=== PATIENT | female | born 1935 | race Caucasian/White ===

== ENCOUNTER 2024-05-23 11:26 | Inpatient (IN) ==
--- NOTE | 2024-05-23 12:07 | Emergency Department Note ---
History of Present Illness General Chief complaint: Dizziness Stated complaint: DIZZY, UNSTEADY GAIT Time Seen by Provider: 05/23/24 11:53 Source: patient, family (Niece who is at the bedside and a nurse), RN notes reviewed and old records reviewed (Old medical records were attempted to be reviewed but there are no old records at this hospital. ) Mode of arrival: ambulatory Limitations: no limitations History of Present Illness This patient is a 88-year-old female who comes in after having lightheadedness and dizziness. She describes it more as feeling like she is going to pass out when she stands up or moves her arms. She does have a history of frequent falls was not fallen recently. About 6 weeks ago, she fell or passed out and had a skull fracture and was inpatient at [facility]. She did not have any surgery. She also may have had a cardiac workup when she was there as well she does have a history aortic stenosis. She has had some intermittent headaches since then. No nausea vomiting no focal numbness or weakness she feels just generally weak. She does live independently at home. Occasional chest pain, this morning lasting up to 5 minutes with some shortness of breath. No abdominal pain. No fever or cough. Home Medications Medication Instructions Recorded Confirmed Type amlodipine 2.5 mg tablet 2.5 mg PO QAM 04/07/23 05/23/24 History aspirin 81 mg chewable tablet 81 mg PO QPM 04/07/23 05/23/24 History multivit with min-folic 1 tab PO QAM 04/07/23 05/23/24 History acid-lutein 400 mcg-250 mcg chewable tablet (Centrum Silver) potassium 99 mg tablet 99 mg PO QAM 04/07/23 05/23/24 History propranolol 10 mg tablet 10 mg PO BID 04/07/23 05/23/24 History calcium carbonate 600 mg-vitamin 1 tab PO QAM 12/15/23 05/23/24 History D3 5 mcg (200 unit) tablet vit C 250 mg-E 90 mg-zinc 40 1 tab PO BID 12/15/23 05/23/24 History mg-copper 1 [id number] chew tablet (PreserVision AREDS-2) Allergies Allergy/AdvReac Type Severity Reaction Status Date / Time Penicillins Allergy Unknown Hives Verified 04/27/24 10:58 Sulfa (Sulfonamide Allergy Unknown Hives Verified 04/27/24 10:58 Antibiotics) adhesive tape AdvReac Unknown skin Verified 04/27/24 10:58 irritation prefers paper tape Past Med/Surg History Problem List (Updated 05/23/24 @ 15:15 by Isak Rudolph MD) Weakness (Acute) Chest pain (Acute) History of traumatic head injury (Acute) History of fall (Acute) History of aortic stenosis (Acute) Aortic insufficiency Near syncope (Acute) Encounter for pre-operative examination Recurrent UTI No pertinent past medical history Nephrolithiasis Gastric peptic ulcer Hypertension Arthritis Pelvicaliectasis Medical History Incomplete bladder emptying History of anesthesia reaction slower to wake up with more recent procedures. 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 Trouble swallowing Occ with eating (improved with drinks in between) ; no issues taking pills Chronic /mild Multiple EGD with stretching - improvement in symptoms Essential tremor HTN (hypertension) if gets up too fast or moves to fast will get wobbly at times. Surgical History Hx of cardiac cath 2022 ? date...done due to Dr. Brown ordered/leaky aortic valve. No known further findings. [facility]. History of lithotripsy History of appendectomy History of colonoscopy History of esophagogastroduodenoscopy (EGD) hx esophagus stretched Hx of tonsillectomy Hx of cholecystectomy History of partial hysterectomy Family History Mother Hypertension Father Cancer Social History Smoking Status: Never smoker Do You Dip or Chew Tobacco: No; Hx Alcohol Use: No Hx Substance Use: No Preferred Language: Macedonian Communication Ability: Effective Communication Ability Comment: phone call with hippa contact, daughterinlaw paige/pt preference per paige. Plant Propagator Required: No Beliefs That Will Affect Care: None marital status: / Current Living Situation: Alone current occupational status: retired Feels Safe at Home: Yes Assistive Devices: Glasses Review of Systems A total of 10 systems reviewed and were otherwise negative Physical Exam Vital Signs Vital Signs - 24 hr 05/23/24 11:29 05/23/24 11:42 05/23/24 11:50 Temperature 36.5 C Temperature Source Temporal Artery Scan Pulse Rate 68 65 Pulse Rate [Apical] 65 Pulse Rhythm Regular Pulse Strength Normal Respiratory Rate 20 16 Respiratory Effort / Characteristics Non-Labored Spontaneous Respiratory Depth Normal Blood Pressure 134/54 L Blood Pressure [Left Arm] 160/71 H Blood Pressure Mean 80 Blood Pressure Mean [Left Arm] 100 Blood Pressure Position Sitting Pulse Oximetry 94 96 Oxygen Delivery Method Room Air Room Air Sepsis Recent Fever Within 48 Hours No Sepsis New/Unexplained Change in Mental Status N/A Sepsis Action Taken by Nursing No Action Required 05/23/24 12:48 05/23/24 14:00 Temperature Temperature Source Pulse Rate Pulse Rate [Apical] 60 64 Pulse Rhythm Pulse Strength Respiratory Rate 16 15 Respiratory Effort / Characteristics Respiratory Depth Blood Pressure Blood Pressure [Left Arm] 124/53 L 154/65 H Blood Pressure Mean Blood Pressure Mean [Left Arm] 76 94 Blood Pressure Position Pulse Oximetry 96 Oxygen Delivery Method Room Air Sepsis Recent Fever Within 48 Hours Sepsis New/Unexplained Change in Mental Status Sepsis Action Taken by Nursing General: Well developed well nourished cachectic older in no acute distress, breathing comfortably on room air. Normal speech HEENT: Normal cephalic atraumatic. There is a scab in the right scalp from where she injured her head 6 weeks ago. pupils are equal round and reactive to light. Extraocular movements are intact. Oropharynx is pink with moist mucous membranes. No swelling of the mouth lips or tongue. Neck: Supple with a midline trachea. No meningeal signs or stiffness, no JVD or bruits. No Stridor. Chest: Clear to auscultation bilaterally. No wheezes or rhonchi. No increased work of breathing. Heart: Regular rate and rhythm without murmurs or gallops. Abdomen: Soft nontender, nondistended without rebound guarding or rigidity. Extremities: No cyanosis clubbing or edema. No calf tenderness or assymetry Spine/Back. Non tender to palpation. No CVA tenderness Skin: Good turgor without rashes. Neurologic exam: Cranial nerves two through 12 are intact. Motor and sensation are intact and symmetrical throughout. Course Administered Medications Discontinued Medications Sodium Chloride (Nss) 250 mls @ 999 mls/hr IV .Q16M ONE Stop: 05/23/24 12:27 Last Infusion: 05/23/24 14:27 Dose: Infused Documented By: Admin: 05/23/24 12:53 Dose: 999 mls/hr Documented By: MARIANA Medical Decision Making Differential Diagnosis Arrhythmia, valvular heart disease, anemia, subdural, intracranial process, electrolyte or metabolic abnormality, infection, UTI Medical Records Attestation: I reviewed the patient's medical records. Home Medications Current Medication List: was personally reviewed by Laboratory Data Attestation: I reviewed the patient's lab results. 05/23/24 11:44 05/23/24 11:44 Lab Results 05/23/24 05/23/24 Range/Units 11:44 14:19 WBC 7.03 (4.8-10.8) K/ul RBC 4.38 (4.20-5.40) M/uL Hgb 13.6 (12.0-16.0) g/dl Hct 41.8 (37.0-47.0) % MCV 95.4 (80.0-100.0) fL MCH 31.1 (25.0-34.0) pg MCHC 32.5 (32.0-36.0) g/dL RDW Std Deviation 46.4 H (36.4-46.3) fL RDW Coeff of David 13.0 (11.5-14.5) % Plt Count 200 (130-400) K/uL MPV 10.4 (9.4-12.4) fL Immature Gran % (Auto) 0.1 % Neut % (Auto) 78.8 % Lymph % (Auto) 12.4 % [place] % (Auto) 7.7 % Eos % (Auto) 0.6 % Baso % (Auto) 0.4 % Neut # (Auto) 5.54 (1.40-6.50) K/uL Lymph # (Auto) 0.87 L (1.20-3.40) K/uL [place] # (Auto) 0.54 (0.11-0.59) K/uL Eos # (Auto) 0.04 (0.00-0.50) K/uL Baso # (Auto) 0.03 (0.00-0.20) K/uL Immature Gran # (Auto) 0.01 (0.01-0.20) K/uL PT 10.3 (9.0-12.0) Seconds INR 0.9 (0.9-1.1) APTT 26 (21-31) Seconds PTT Ratio 1.0 Sodium 141 (136-145) mmol/L Potassium 3.8 (3.5-5.1) mmol/L Chloride 102 (98-107) mmol/L Carbon Dioxide 32 (21-32) mmol/L Anion Gap 7 (3-11) BUN 18 (6-23) mg/dl Creatinine 0.74 (0.6-1.2) mg/dl Est Cr Clr Drug Dosing 27.7 ml/min Est GFR ( Amer) 83.8 ml/min Est GFR (Non-Af Amer) 72.3 ml/min BUN/Creatinine Ratio 24.3 H (10-20) Glucose 145 H (70-99(Fasting)) mg/dl Calcium 10.7 H (8.6-10.3) mg/dl Magnesium 2.1 (1.7-2.4) mg/dl Total Bilirubin 0.9 (0.2-1.0) mg/dl AST 28 (13-39) U/L ALT 16 (7-52) U/L Alkaline Phosphatase 62 (34-104) U/L Troponin I High Sens 9.1 (0-14) pg/ml Total Protein 8.2 (6.0-8.3) gm/dl Albumin 5.1 H (3.4-5.0) gm/dl Globulin 3.1 (2.5-4.0) gm/dl Albumin/Globulin Ratio 1.6 (0.9-2) TSH 4.229 (0.300-4.500) uIu/ml Urine Color Yellow Urine Appearance Cloudy A (Clear) Urine pH 6.5 (4.5-7.5) Ur Specific [place] 1.019 (1.000-1.030) Urine Protein Trace H (Negative) Urine Glucose (UA) Negative (Negative) Urine Ketones Negative (Negative) Urine Blood Negative (Negative) Urine Nitrite Negative (Negative) Urine Bilirubin Negative (Negative) Urine Urobilinogen Negative (Negative) Ur Leukocyte Esterase 2+ H (Negative) Urine WBC (Auto) 21-50 H (0-5) /hpf Urine RBC (Auto) 0-2 (0-2) /hpf U Hyaline Cast (Auto) 3-5 H (0-2) /lpf U Epithel Cells (Auto) 0-2 (0-2) /hpf Urine Bacteria (Auto) None Seen (None Seen) Imaging Data Attestation: I personally reviewed and interpreted this imaging study as follows: My Impression: Head CTno hemorrhage or mass effect seen Chest x-rayno acute infiltrate, failure, pneumothorax seen Radiologist's Impression: Chest X-Ray 05/23/24 12:05 XR chest 1V portable HISTORY: chest pain COMPARISON: Chest CT 02/12/2023. FINDINGS: No pneumothorax. No pleural effusions. The cardiac silhouette is top normal in size. A left lower lobe calcified granuloma is again noted. No acute fractures. No new focal lung consolidations to suggest a pneumonia. No evidence for pulmonary edema. There are few linear scarlike densities within the periphery the right upper lobe. There is an 18 mm focal irregular density within the left lung apex. This is better appreciated on the prior chest CT. IMPRESSION: 1. No acute process within the chest. 2. An 18 mm focal irregular density within the left lung apex which is better appreciated on the prior chest CT. This could represent an area of scarring or a developing pulmonary lesion. Therefore, follow-up nonemergent chest CT in 6 months is recommended to evaluate for stability. ACT 112: Positive. There are findings on this exam that require communication between the performing entity and the patient following Patient Test Result Information Act ([place] Act 112) guidelines. Electronically signed by: Krishna Boyce M.D. 05/23/2024 12:[address] 05/23/24 12:[address] DOSE: 547.75 mGy.cm HISTORY: syncope TECHNIQUE: Multiaxial CT images of the head were performed without the use of intravenous contrast. Automated exposure control was utilized for this study. A dose lowering technique was utilized adhering to the principles of ALARA. Comparison: None. Findings: The paranasal sinuses and mastoid air cells are clear. The calvarium and skull base are intact. There is no mass, hematoma, midline shift, acute infarct. White matter hypodensity is nonspecific but suggestive of microvascular ischemic change. The ventricles and sulci demonstrate mild age-related involutional changes. Impression: No acute intracranial abnormality. ACT 112: Negative or not required by law. Electronically signed by: Krishna Boyce M.D. 05/23/2024 12:49 PM ECG Data Attestation: I personally reviewed and interpreted this ECG as follows: Indication: + chest pain and + weakness Rate (beats per minute): 64 Rhythm: + normal sinus ECG Intervals/blocks: + Normal QRS, + Normal QT and + Normal MI ECG [place]: + Left axis deviation ECG ST segments: + Normal ST segments ECG Findings: no PACs or no PVCs MDM Narrative This patient comes in as scribed above she has been feeling weak and had near syncopal episodes. I am concerned as her niece who is an RN tells me she does have a history of aortic stenosis that could certainly be causing her symptoms or coronary artery disease as well. She also hit her head and had a skull fracture 6 weeks ago so also want a make sure she does have subdural. She has nothing just infection. IV access established blood work was obtained she was hydrated gently with a normal saline bolus. EKG multiple blood testing and CAT scans chest x-ray obtained she was reassessed frequently. Her workup was reassuring with a normal CAT scan. Chest x-ray shows no acute findings, there may be a nodule in the left upper lung. Her cardiac workup thus far is unremarkable with a nonischemic EKG and a normal troponin. She has no significant electrolyte or metabolic abnormalities. Her symptoms seem to be when she raises her arm so I do worry about a subclavian steal. She also has a history of aortic stenosis which could be causing the symptoms as well. I do think she needs a further cardiac workup in the hospital I discussed the case with Dr. Dee , from [facility] , who was consulted and will see the patient in the ER for admission/observation. Continuous cardiac monitoring: Orders placed in EMR for continuous cardiac monitoring: Upon my evaluation patient was noted to be in normal sinus with a rate of 65 Impression & Plan Near syncope, History of aortic stenosis, History of fall, History of traumatic head injury, Chest pain, Weakness Discharge Plan Visit Data Chief Complaint: Dizziness Stated Complaint: DIZZY, UNSTEADY GAIT ED Provider: Isak Rudolph Discharge Problem: Near syncope, History of aortic stenosis, History of fall, History of traumatic head injury, Chest pain, Weakness Forms Stand Alone Forms: My [facility] Prescriptions Prescriptions: No Action amlodipine 2.5 mg tablet 2.5 mg PO QAM aspirin 81 mg tablet,chewable 81 mg PO QPM Centrum Silver 400-250 mcg tablet,chewable 1 tab PO QAM potassium 99 mg tablet 99 mg PO QAM propranolol 10 mg tablet 10 mg PO BID PreserVision AREDS-2 250-90-40-1 mg Tablet,Chewable 1 tab PO BID Patient Comments: swallow form calcium carbonate-vitamin D3 600 mg-5 mcg (200 unit) Tablet 1 tab PO QAM Patient Comments: 20 mcg vitamin d Referrals Referrals: Norma Maynard CRNP [Primary Care Provider] - Discharge Problem: Chest pain Qualifiers: Chest pain type: unspecified Qualified Code(s): R07.9 - Chest pain, unspecified
--- NOTE | 2024-05-23 12:28 | XRay Report ---
XR chest 1V portable HISTORY: chest pain COMPARISON: Chest CT 02/12/2023. FINDINGS: No pneumothorax. No pleural effusions. The cardiac silhouette is top normal in size. A left lower lobe calcified granuloma is again noted. No acute fractures. No new focal lung consolidations to suggest a pneumonia. No evidence for pulmonary edema. There are few linear scarlike densities with in the periphery the right upper lobe. There is an 18 mm focal irregular density within the left lung apex. This is better appreciated on the prior chest CT. IMPRESSION: 1. No acute process within the chest. 2. An 18 mm focal irregular density within the left lung apex which is better appreciated on the prio r chest CT. This could represent an area of scarring or a developing pulmonary lesion. Therefore, fol low-up nonemergent chest CT in 6 months is recommended to evaluate for stability. ACT 112: Positive. There are findings on this exam that require communication between the performing entity and the patient following Patient Test Result Information Act ([place] Act 112) guidelines. Electronically signed by: Krishna Boyce M.D. 05/23/2024 12:26 PM
[2024-05-23 12:29] LABS: Basophils # (auto) 0.03 K/uL (0.00-0.20); Basophils % (auto) 0.4 %; Eosinophils # (auto) 0.04 K/uL (0.00-0.50); Eosinophils % (auto) 0.6 %; Hematocrit (blood only) 41.8 % (37.0-47.0); Hemoglobin 13.6 g/dl (12.0-16.0); Immature Granulocytes # (auto) 0.01 K/uL (0.01-0.20); Immature Granulocytes % (auto) 0.1 %; Lymphocytes # (auto) 0.87 K/uL (1.20-3.40); Lymphocytes % (auto) 12.4 %; Mean Corpuscular Hemoglobin 31.1 pg (25.0-34.0); Mean Corpuscular Hgb Conc 32.5 g/dL (32.0-36.0); Mean Corpuscular Volume 95.4 fL (80.0-100.0); Mean Platelet Volume 10.4 fL (9.4-12.4); Monocytes # (auto) 0.54 K/uL (0.11-0.59); Monocytes % (auto) 7.7 %; Neutrophils # (auto) 5.54 K/uL (1.40-6.50); Neutrophils % (auto) 78.8 %; Platelet Count 200 K/uL (130-400); RDW Standard Deviation 46.4 fL (36.4-46.3); Red Blood Count 4.38 M/uL (4.20-5.40); White Blood Count 7.03 K/ul (4.8-10.8)
[2024-05-23 12:37] LABS: Albumin Globulin Ratio 1.6 (0.9-2); Albumin Level 5.1 gm/dl (3.4-5.0); BUN Creatinine Ratio 24.3 (10-20); Bilirubin,Total 0.9 mg/dl (0.2-1.0); Calcium 10.7 mg/dl (8.6-10.3); Creatinine Clr Calc Pharmacy 27.7 ml/min; Est GFR (African American) 83.8 ml/min; Est GFR (Non-African American) 72.3 ml/min; Globulin 3.1 gm/dl (2.5-4.0); Magnesium 2.1 mg/dl (1.7-2.4); Potassium 3.8 mmol/L (3.5-5.1); Total Protein 8.2 gm/dl (6.0-8.3)
[2024-05-23 12:43] LABS: Troponin I High Sensitivity 9.1 pg/ml (0-14)
--- NOTE | 2024-05-23 12:51 | CT Scan Report ---
HEAD CT NONCONTRAST CT DOSE: 547.75 mGy.cm HISTORY: syncope TECHNIQUE: Multiaxial CT images of the head were performed without the use of intravenous contrast. A utomated exposure control was utilized for this study. A dose lowering technique was utilized adheri ng to the principles of ALARA. Comparison: None. Findings: The paranasal sinuses and mastoid air cells are clear. The calvarium and skull base are int act. There is no mass, hematoma, midline shift, acute infarct. White matter hypodensity is nonspecifi c but suggestive of microvascular ischemic change. The ventricles and sulci demonstrate mild age-rela jeffrey involutional changes. Impression: No acute intracranial abnormality. ACT 112: Negative or not required by law. Electronically signed by: Krishna Boyce M.D. 05/23/2024 12:49 PM
[2024-05-23 12:52] LABS: Thyroid Stimulating Hormone 4.229 uIu/ml (0.300-4.500)
[2024-05-23] MEDS: SODIUM CHLORIDE 0.9% 250 ML IV ONE (12:53)
[2024-05-23 12:58] LABS: INR 0.9 (0.9-1.1); Partial Thromboplastin Time 26 Seconds (21-31); Prothrombin Time 10.3 Seconds (9.0-12.0)
--- NOTE | 2024-05-23 13:38 | History & Physical Report ---
Date of Service May 23, 2024 Assessment & Plan (1) Near syncope: (2) Aortic insufficiency: (3) Hypertension: (4) Recurrent UTI: (5) Pelvicaliectasis: Plan Ms. Powell is an 88 year old woman with past medical history remarkable for spasmodic dysphonia, pelvicaliectasis, essential tremor, severe aortic insufficiency, HTN, gait abnormality presented to [facility] ED due to dizziness and near syncope. Patient admitted for evaluation of dizziness. #Near syncope #Aortic Insufficiency per records #Ambulatory dysfunction #Hx of gait abnormality, use of assistive device at baseline Progressive dizziness, near syncope with mechanical fall 6 weeks ago No cardiac records on file outside of [facility] 11/2023 with documentation of aortic insufficiency CT head reviewed, without intracranial hemorrhage -Admit med/tele to monitor for arrhythmia -ECHO to eval severity of aortic insufficiency, consider Cards -Permissive HTN, allow for pressure in 140-160s -Hold home amlodipine and propranolol for now -Carotid dopplers ordered -Orthostatic vital signs ordered -PT/OT -Fall precautions -Continue ASA -UA r/o infection contributing given history -b12 and folate in am #hypercalcemia hold home PO supplement possible iso dehydration s/p IVF Repeat in am #Essential tremor Hold propranolol for now given above #HTN hold home amlodipine and propranolol #pelvicaliectasis #Hx of recurrent uti follows urology UA as above No signs of overt infection, will hold abx #Severe protein calorie malnutrition BMI 14.4 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 History of Present Illness Chief Complaint: Dizziness Primary Care Provider: KARINA Perea Ms. Powell is an 88 year old woman with past medical history remarkable for spasmodic dysphonia, pelvicaliectasis, essential tremor, severe aortic insufficency, HTN, gait abnormality presented to [facility] ED due to dizziness and near syncope. Patient reports progressive dizziness and near syncope. She states she was dizzy around the time of a fall that resulted in a skull fracture about 6 weeks ago with admission in [place]. Patient states she has only worsened--the dizziness is exacerbated with standing and position changes. She ambulates at baseline with cane/walker (depending if in home or out). Discussed evaluation by neurology in 2020 for gait abnormality, she states the imbalance she feels chronically is different than what she is experiencing. 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 She does endorse intermittent chest pains, that come on spontaneously marked by substernal pressure then resolve in 5-10minutes. She denies any active chest pain, nausea, vomiting. She endorses chronic urinary frequency, but no dysuria at this time. She reports normal bowel movements. She denies any vision changes or focal neuro deficits. Review of recent med clearance for cystoscopy scanned on 12/15/2023 has hand written note from [employer] which states "continue ASA. severe aortic insufficiency, medically managed." In the ED, vitals were notable for BP of 120-130s, HRs in 60s, and O2 sat of high 90s on room air. Labs with Ca 10, suggestive perhaps of dehydration Imaging revealed no sign of acute intracranial abnormality EKG ordered ED interventions: 250cc bolus Patient to be admitted to med/tele for further evaluation and management of dizziness Allergies Allergy/AdvReac Type Severity Reaction Status Date / Time Penicillins Allergy Unknown Hives Verified 04/27/24 10:58 Sulfa (Sulfonamide Allergy Unknown Hives Verified 04/27/24 10:58 Antibiotics) adhesive tape AdvReac Unknown skin Verified 04/27/24 10:58 irritation prefers paper tape Home Medications Medication Instructions Recorded Confirmed Type amlodipine 2.5 mg tablet 2.5 mg PO QAM 04/07/23 05/23/24 History aspirin 81 mg chewable tablet 81 mg PO QPM 04/07/23 05/23/24 History multivit with min-folic 1 tab PO QAM 04/07/23 05/23/24 History acid-lutein 400 mcg-250 mcg chewable tablet (Centrum Silver) potassium 99 mg tablet 99 mg PO QAM 04/07/23 05/23/24 History propranolol 10 mg tablet 10 mg PO BID 04/07/23 05/23/24 History calcium carbonate 600 mg-vitamin 1 tab PO QAM 12/15/23 05/23/24 History D3 5 mcg (200 unit) tablet vit C 250 mg-E 90 mg-zinc 40 1 tab PO BID 12/15/23 05/23/24 History mg-copper 1 [id number]-guyxnu-dscwuv chew tablet (PreserVision AREDS-2) Past Med/Surg History Problem List (Updated 05/23/24 @ 14:28 by Fabby Dee MD) Aortic insufficiency Near syncope Encounter for pre-operative examination Recurrent UTI No pertinent past medical history Nephrolithiasis Gastric peptic ulcer Hypertension Arthritis Pelvicaliectasis Medical History Incomplete bladder emptying History of anesthesia reaction slower to wake up with more recent procedures. 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 Trouble swallowing Occ with eating (improved with drinks in between) ; no issues taking pills Chronic /mild Multiple EGD with stretching - improvement in symptoms Essential tremor HTN (hypertension) if gets up too fast or moves to fast will get wobbly at times. Surgical History Hx of cardiac cath 2022 ? date...done due to Dr. Brown ordered/leaky aortic valve. No known further findings. [facility]. History of lithotripsy History of appendectomy History of colonoscopy History of esophagogastroduodenoscopy (EGD) hx esophagus stretched Hx of tonsillectomy Hx of cholecystectomy History of partial hysterectomy Family History Mother Hypertension Father Cancer Social History Smoking Status: Never smoker Do You Dip or Chew Tobacco: No; Hx Alcohol Use: No Hx Substance Use: No Preferred Language: Georgian Communication Ability: Effective Communication Ability Comment: phone call with hippa contact, daughterinlaw paige/pt preference per paige. 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 Head: (-) headache, (-) dizziness. Eye: (-) blurring of vision, (-) double vision, (-) redness. Ear: (-) hearing loss, (-) discharge, (-) vertigo Nose: (-) discharge, (-) bleeding, (-) congestion, (-) post nasal drip. Throat: (-) sore throat, (-) hoarseness of voice, (-) odynophagia. Cardiovascular: (+) chest pain--intermittently, (-) palpitations, (+) near syncope, (-) orthopnea, (-) PND, (-) leg swelling. Respiratory: (+) shortness of breath, intermittently, (-) cough, (-) wheezing, (-) hemoptysis. Neuro: (-) weakness in extremities, (-) numbness, (-) tingling, (-) tremor., (+) dizziness Gastrointestinal: (-) belly pain, (-) belly distension, (-) nausea, (-) vomiting, (-) diarrhea, (-) constipation hematochezia, (-) bowel incontinence Genitourinary: (-) hematuria, (-) dysuria, (-) polyuria, (-) hesitancy, (+) frequency, (-) urinary incontinence. Musculoskeletal: (-) myalgia, (-) arthralgia. Skin: (-) rashes. Endocrine: (-) heat/cold intolerance. Psychiatry: (-) depression, (-) hallucination. Physical Exam Physical Exam: GENERAL APPEARANCE: AxOx4, thin cachectic female pleasant HEENT: NC, AT. EOMI, clear conjunctiva, oropharynx clear. dry mucous membranes NECK: No stiffness or restricted ROM. HEART: Normal rate and regular rhythm, +HARRY LUNGS: CTAB, moving air well. No crackles or wheezes are heard. ABDOMEN: Soft, nontender, nondistended with good bowel sounds heard. EXTREMITIES: Without cyanosis, clubbing or edema. NEUROLOGICAL: Grossly nonfocal. Alert and oriented, moving all 4 extremities. CN not formally tested but appear grossly intact. Observed to ambulate with normal gait. Skin: Warm and dry without any rash. Results & Data Results & Data Vital Signs (Past 12 Hours) Vital Signs Temp Pulse Pulse Resp BP BP Pulse Ox 05/23/24 12:48 60 16 124/53 L 96 05/23/24 11:50 65 16 160/71 H 96 05/23/24 11:42 65 05/23/24 11:29 36.5 C 68 20 134/54 L 94 O2 Del Method 05/23/24 12:48 Room Air 05/23/24 11:50 Room Air 05/23/24 11:42 05/23/24 11:29 Room Air Laboratory Results Short CBC 05/23/24 Range/Units 11:44 WBC 7.03 (4.8-10.8) K/ul Hgb 13.6 (12.0-16.0) g/dl Hct 41.8 (37.0-47.0) % Plt Count 200 (130-400) K/uL BMP 05/23/24 11:44 Sodium 141 Potassium 3.8 Chloride 102 Carbon Dioxide 32 BUN 18 Creatinine 0.74 Glucose 145 H Calcium 10.7 H Liver Function 05/23/24 Range/Units 11:44 Total Bilirubin 0.9 (0.2-1.0) mg/dl AST 28 (13-39) U/L ALT 16 (7-52) U/L Alkaline Phosphatase 62 (34-104) U/L Albumin 5.1 H (3.4-5.0) gm/dl Diagnostic Findings EM08/2021: ;Abnormal study. 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 The subtle findings are likely within normal limits or appropriate for age. There is no electrophysiological evidence of a myopathy. Chest X-Ray 05/23/24 12:05 XR chest 1V portable HISTORY: chest pain COMPARISON: Chest CT 02/12/2023. FINDINGS: No pneumothorax. No pleural effusions. The cardiac silhouette is top normal in size. A left lower lobe calcified granuloma is again noted. No acute fractures. No new focal lung consolidations to suggest a pneumonia. No evidence for pulmonary edema. There are few linear scarlike densities within the periphery the right upper lobe. There is an 18 mm focal irregular density within the left lung apex. This is better appreciated on the prior chest CT. IMPRESSION: 1. No acute process within the chest. 2. An 18 mm focal irregular density within the left lung apex which is better appreciated on the prior chest CT. This could represent an area of scarring or a developing pulmonary lesion. Therefore, follow-up nonemergent chest CT in 6 months is recommended to evaluate for stability. ACT 112: Positive. There are findings on this exam that require communication between the performing entity and the patient following Patient Test Result Information Act ([place] Act 112) guidelines. Electronically signed by: Krishna Boyce M.D. 05/23/2024 12:[address] 05/23/24 12:[address] DOSE: 547.75 mGy.cm HISTORY: syncope TECHNIQUE: Multiaxial CT images of the head were performed without the use of intravenous contrast. Automated exposure control was utilized for this study. A dose lowering technique was utilized adhering to the principles of ALARA. Comparison: None. Findings: The paranasal sinuses and mastoid air cells are clear. The calvarium and skull base are intact. There is no mass, hematoma, midline shift, acute infarct. White matter hypodensity is nonspecific but suggestive of microvascular ischemic change. The ventricles and sulci demonstrate mild age-related involutional changes. Impression: No acute intracranial abnormality. ACT 112: Negative or not required by law. Electronically signed by: Krishna Boyce M.D. 05/23/2024 12:49 PM Medications Administered Home Medications Medication Instructions Recorded Confirmed Last Taken amlodipine 2.5 mg tablet 2.5 mg PO QAM 04/07/23 04/27/24 12/23/23 08:00 ascorbate calcium (vitamin C) 500 500 mg PO QAM 04/07/23 04/27/24 12/22/23 08:00 mg tablet aspirin 81 mg chewable tablet 81 mg PO QPM 04/07/23 04/27/24 12/22/23 17:30 multivit with min-folic 1 tab PO QAM 04/07/23 04/27/24 12/22/23 08:00 acid-lutein 400 mcg-250 mcg chewable tablet (Centrum Silver) potassium 99 mg tablet 99 mg PO QAM 04/07/23 04/27/24 12/22/23 17:30 propranolol 10 mg tablet 10 mg PO BID 04/07/23 04/27/24 12/23/23 08:00 nitrofurantoin 100 mg PO BID 7 days #14 caps 12/14/23 04/27/2412/22/24 08:00 monohydrate/macrocrystals 100 mg capsule (Macrobid) calcium carbonate 600 mg-vitamin 1 tab PO QAM 12/15/23 04/27/24 12/22/23 08:00 D3 5 mcg (200 unit) tablet vit C 250 mg-E 90 mg-zinc 40 1 tab PO BID 12/15/23 04/27/24 12/22/23 08:00 mg-copper 1 [id number]-vvozmp chew tablet (PreserVision AREDS-2) vibegron 75 mg tablet 75 mg PO DAILY #30 tabs 12/31/23 04/27/24 Unknown phenazopyridine 100 mg tablet 100 mg PO TID #90 tabs 01/01/24 04/27/24 Unknown (Pyridium) nitrofurantoin 100 mg PO BID 7 days #14 caps 01/22/24 04/27/24 Unknown monohydrate/macrocrystals 100 mg capsule (Macrobid) conjugated estrogens 0.625 mg/gram 0.625 mg vaginal DAILY #30 grams 01/26/24 04/27/24 Unknown vaginal cream estradiol 0.01% (0.1 mg/gram) 1 appful vaginal DAILY #42.5 grams 01/27/24 04/27/24 Unknown vaginal cream
[2024-05-23 14:57] LABS: Appearance Urine Cloudy (Clear); Bacteria Urine Automated None Seen (None Seen); Bilirubin Urine Negative (Negative); Blood Urine Negative (Negative); Color Urine Yellow; Epithelial Cell Urine Auto 0-2 /hpf (0-2); Glucose Urine UA Negative (Negative); Ketones Urine Negative (Negative); Leukocyte Esterase Urine 2+ (Negative); Nitrite Urine Negative (Negative); Protein Urine Trace (Negative); RBC Urine Automated 0-2 /hpf (0-2); Specific Gravity Urine 1.019 (1.000-1.030); Urobilinogen Urine Negative (Negative); WBC Urine Automated 21-50 /hpf (0-5); pH Urine 6.5 (4.5-7.5)
--- NOTE | 2024-05-23 16:26 | Ultrasound Report ---
BILATERAL CAROTID DOPPLER STUDY HISTORY: dizziness/presyncope COMPARISON: None. TECHNIQUE: Real-time, grayscale, and color Doppler sonography of the carotid arteries was performed. Imaging reviewed in the transverse and longitudinal planes. All measurements were calculated based on NASCET criteria. FINDINGS: Antegrade flow is seen in the bilateral vertebral arteries. Mild to moderate calcified plaque within the bilateral carotid bifurcations.. The peak systolic velocity within the right ICA is 64 cm/s. The right systolic ratio is 1.0. The peak systolic velocity within the left ICA is 75 cm/s. The left systolic ratio is 1.2. IMPRESSION: No hemodynamically significant stenosis seen within the carotid arteries. ACT 112: Negative or not required by law. Electronically signed by: Krishna Boyce M.D. 05/23/2024 4:24 PM
[2024-05-23] MEDS ORDERED: ACETAMINOPHEN 325 MG TAB PO PRN (17:11)
[2024-05-23] MEDS ORDERED: ARTIFICIAL TEARS OPB PRN (17:11)
[2024-05-23] MEDS: ASPIRIN 81 MG CHEW PO SCH (20:41)
[2024-05-23] MEDS: HEPARIN SOD 5,000 UNIT/0.5 ML VIAL SQ SCH (20:45)
--- NOTE | 2024-05-23 21:40 | Electrocardiogram Report ---
Test Reason : Blood Pressure : */* mmHG Vent. Rate : 64 BPM Atrial Rate : 64 BPM P-R Int : 178 ms QRS Dur : 76 ms QT Int : 442 ms P-R-T Axes : 87 -75 74 degrees QTcB Int : 455 ms Normal sinus rhythm Left axis deviation Inferior infarct , age undetermined Possible Anterior infarct ST elevation, consider anterior injury Abnormal ECG No previous ECGs available Reconfirmed by Steven Reyes ([id number]) on 05/23/2024 9:41:39 PM Referred By: Norma Maynard Confirmed By: Steven Reyes
--- NOTE | 2024-05-24 07:09 | Hospitalist Progress Note ---
Date of Service May 24, 2024 Assessment & Plan (1) Near syncope: (2) Aortic insufficiency: (3) Hypertension: (4) Recurrent UTI: (5) Pelvicaliectasis: Plan Ms. Powell is an 88 year old woman with past medical history remarkable for spasmodic dysphonia, pelvicaliectasis, essential tremor, severe aortic insufficiency, HTN, gait abnormality presented to [facility] ED due to dizziness and near syncope. Patient admitted for evaluation of dizziness. #Near syncope #Aortic Insufficiency per records #Ambulatory dysfunction #Hx of gait abnormality, use of assistive device at baseline Progressive dizziness, near syncope with mechanical fall 6 weeks ago No cardiac records on file outside of [facility] 11/2023 with documentation of aortic insufficiency CT head reviewed, without intracranial hemorrhage -Admit med/tele to monitor for arrhythmia -Permissive HTN, allow for pressure in 140-160s -Hold home amlodipine and propranolol for now -Carotid dopplers: mild arthrosclerotic disease -Orthostatic vital signs negative -PT/OT pending -Fall precautions -Continue ASA -UA without bacteria and patient with clinical improvement, CTM -ECHO to eval severity of aortic insufficiency, pending #Anemia hgb likely near baseline, noted to be 13 on admission and now 11--no signs of bleeding -b12 and folate wnl, iron studies added on Repeat BMP #hypercalcemia *resolving hold home PO supplement possible iso dehydration s/p IVF Repeat in am #Essential tremor Hold propranolol for now given above #HTN hold home amlodipine and propranolol #pelvicaliectasis #Hx of recurrent uti follows urology UA as above No signs of overt infection, will hold abx #Severe protein calorie malnutrition BMI 14.4 sign maintenance consult, 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 TID diet vegetarian dvt heparin q12 Admission and Anticipated Discharge Date Admission Date: May 23, 2024 Subjective evaluated in bedside chair Reports feeling improved this am, denies any chest pain or acute symptoms States she feels good sitting and eating Physical Exam Constitutional: WD/WN, vitals as above Respiratory: normal respiratory effort, lungs clear to auscultation Cardiovascular: HARRY+ Results & Data Results & Data Vital Signs (Past 12 Hours) Vital Signs Temp Pulse Pulse Resp BP Pulse Ox O2 Del Method 05/24/24 03:19 36.8 C 58 L 14 128/67 97 Room Air 05/23/24 23:14 62 05/23/24 23:00 36.5 C 60 16 129/67 98 Room Air 05/23/24 19:33 36.4 C L 64 16 170/49 H 99 Room Air Laboratory Results Short CBC 05/23/24 05/24/24 Range/Units 11:44 07:29 WBC 7.03 4.53 L (4.8-10.8) K/ul Hgb 13.6 11.0 L (12.0-16.0) g/dl Hct 41.8 33.5 L (37.0-47.0) % Plt Count 200 169 (130-400) K/uL BMP 05/23/24 05/24/24 11:44 07:29 Sodium 141 141 Potassium 3.8 4.1 Chloride 102 108 H Carbon Dioxide 32 30 BUN 18 14 Creatinine 0.74 0.55 L Glucose 145 H 87 Calcium 10.7 H 9.0 Liver Function 05/23/24 05/24/24 Range/Units 11:44 07:29 Total Bilirubin 0.9 0.7 (0.2-1.0) mg/dl AST 28 19 (13-39) U/L ALT 16 9 (7-52) U/L Alkaline Phosphatase 62 40 (34-104) U/L Albumin 5.1 H 3.7 (3.4-5.0) gm/dl Urine 05/23/24 Range/Units 14:19 Urine Color Yellow Urine Appearance Cloudy A (Clear) Urine pH 6.5 (4.5-7.5) Ur Specific [place] 1.019 (1.000-1.030) Urine Protein Trace H (Negative) Urine Glucose (UA) Negative (Negative) Medications Administered Home Medications Medication Instructions Recorded Confirmed Last Taken amlodipine 2.5 mg tablet 2.5 mg PO QA 04/07/23 05/23/24 05/23/24 aspirin 81 mg chewable tablet 81 mg PO QPM 04/07/23 05/23/24 05/23/24 multivit with min-folic 1 tab PO QA 04/07/23 05/23/24 05/23/24 acid-lutein 400 mcg-250 mcg chewable tablet (Centrum Silver) potassium 99 mg tablet 99 mg PO QAM 04/07/23 05/23/24 05/23/24 propranolol 10 mg tablet 10 mg PO BID 04/07/23 05/23/24 05/23/24 calcium carbonate 600 mg-vitamin 1 tab PO QAM 12/15/23 05/23/24 05/23/24 D3 5 mcg (200 unit) tablet vit C 250 mg-E 90 mg-zinc 40 1 tab PO BID 12/15/23 05/23/24 05/23/24 mg-copper 1 lo-kzfumf-uzybqe chew tablet (PreserVision AREDS-2) Active Medications Generic Name Dose Route Start Last Admin Trade Name Danialq PRN Reason Stop Dose Admin Aspirin 81 mg 05/23/24 21:00 05/23/24 20:41 Aspirin 81 Mg Chew PO 06/22/24 20:59 81 mg QPM ABBE Administration Heparin Sodium (Porcine) 5,000 units 05/23/24 21:00 05/24/24 08:01 Heparin Sod 5,000 Unit/0.5 Ml Vial SQ 06/22/24 20:59 5,000 units Q12 ABBE Administration Multivitamins/Minerals 1 tab 05/24/24 09:00 05/24/24 08:01 Cerovite Adv Formula Tab PO 06/23/24 08:59 1 tab QAM ABBE Administration
[2024-05-24] MEDS: CEROVITE ADV FORMULA TAB PO SCH (08:01)
[2024-05-24 08:49] LABS: Albumin Globulin Ratio 1.8 (0.9-2); Albumin Level 3.7 gm/dl (3.4-5.0); BUN Creatinine Ratio 25.5 (10-20); Bilirubin,Total 0.7 mg/dl (0.2-1.0); Creatinine Clr Calc Pharmacy 39.5 ml/min; Est GFR (African American) 97.1 ml/min; Est GFR (Non-African American) 83.7 ml/min; Globulin 2.1 gm/dl (2.5-4.0); Magnesium 1.9 mg/dl (1.7-2.4); Phosphorus 3.3 mg/dl (2.5-4.9); Potassium 4.1 mmol/L (3.5-5.1); Total Protein 5.8 gm/dl (6.0-8.3)
[2024-05-24 08:54] LABS: Hematocrit (blood only) 33.5 % (37.0-47.0); Mean Corpuscular Hemoglobin 31.2 pg (25.0-34.0); Mean Corpuscular Hgb Conc 32.8 g/dL (32.0-36.0); Mean Corpuscular Volume 94.9 fL (80.0-100.0); Mean Platelet Volume 10.7 fL (9.4-12.4); Platelet Count 169 K/uL (130-400); RDW Coefficient of Variation 13.2 % (11.5-14.5); RDW Standard Deviation 45.6 fL (36.4-46.3); Red Blood Count 3.53 M/uL (4.20-5.40); White Blood Count 4.53 K/ul (4.8-10.8)
[2024-05-24 09:00] LABS: Folate (Folic Acid),Ser orPlas > 22.30 ng/ml (>5.38)
[2024-05-24 09:01] LABS: Vitamin B12 481 pg/ml (180-914)
[2024-05-24 10:08] LABS: Ferritin 50.1 ng/ml (8-388)
[2024-05-24] MEDS ORDERED: MECLIZINE 12.5 MG TAB PO PRN (15:17)
[2024-05-25 07:05] LABS: Hematocrit (blood only) 34.1 % (37.0-47.0); Mean Corpuscular Hemoglobin 30.6 pg (25.0-34.0); Mean Corpuscular Hgb Conc 32.3 g/dL (32.0-36.0); Mean Corpuscular Volume 94.7 fL (80.0-100.0); Mean Platelet Volume 10.7 fL (9.4-12.4); Platelet Count 174 K/uL (130-400); RDW Coefficient of Variation 13.2 % (11.5-14.5); RDW Standard Deviation 45.9 fL (36.4-46.3); White Blood Count 6.23 K/ul (4.8-10.8)
[2024-05-25 07:25] LABS: BUN Creatinine Ratio 22.4 (10-20); Calcium 9.4 mg/dl (8.6-10.3); Creatinine Clr Calc Pharmacy 37.4 ml/min; Est GFR (African American) 95.4 ml/min; Est GFR (Non-African American) 82.3 ml/min; Phosphorus 3.7 mg/dl (2.5-4.9); Potassium 4.1 mmol/L (3.5-5.1)
--- NOTE | 2024-05-25 17:37 | Hospitalist Progress Note ---
Date of Service May 25, 2024 Assessment & Plan (1) Near syncope: (2) Aortic insufficiency: (3) Hypertension: (4) Recurrent UTI: (5) Pelvicaliectasis: Plan Per Previous hospitalist notes with addendum: Ms. Powell is an 88 year old woman with past medical history remarkable for spasmodic dysphonia, pelvicaliectasis, essential tremor, severe aortic insufficiency, HTN, gait abnormality presented to [facility] ED due to dizziness and near syncope. Patient admitted for evaluation of dizziness. #Near syncope #Aortic Insufficiency per records #Ambulatory dysfunction #Hx of gait abnormality, use of assistive device at baseline Progressive dizziness, near syncope with mechanical fall 6 weeks ago No cardiac records on file outside of [facility] 11/2023 with documentation of aortic insufficiency CT head reviewed, without intracranial hemorrhage -Admit med/tele to monitor for arrhythmia -Permissive HTN, allow for pressure in 140-160s -Hold home amlodipine and propranolol for now -Carotid dopplers: mild arthrosclerotic disease -Orthostatic vital signs negative -PT/OT pending -Fall precautions -Continue ASA -UA without bacteria and patient with clinical improvement, CTM -ECHO to eval severity of aortic insufficiency, pending 05/25 Positive orthostatic hypotension Amlodipine and propranolol on hold Given IV fluids Carotid studies: No significant stenosis 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 arrhythmias so far Compression stockings ordered Continue to monitor orthostatic vital signs PT OT evaluation May need acute rehab or fdc facility #Anemia hgb likely near baseline, noted to be 13 on admission and now 11--no signs of bleeding -b12 and folate wnl, iron studies added on Repeat BMP #hypercalcemia *resolving hold home PO supplement possible iso dehydration s/p IVF Resolved #Essential tremor Hold propranolol for now given above No tremors observed #HTN hold home amlodipine and propranolol BP on the lower side even off above blood pressure medications Monitor closely #pelvicaliectasis #Hx of recurrent uti follows urology UA as above No signs of overt infection, will hold abx #Severe protein calorie malnutrition BMI 14.4 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 Seen sitting up in bedside chair, comfortable, in good spirits States she feels improved today compared to yesterday Less dizzy when standing and ambulating to bathroom Denies chest pain, shortness of breath, palpitations No other new symptoms Review of Systems Review of Systems: all noted and negative except for above Physical Exam Physical Exam: General- oriented x 3, not in distress, speaks in sentences with no effort or accessory muscle use Eyes- anicteric Neck- no JVD Lungs- clear breath sounds bilaterally, no rales/wheezes Heart- normal rate, regular rhythm; no murmurs Abdomen- normal bowel sounds, nondistended, soft, no tenderness Extremities- no pretibial edema, no calf tenderness Neuro- alert, oriented x 3; no gross focal neurologic deficits Skin- warm & dry Results & Data Results & Data Vital Signs (Past 12 Hours) Vital Signs Temp Pulse Pulse Resp BP Pulse Ox O2 Del Method 05/25/24 15:06 36.5 C 72 16 115/58 L 97 Room Air 05/25/24 13:00 74 05/25/24 11:04 36.6 C 63 18 108/61 97 Room Air 05/25/24 09:45 Room Air 05/25/24 07:21 36.0 C L 62 18 144/69 H 99 Room Air 05/25/24 05:43 58 L all noted and reviewed including below
[2024-05-25] MEDS: NAPROXEN 250 MG TAB PO PRN (20:35)
--- NOTE | 2024-05-26 18:01 | Hospitalist Progress Note ---
Date of Service May 26, 2024 delayed entry date of service noted above Assessment & Plan (1) Near syncope: (2) Aortic insufficiency: (3) Hypertension: (4) Recurrent UTI: (5) Pelvicaliectasis: Plan Per Previous hospitalist notes with addendum: Ms. Powell is an 88 year old woman with past medical history remarkable for spasmodic dysphonia, pelvicaliectasis, essential tremor, severe aortic insufficiency, HTN, gait abnormality presented to [facility] ED due to dizziness and near syncope. Patient admitted for evaluation of dizziness. #Near syncope #Aortic Insufficiency per records #Ambulatory dysfunction #Hx of gait abnormality, use of assistive device at baseline Progressive dizziness, near syncope with mechanical fall 6 weeks ago No cardiac records on file outside of [facility] 11/2023 with documentation of aortic insufficiency CT head reviewed, without intracranial hemorrhage -Admit med/tele to monitor for arrhythmia -Permissive HTN, allow for pressure in 140-160s -Hold home amlodipine and propranolol for now -Carotid dopplers: mild arthrosclerotic disease -Orthostatic vital signs negative -PT/OT pending -Fall precautions -Continue ASA -UA without bacteria and patient with clinical improvement, CTM -ECHO to eval severity of aortic insufficiency, pending 05/25 Positive orthostatic hypotension Amlodipine and propranolol on hold Given IV fluids Carotid studies: No significant stenosis 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 so 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 Echo: EF 60-65%, gr 1 diastolic dysfunction, moderate aortic regurgitation Compression stockings ordered Continue to monitor orthostatic vital signs PT OT evaluation May need acute rehab or longterm facility 05/26 orthostatic hypotension resolving with current management- Amlodipine, Propranolol on hold still has some dizziness and unsteadiness with walking continue to monitor closely #Anemia hgb likely near baseline, noted to be 13 on admission and now 11--no signs of bleeding -b12 and folate wnl, iron studies added on - Hg stable at 11 #hypercalcemia *resolving hold home PO supplement possible iso dehydration s/p IVF Resolved #Essential tremor Hold propranolol for now given above No tremors observed #HTN hold home amlodipine and propranolol BP on the lower side even off above blood pressure medications Monitor closely #Pelvicaliectasis #Hx of recurrent uti - follows urology UA as above No signs of overt infection, will hold abx #Severe protein calorie malnutrition BMI 14.4 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, 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 TID diet vegetarian dvt heparin q12 Disposition pending Admission and Anticipated Discharge Date Admission Date: May 23, 2024 Subjective ff up for dizziness, etc seen resting in bed, not in distress states she feels that she is gradually improving still felt some dizziness and unsteadiness while ambulating to the bathroom no chest pain, dyspnea, palpitations no abdominal pain, nausea/vomiting no fever/chills reports bilateral hands and feet getting painful intermittently- "like in the winter" denies stiffness of the joints of the hands or feet in the morning no other symptoms Review of Systems Review of Systems: all noted and negative except for above Physical Exam Physical Exam: General- oriented x 3, not in distress, speaks in sentences with no effort or accessory muscle use Eyes- anicteric Neck- no JVD Lungs- clear breath sounds bilaterally, no crackles or wheezing Heart- normal rate, regular rhythm; no murmurs Abdomen- normal bowel sounds, nondistended, soft, no tenderness Extremities- no pretibial edema, no calf tenderness bilateral hands: no joint edema, redness, tenderness, warmth (+) full range of motion Neuro- alert, oriented x 3; no new gross focal neurologic deficits Skin- warm & dry Results & Data Results & Data Vital Signs (Past 12 Hours) Vital Signs Temp Pulse Pulse Resp BP Pulse Ox O2 Del Method 05/26/24 16:36 71 05/26/24 15:27 36.6 C 75 20 130/54 L 98 Room Air 05/26/24 11:02 36.4 C L 65 20 104/58 L 98 Room Air 05/26/24 07:38 36.4 C L 63 20 132/65 98 Room Air 05/26/24 07:36 61
--- NOTE | 2024-05-27 17:47 | Hospitalist Progress Note ---
Date of Service May 27, 2024 Assessment & Plan (1) Near syncope: (2) Aortic insufficiency: (3) Hypertension: (4) Recurrent UTI: (5) Pelvicaliectasis: Plan Per Previous hospitalist notes with addendum: Ms. Powell is an 88 year old woman with past medical history remarkable for spasmodic dysphonia, pelvicaliectasis, essential tremor, severe aortic insufficiency, HTN, gait abnormality presented to [facility] ED due to dizziness and near syncope. Patient admitted for evaluation of dizziness. #Near syncope #Aortic Insufficiency per records #Ambulatory dysfunction #Hx of gait abnormality, use of assistive device at baseline Progressive dizziness, near syncope with mechanical fall 6 weeks ago No cardiac records on file outside of [facility] 11/2023 with documentation of aortic insufficiency CT head reviewed, without intracranial hemorrhage -Admit med/tele to monitor for arrhythmia -Permissive HTN, allow for pressure in 140-160s -Hold home amlodipine and propranolol for now -Carotid dopplers: mild arthrosclerotic disease -Orthostatic vital signs negative -PT/OT pending -Fall precautions -Continue ASA -UA without bacteria and patient with clinical improvement, CTM -ECHO to eval severity of aortic insufficiency, pending 05/25 Positive orthostatic hypotension Amlodipine and propranolol on hold Given IV fluids Carotid studies: No significant stenosis telemetry monitor: No arrhythmias so far Echo: EF 60-65%, gr 1 diastolic dysfunction, moderate aortic regurgitation Compression stockings ordered Continue to monitor orthostatic vital signs PT OT evaluation May need acute rehab or care home facility 05/26 orthostatic hypotension resolving with current management- Amlodipine, Propranolol on hold still has some dizziness and unsteadiness with walking continue to monitor closely 05/27 Blood pressure continues to improve PT OT in progress Awaiting to transition to care home facility #Anemia hgb likely near baseline, noted to be 13 on admission and now 11--no signs of bleeding -b12 and folate wnl, iron studies added on - Hg stable at 11 #hypercalcemia *resolving hold home PO supplement possible iso dehydration s/p IVF Resolved #Essential tremor Hold propranolol for now given above No tremors observed #HTN hold home amlodipine and propranolol BP on the lower side even off above blood pressure medications Monitor closely #Pelvicaliectasis #Hx of recurrent uti - follows urology UA as above No signs of overt infection, will hold abx #Severe protein calorie malnutrition BMI 14.4 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 Seen resting in bed side chair, comfortable, watching TV States she continues to feel improved overall Was able to ambulate some in the hallways today Less dizziness, less loss of balance No headache, neurologic deficits, chest pain, palpitations No other symptoms Review of Systems Review of Systems: all noted and negative except for above Physical Exam Physical Exam: General- oriented x 3, not in distress, speaks in sentences with no effort or accessory muscle use Eyes- anicteric Neck- no JVD Lungs- clear breath sounds bilaterally, No crackles or wheezing Heart- normal rate, regular rhythm; no murmurs Abdomen- normal bowel sounds, nondistended, soft, No tenderness Extremities- no pretibial edema, no calf tenderness Neuro- alert, oriented x 3; no gross focal neurologic deficits Skin- warm & dry Results & Data Results & Data Vital Signs (Past 12 Hours) Vital Signs Temp Pulse Pulse Resp BP Pulse Ox O2 Del Method 05/27/24 15:12 36.6 C 65 18 109/53 L 98 Room Air 05/27/24 13:49 72 05/27/24 12:02 36.7 C 62 18 106/53 L 97 Room Air 05/27/24 07:17 36.5 C 65 18 95/45 L 97 Room Air 05/27/24 07:11 64 all noted and reviewed including below
--- NOTE | 2024-05-28 12:57 | Hospitalist Progress Note ---
Date of Service May 28, 2024 Assessment & Plan (1) Near syncope: (2) Aortic insufficiency: (3) Hypertension: (4) Recurrent UTI: (5) Pelvicaliectasis: Plan Per Previous hospitalist notes with addendum: Ms. Powell is an 88 year old woman with past medical history remarkable for spasmodic dysphonia, pelvicaliectasis, essential tremor, severe aortic insufficiency, HTN, gait abnormality presented to [facility] due to dizziness and near syncope. Patient admitted for evaluation of dizziness. #Near syncope #Aortic Insufficiency per records #Ambulatory dysfunction #Hx of gait abnormality, use of assistive device at baseline Progressive dizziness, near syncope with mechanical fall 6 weeks ago No cardiac records on file outside of [facility] 11/2023 with documentation of aortic insufficiency CT head reviewed, without intracranial hemorrhage -Admit med/tele to monitor for arrhythmia -Permissive HTN, allow for pressure in 140-160s -Hold home amlodipine and propranolol for now -Carotid dopplers: mild arthrosclerotic disease -Orthostatic vital signs negative -PT/OT pending -Fall precautions -Continue ASA -UA without bacteria and patient with clinical improvement, CTM -ECHO to eval severity of aortic insufficiency, pending 05/25 Positive orthostatic hypotension Amlodipine and propranolol on hold Given IV fluids Carotid studies: No significant stenosis 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 so 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 Echo: EF 60-65%, gr 1 diastolic dysfunction, moderate aortic regurgitation Compression stockings ordered Continue to monitor orthostatic vital signs PT OT evaluation May need acute rehab or fdc facility 05/26 orthostatic hypotension resolving with current management- Amlodipine, Propranolol on hold still has some dizziness and unsteadiness with walking continue to monitor closely 05/27 Blood pressure continues to improve PT OT in progress Awaiting to transition to fdc facility 05/28 BP stable overall awaiting acceptance to subacute rehab #Anemia hgb likely near baseline, noted to be 13 on admission and now 11--no signs of bleeding -b12 and folate wnl, iron studies added on - Hg stable at 11 #hypercalcemia *resolving hold home PO supplement possible iso dehydration s/p IVF Resolved #Essential tremor Hold propranolol for now given above No tremors observed #HTN hold home amlodipine and propranolol BP on the lower side even off above blood pressure medications Monitor closely #Pelvicaliectasis #Hx of recurrent uti - follows urology UA as above No signs of overt infection, will hold abx #Severe protein calorie malnutrition BMI 14.4 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, 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 TID diet vegetarian dvt heparin q12 Disposition Awaiting to transition to fdc facility Admission and Anticipated Discharge Date Admission Date: May 23, 2024 Subjective ff up for dizziness, etc seen resting in bedside chair, comfortable feels ok overall minimal intermittent dizziness when ambulating no other new symptoms Review of Systems Review of Systems: all noted and negative except for above Physical Exam Physical Exam: General- oriented x 3, not in distress, speaks in sentences with no effort or accessory muscle use Eyes- anicteric Neck- no JVD Lungs- clear breath sounds bilaterally, no rales/wheezes Heart- normal rate, regular rhythm; no murmurs Abdomen- normal bowel sounds, nondistended, soft, no tenderness Extremities- no pretibial edema, no calf tenderness Neuro- alert, oriented x 3; no gross focal neurologic deficits Skin- warm & dry Results & Data Results & Data Vital Signs (Past 12 Hours) Vital Signs Temp Pulse Pulse Resp BP Pulse Ox O2 Del Method 05/28/24 12:04 36.3 C L 64 16 127/64 98 Room Air 05/28/24 08:01 36.4 C L 61 16 128/66 98 Room Air 05/28/24 07:21 63 05/28/24 04:32 36.4 C L 61 18 138/73 97 Room Air all noted and reviewed including below
[2024-05-28] MEDS: ONDANSETRON INJ 2 MG/ML 2 ML VIAL IV PRN (17:32)
--- NOTE | 2024-05-29 17:41 | Hospitalist Progress Note ---
Date of Service May 29, 2024 Assessment & Plan (1) Near syncope: (2) Aortic insufficiency: (3) Hypertension: (4) Recurrent UTI: (5) Pelvicaliectasis: Plan Per Previous hospitalist notes with addendum: Ms. Powell is an 88 year old woman with past medical history remarkable for spasmodic dysphonia, pelvicaliectasis, essential tremor, severe aortic insufficiency, HTN, gait abnormality presented to [facility] ED due to dizziness and near syncope. Patient admitted for evaluation of dizziness. #Near syncope #Aortic Insufficiency per records #Ambulatory dysfunction #Hx of gait abnormality, use of assistive device at baseline Progressive dizziness, near syncope with mechanical fall 6 weeks ago No cardiac records on file outside of [facility] 11/2023 with documentation of aortic insufficiency CT head reviewed, without intracranial hemorrhage -Admit med/tele to monitor for arrhythmia -Permissive HTN, allow for pressure in 140-160s -Hold home amlodipine and propranolol for now -Carotid dopplers: mild arthrosclerotic disease -Orthostatic vital signs negative -PT/OT pending -Fall precautions -Continue ASA -UA without bacteria and patient with clinical improvement, CTM -ECHO to eval severity of aortic insufficiency, pending 05/25 Positive orthostatic hypotension Amlodipine and propranolol on hold Given IV fluids Carotid studies: No significant stenosis compliance monitor: No arrhythmias so far Echo: EF 60-65%, gr 1 diastolic dysfunction, moderate aortic regurgitation Compression stockings ordered Continue to monitor orthostatic vital signs PT OT evaluation May need acute rehab or residential facility 05/26 orthostatic hypotension resolving with current management- Amlodipine, Propranolol on hold still has some dizziness and unsteadiness with walking continue to monitor closely 05/27 Blood pressure continues to improve PT OT in progress Awaiting to transition to residential facility 05/28 BP stable overall awaiting acceptance to subacute rehab 05/29 BP remaining stable Clinically doing well Awaiting acceptance to subacute rehab #Anemia hgb likely near baseline, noted to be 13 on admission and now 11--no signs of bleeding -b12 and folate wnl, iron studies added on - Hg stable at 11 #hypercalcemia *resolving hold home PO supplement possible iso dehydration s/p IVF Resolved #Essential tremor Hold propranolol for now given above No tremors observed #HTN hold home amlodipine and propranolol BP on the lower side even off above blood pressure medications Monitor closely #Pelvicaliectasis #Hx of recurrent uti - follows urology UA as above No signs of overt infection, will hold abx #Severe protein calorie malnutrition BMI 14.4 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 Seen resting in bed side chair, comfortable, not in distress States she feels fine overall No dizziness, chest pain, shortness of breath No nausea, abdominal pain No other new symptoms Review of Systems Review of Systems: all noted and negative except for above Physical Exam Physical Exam: General- oriented x 3, not in distress, speaks in sentences with no effort or accessory muscle use Eyes- anicteric Neck- no JVD Lungs- clear breath sounds bilaterally, no rales/wheezes Heart- normal rate, regular rhythm; no murmurs Abdomen- normal bowel sounds, nondistended, soft, nontender Extremities- no pretibial edema, no calf tenderness Neuro- alert, oriented x 3; no gross focal neurologic deficits Skin- warm & dry Results & Data Results & Data Vital Signs (Past 12 Hours) Vital Signs Temp Pulse Pulse Resp BP Pulse Ox O2 Del Method 05/29/24 16:41 36.6 C 65 17 152/52 H 97 Room Air 05/29/24 11:20 36.6 C 63 16 110/53 L 98 Room Air 05/29/24 10:30 61 05/29/24 08:17 36.3 C L 61 17 119/61 96 Room Air all noted and reviewed including below
--- NOTE | 2024-05-30 16:27 | Hospitalist Progress Note ---
Date of Service May 30, 2024 Assessment & Plan (1) Near syncope: (2) Aortic insufficiency: (3) Hypertension: (4) Recurrent UTI: (5) Pelvicaliectasis: Plan Per Previous hospitalist notes with addendum: Ms. Powell is an 88 year old woman with past medical history remarkable for spasmodic dysphonia, pelvicaliectasis, essential tremor, severe aortic insufficiency, HTN, gait abnormality presented to [facility] ED due to dizziness and near syncope. Patient admitted for evaluation of dizziness. #Near syncope #Aortic Insufficiency per records #Ambulatory dysfunction #Hx of gait abnormality, use of assistive device at baseline Progressive dizziness, near syncope with mechanical fall 6 weeks ago No cardiac records on file outside of [facility] 11/2023 with documentation of aortic insufficiency CT head reviewed, without intracranial hemorrhage -Admit med/tele to monitor for arrhythmia -Permissive HTN, allow for pressure in 140-160s -Hold home amlodipine and propranolol for now -Carotid dopplers: mild arthrosclerotic disease -Orthostatic vital signs negative -PT/OT pending -Fall precautions -Continue ASA -UA without bacteria and patient with clinical improvement, CTM -ECHO to eval severity of aortic insufficiency, pending 05/25 Positive orthostatic hypotension Amlodipine and propranolol on hold Given IV fluids Carotid studies: No significant stenosis engine monitor: No arrhythmias so far Echo: EF 60-65%, gr 1 diastolic dysfunction, moderate aortic regurgitation Compression stockings ordered Continue to monitor orthostatic vital signs PT OT evaluation May need acute rehab or correction facility 05/26 orthostatic hypotension resolving with current management- Amlodipine, Propranolol on hold still has some dizziness and unsteadiness with walking continue to monitor closely 05/27 Blood pressure continues to improve PT OT in progress Awaiting to transition to correction facility 05/28 BP stable overall awaiting acceptance to subacute rehab 05/29 BP remaining stable Clinically doing well Awaiting acceptance to subacute rehab 05/30 stable anticipate to d/c to SNF tomorrow #Anemia hgb likely near baseline, noted to be 13 on admission and now 11--no signs of bleeding -b12 and folate wnl, iron studies added on - Hg stable at 11 #hypercalcemia *resolving hold home PO supplement possible iso dehydration s/p IVF Resolved #Essential tremor Hold propranolol for now given above No tremors observed #HTN hold home amlodipine and propranolol BP on the lower side even off above blood pressure medications Monitor closely #Pelvicaliectasis #Hx of recurrent uti - follows urology UA as above No signs of overt infection, will hold abx #Severe protein calorie malnutrition BMI 14.4 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, 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 TID diet vegetarian dvt proph heparin q12 Disposition transition to correction facility tomorrow Admission and Anticipated Discharge Date Admission Date: May 23, 2024 Subjective ff up for dizziness etc seen resting in chair, comfortable states she feels overall denies dizziness, symptoms Review of Systems Review of Systems: all noted and negative except for above Physical Exam Physical Exam: General- oriented x 3, not in distress, speaks in sentences with no effort or accessory muscle use Eyes- anicteric Neck- no JVD Lungs- clear breath sounds bilaterally, no crackles/wheezing Heart- normal rate, regular rhythm; no murmurs Abdomen- normal bowel sounds, nondistended, soft, nontender Extremities- no pretibial edema, no calf tenderness Neuro- alert, oriented x 3; no gross focal neurologic deficits Skin- warm & dry Results & Data Results & Data Vital Signs (Past 12 Hours) Vital Signs Temp Pulse Pulse Resp BP Pulse Ox O2 Del Method 05/30/24 16:06 75 05/30/24 15:39 36.3 C L 65 17 147/64 H 97 Room Air 05/30/24 11:44 36.3 C L 65 17 139/62 98 Room Air 05/30/24 08:07 Room Air 05/30/24 07:47 36.4 C L 61 17 135/65 98 Room Air 05/30/24 07:23 62 all noted and reviewed including below
[2024-05-30 19:46] VITALS: RESP 18
[2024-05-31 07:48] VITALS: PULSE 64
[2024-05-31 07:55] VITALS: BP 150/67; TEMP 97.3; O2SAT 99
--- NOTE | 2024-05-31 09:07 | Discharge Summary ---
Discharge Summary Date of Service May 31, 2024 Principal Dx & Hospital Course #1 = Principal Diagnosis (1) Near syncope: (2) Aortic insufficiency: (3) Hypertension: (4) Recurrent UTI: (5) Pelvicaliectasis: Plan Per Previous hospitalist notes with addendum: Ms. Powell is an 88 year old woman with past medical history remarkable for spasmodic dysphonia, pelvicaliectasis, essential tremor, severe aortic insufficiency, HTN, gait abnormality presented to [facility] due to dizziness and near syncope. Patient admitted for evaluation of dizziness. 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 Echo: EF 60-65%, gr 1 diastolic dysfunction, moderate aortic regurgitation Compression stockings Clinically doing well transition to Subacute rehab Monitor blood pressure Always make sure patient is well-hydrated #Anemia hgb likely near baseline, noted to be 13 on admission and now 11--no signs of bleeding -b12 and folate wnl, iron studies: within normal range - Hg stable at 11 #hypercalcemia hold home PO supplement possible iso dehydration s/p IVF Resolved monitor Calcium and Vit D as outpatient #Essential tremor Hold propranolol for now given above No tremors observed #HTN hold home amlodipine and propranolol #Pelvicaliectasis #Hx of recurrent uti - follows urology UA as above No signs of overt infection, will hold abx #Severe protein calorie malnutrition BMI 14.4 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 Powell is an 88 year old woman with past medical history remarkable for spasmodic dysphonia, pelvicaliectasis, essential tremor, severe aortic insufficency, HTN, gait abnormality presented to [facility] ED due to dizziness and near syncope. Patient reports progressive dizziness and near syncope. She states she was dizzy around the time of a fall that resulted in a skull fracture about 6 weeks ago with admission in [place]. Patient states she has only worsened--the dizziness is exacerbated with standing and position changes. She ambulates at baseline with cane/walker (depending if in home or out). Discussed evaluation by neurology in 2020 for gait abnormality, she states the imbalance she feels chronically is different than what she is experiencing. When asked about cardiac status, she states she was directed by vice president biostatistics to not take any blood pressure medication when blood pressure is less than 140. She does endorse intermittent chest pains, that come on spontaneously marked by substernal pressure then resolve in 5-10minutes. She denies any active chest pain, nausea, vomiting. She endorses chronic urinary frequency, but no dysuria at this time. She reports normal bowel movements. She denies any vision changes or focal neuro deficits. Review of recent med clearance for cystoscopy scanned on 12/15/2023 has hand written note from [employer] which states "continue ASA. severe aortic insufficiency, medically managed." In the ED, vitals were notable for BP of 120-130s, HRs in 60s, and O2 sat of high 90s on room air. Labs with Ca 10, suggestive perhaps of dehydration Imaging revealed no sign of acute intracranial abnormality EKG ordered ED interventions: 250cc bolus Patient to be admitted to [facility] for further evaluation and management of dizziness Admission Exam Per Admitting Provider GENERAL APPEARANCE: AxOx4, thin cachectic female pleasant HEENT: NC, AT. EOMI, clear conjunctiva, oropharynx clear. dry mucous membranes NECK: No stiffness or restricted ROM. HEART: Normal rate and regular rhythm, +HARRY LUNGS: CTAB, moving air well. No crackles or wheezes are heard. ABDOMEN: Soft, nontender, nondistended with good bowel sounds heard. EXTREMITIES: Without cyanosis, clubbing or edema. NEUROLOGICAL: Grossly nonfocal. Alert and oriented, moving all 4 extremities. CN not formally tested but appear grossly intact. Observed to ambulate with normal gait. Skin: Warm and dry without any rash. Discharge Exam General- oriented x 3, not in distress, speaks in sentences with no effort or accessory muscle use Eyes- anicteric Neck- no JVD Lungs- clear breath sounds bilaterally, no crackles/wheezing Heart- normal rate, regular rhythm; no murmurs Abdomen- normal bowel sounds, nondistended, soft, nontender Extremities- no pretibial edema, no calf tenderness Neuro- alert, oriented x 3; no gross focal neurologic deficits Skin- warm & dry Updated Medication List Medication Instructions Recorded Confirmed Type amlodipine 2.5 mg tablet 2.5 mg PO QAM 04/07/23 05/23/24 History aspirin 81 mg chewable tablet 81 mg PO QPM 04/07/23 05/23/24 History multivit with min-folic 1 tab PO QAM 04/07/23 05/23/24 History acid-lutein 400 mcg-250 mcg chewable tablet (Centrum Silver) potassium 99 mg tablet 99 mg PO QAM 04/07/23 05/23/24 History propranolol 10 mg tablet 10 mg PO BID 04/07/23 05/23/24 History calcium carbonate 600 mg-vitamin 1 tab PO QAM 12/15/23 05/23/24 History D3 5 mcg (200 unit) tablet vit C 250 mg-E 90 mg-zinc 40 1 tab PO BID 12/15/23 05/23/24 History mg-copper 1 [id number] chew tablet (PreserVision AREDS-2) Hospital Stay Data Consultations 05/23/24 13:33 ED Decision to Admit Stat Diagnostic Imagining Performed Laboratory Results WBC 6.23 K/ul (4.8-10.8) 05/25/24 06:28 RBC 3.60 M/uL (4.20-5.40) L 05/25/24 06:28 Hgb 11.0 g/dl (12.0-16.0) L 05/25/24 06:28 Hct 34.1 % (37.0-47.0) L 05/25/24 06:28 MCV 94.7 fL (80.0-100.0) 05/25/24 06:28 MCH 30.6 pg (25.0-34.0) 05/25/24 06:28 MCHC 32.3 g/dL (32.0-36.0) 05/25/24 06:28 RDW Std Deviation 45.9 fL (36.4-46.3) 05/25/24 06: RDW Coeff of David 13.2 % (11.5-14.5) 05/25/24 06:28 Plt Count 174 K/uL (130-400) 05/25/24 06:28 MPV 10.7 fL (9.4-12.4) 05/25/24 06:28 Immature Gran % (Auto) 0.1 % 05/23/24 11:44 Neut % (Auto) 78.8 % 05/23/24 11:44 Lymph % (Auto) 12.4 % 05/23/24 11:44 [place] % (Auto) 7.7 % 05/23/24 11:44 Eos % (Auto) 0.6 % 05/23/24 11:44 Baso % (Auto) 0.4 % 05/23/24 11:44 Neut # (Auto) 5.54 K/uL (1.40-6.50) 05/23/24 11:44 Lymph # (Auto) 0.87 K/uL (1.20-3.40) L 05/23/24 11:44 [place] # (Auto) 0.54 K/uL (0.11-0.59) 05/23/24 11:44 Eos # (Auto) 0.04 K/uL (0.00-0.50) 05/23/24 11:44 Baso # (Auto) 0.03 K/uL (0.00-0.20) 05/23/24 11:44 Immature Gran # (Auto) 0.01 K/uL (0.01-0.20) 05/23/24 11:44 PT 10.3 Seconds (9.0-12.0) 05/23/24 11:44 INR 0.9 (0.9-1.1) 05/23/24 11:44 APTT 26 Seconds (21-31) 05/23/24 11:44 PTT Ratio 1.0 05/23/24 11:44 Sodium 141 mmol/L (136-145) 05/25/24 06:28 Potassium 4.1 mmol/L (3.5-5.1) 05/25/24 06:28 Chloride 106 mmol/L (98-107) 05/25/24 06:28 Carbon Dioxide 32 mmol/L (21-32) 05/25/24 06:28 Anion Gap 3 (3-11) 05/25/24 06:28 BUN 13 mg/dl (6-23) 05/25/24 06:28 Creatinine 0.58 mg/dl (0.6-1.2) L 05/25/24 06:28 Est Cr Clr Drug Dosing 37.4 ml/min 05/25/24 06:28 Est GFR ( Amer) 95.4 ml/min 05/25/24 06:28 Est GFR (Non-Af Amer) 82.3 ml/min 05/25/24 06:28 BUN/Creatinine Ratio 22.4 (10-20) H 05/25/24 06:28 Glucose 84 mg/dl (70-99(Fasting)) 05/25/24 06:28 Calcium 9.4 mg/dl (8.6-10.3) 05/25/24 06:28 Phosphorus 3.7 mg/dl (2.5-4.9) 05/25/24 06:28 Magnesium 2.0 mg/dl (1.7-2.4) 05/25/24 06:28 Iron 82 mcg/dl (35-150) 05/24/24 07:29 TIBC 244 mcg/dl (250-450) L 05/24/24 07:29 Unsaturated IBC 162 mcg/dl (155-355) 05/24/24 07:29 Transferrin % Sat 34 % (15-50) 05/24/24 07:29 Ferritin 50.1 ng/ml (8-388) 05/24/24 07:29 Total Bilirubin 0.7 mg/dl (0.2-1.0) 05/24/24 07:29 AST 19 U/L (13-39) 05/24/24 07:29 ALT 9 U/L (7-52) 05/24/24 07:29 Alkaline Phosphatase 40 U/L (34-104) 05/24/24 07:29 Troponin I High Sens 9.1 pg/ml (0-14) 05/23/24 11:44 Total Protein 5.8 gm/dl (6.0-8.3) L D 05/24/24 07:29 Albumin 3.7 gm/dl (3.4-5.0) 05/24/24 07:29 Globulin 2.1 gm/dl (2.5-4.0) L 05/24/24 07:29 Albumin/Globulin Ratio 1.8 (0.9-2) 05/24/24 07:29 Vitamin B12 481 pg/ml (180-914) 05/24/24 07:29 Folate > 22.30 ng/ml (>5.38) 05/24/24 07:29 TSH 4.229 uIu/ml (0.300-4.500) 05/23/24 11:44 Urine Color Yellow 05/23/24 14:19 Urine Appearance Cloudy (Clear) A 05/23/24 14:19 Urine pH 6.5 (4.5-7.5) 05/23/24 14:19 Ur Specific [place] 1.019 (1.000-1.030) 05/23/24 14:19 Urine Protein Trace (Negative) H 05/23/24 14:19 Urine Glucose (UA) Negative (Negative) 05/23/24 14:19 Urine Ketones Negative (Negative) 05/23/24 14:19 Urine Blood Negative (Negative) 05/23/24 14:19 Urine Nitrite Negative (Negative) 05/23/24 14:19 Urine Bilirubin Negative (Negative) 05/23/24 14:19 Urine Urobilinogen Negative (Negative) 05/23/24 14:19 Ur Leukocyte Esterase 2+ (Negative) H 05/23/24 14:19 Urine WBC (Auto) 21-50 /hpf (0-5) H 05/23/24 14:19 Urine RBC (Auto) 0-2 /hpf (0-2) 05/23/24 14:19 U Hyaline Cast (Auto) 3-5 /lpf (0-2) H 05/23/24 14:19 U Epithel Cells (Auto) 0-2 /hpf (0-2) 05/23/24 14:19 Urine Bacteria (Auto) None Seen (None Seen) 05/23/24 14:19 Impressions Chest X-Ray 05/23/24 12:05 XR chest 1V portable HISTORY: chest pain COMPARISON: Chest CT 02/12/2023. FINDINGS: No pneumothorax. No pleural effusions. The cardiac silhouette is top normal in size. A left lower lobe calcified granuloma is again noted. No acute fractures. No new focal lung consolidations to suggest a pneumonia. No evidence for pulmonary edema. There are few linear scarlike densities within the periphery the right upper lobe. There is an 18 mm focal irregular density within the left lung apex. This is better appreciated on the prior chest CT. IMPRESSION: 1. No acute process within the chest. 2. An 18 mm focal irregular density within the left lung apex which is better appreciated on the prior chest CT. This could represent an area of scarring or a developing pulmonary lesion. Therefore, follow-up nonemergent chest CT in 6 months is recommended to evaluate for stability. ACT 112: Positive. There are findings on this exam that require communication between the performing entity and the patient following Patient Test Result Information Act ([place] Act 112) guidelines. Electronically signed by: Krishna Boyce M.D. 05/23/2024 12:[address] 05/23/24 12:[address] DOSE: 547.75 mGy.cm HISTORY: syncope TECHNIQUE: Multiaxial CT images of the head were performed without the use of intravenous contrast. Automated exposure control was utilized for this study. A dose lowering technique was utilized adhering to the principles of ALARA. Comparison: None. Findings: The paranasal sinuses and mastoid air cells are clear. The calvarium and skull base are intact. There is no mass, hematoma, midline shift, acute infarct. White matter hypodensity is nonspecific but suggestive of microvascular ischemic change. The ventricles and sulci demonstrate mild age-related involutional changes. Impression: No acute intracranial abnormality. ACT 112: Negative or not required by law. Electronically signed by: Krishna Boyce M.D. 05/23/2024 12:49 PM Carotid Doppler Study 05/23/24 14:12 BILATERAL CAROTID DOPPLER STUDY HISTORY: dizziness/presyncope COMPARISON: None. TECHNIQUE: Real-time, grayscale, and color Doppler sonography of the carotid arteries was performed. Imaging reviewed in the transverse and longitudinal planes. All measurements were calculated based on NASCET criteria. FINDINGS: Antegrade flow is seen in the bilateral vertebral arteries. Mild to moderate calcified plaque within the bilateral carotid bifurcations.. The peak systolic velocity within the right ICA is 64 cm/s. The right systolic ratio is 1.0. The peak systolic velocity within the left ICA is 75 cm/s. The left systolic ratio is 1.2. IMPRESSION: No hemodynamically significant stenosis seen within the carotid arteries. ACT 112: Negative or not required by law. Electronically signed by: Krishna Boyce M.D. 05/23/2024 4:24 PM 05/23/24 12:05 CT head/brain wo con Stat 05/23/24 14:12 Carotid duplex [US carotid doppler BI] Routine Pending Results Patient Have Any Pending Studies at Discharge: No Discharge Instructions Given to Patient (Per Discharging Provider) Please refer to accompanying hospital discharge summary for details. Monitor blood pressure. Always make sure patient is well-hydrated. Total Time Total Time Spent Total Time Spent (In Minutes): 35 minutes
== END 2024-05-31 10:50 | DRG 312 ==
LOC: ED 11:26 → 2N 14:12 → SUATTDRO 14:12 → 2N 18:51

== ENCOUNTER 2024-07-01 10:29 | Inpatient (IN) ==
--- NOTE | 2024-07-01 10:44 | Emergency Department Note ---
Impression & Plan Dizziness, Near syncope, Aortic insufficiency ED Provider Note NAME: CRIS ALEJANDRE AGE: 88 SEX: F : 1935 ARRIVES VIA: Walk-In INFORMANT: Patient ED PROVIDER(S): Donte Lima MD CHIEF COMPLAINT: Dizziness PLAN: Disposition: Admit MEDICAL DECISION MAKING: The patient is a pleasant 88-year-old woman with a past medical history of aortic insufficiency, hypertension, arthritis who presents to the emergency department via walk-in, accompanied by family for evaluation of dizziness and imbalance that she experienced this morning at 3 AM when she woke up to go to the bathroom to urinate. She reports she got up from her bed and felt as though she was leaning to the left cannot keep her balance. She reports she lowered self to the ground and did not fall or hit her head but crawled to the bathroom where she was able to urinate and then crawled back to her bedroom where she leaned against the bed and waited to the morning to call family for assistance. Patient's last known well was at 1030 when she went to bed. Patient reports that she feels as though her left leg is weak. Family reports that the patient was admitted to [place] in January of this year after having a fall and suffering a skull fracture though with a were not aware of intracranial hemorrhage per their recollection. The patient has had a dull headache since that event. She further adds that she has had times where she loses her train of thought and does not feel that this occurred prior to that fall. She was admitted to this facility a month ago from 05/23-05/31 for similar near syncope where she was also treated for urinary tract infection and suspected to have component of orthostasis. Given the patient's last known well was at 10:30 PM stroke alert was not activated though her evaluation was expedited. On evaluation the patient is no distress, afebrile with blood pressure 150s/60s and vital signs otherwise stable. She appears clinically dry. She has generalized weakness without focal extremity motor or sensory deficits. She has 4/5 strength and SILT x 4 extremities. There is no drift. Intact [id number]. CNII-XII grossly intact. Speech is fluent. EKG without overt acute ischemia. CXR negative for acute cardiopulmonary process per my personal preliminary review/interpretation. WBC, H/H and platelets within normal limits. Chemistry without metabolic acidosis. BUNs/creatinine is 25, consistent with patient's clinical dry appearance. LFTs are unremarkable. High styptic troponin 9.3, within normal limits. UA with WBCs but no bacteria and negative for nitrites. CT of the head and CT of the head and neck were performed and were negative for ICH, ischemia or severe narrowing occlusion of large vessels. Patient treated with IV fluid hydration and treatment for possible urinary tract infection initially with IV ceftriaxone. Case was [facility] with [facility]. Triage Nursing notes reviewed and agree them. Prior/external medical records reviewed Vital Signs: reviewed Differential diagnosis: Benign positional vertigo, dehydration, hypovolemia, anemia, tumor, infection, hypoglycemia, electrolyte abnormalities, cardiac sources, intracerebral event, toxicologic, neurologic, as well as other pathologies. ER treatment provided: See below. Diagnostics interpreted by me: ECG: Sinus bradycardia, 59 bpm, no ectopy, no overt ST ovation or depression, QTc 457, QRS 172. Cardiac Monitoring: An order for continuous cardiac monitoring was placed and demonstrated Sinus bradycardia, 59 bpm, no ectopy. Laboratory studies: See below Imaging studies: See below Consultation(s): Case was discussed with Jessica [facility]ada[facility]. HPI: The patient is a pleasant 88-year-old woman with a past medical history of aortic insufficiency, hypertension, arthritis who presents to the emergency department via walk-in, accompanied by family for evaluation of dizziness and imbalance that she experienced this morning at 3 AM when she woke up to go to the bathroom to urinate. She reports she got up from her bed and felt as though she was leaning to the left cannot keep her balance. She reports she lowered self to the ground and did not fall or hit her head but crawled to the bathroom where she was able to urinate and then crawled back to her bedroom where she leaned against the bed and waited to the morning to call family for assistance. Patient's last known well was at 1030 when she went to bed. Patient reports that she feels as though her left leg is weak. Family reports that the patient was admitted to [place] in January of this year after having a fall and suffering a skull fracture though with a were not aware of intracranial hemorrhage per their recollection. The patient has had a dull headache since that event. She further adds that she has had times where she loses her train of thought and does not feel that this occurred prior to that fall. She was admitted to this facility a month ago from 05/23-05/31 for similar near syncope where she was also treated for urinary tract infection and suspected to have component of orthostasis. ROS: See above HPI for pertinent positives & negatives. A total of 10 systems reviewed and were otherwise negative. VITALS:See Below PHYSICAL EXAMINATION: GENERAL: Awake, alert, fatigued-appearing, in no distress HENT: Normocephalic, atraumatic. Oropharynx with dry mucous membranes and otherwise unremarkable. EYES: Normal conjunctiva. Sclera non-icteric. NECK: Supple. No nuchal rigidity. FROM. No JVD. RESPIRATORY: Clear to auscultation. CARDIAC: Regular rate, normal rhythm. 3/6 murmur. Extremities warm and well perfused. Pulses equal. ABDOMEN: Soft, non-distended. No tenderness to palpation. No rebound or guarding. No masses. MUSCULOSKELETAL: Chest examination reveals no tenderness. The back is symmetrical on inspection without obvious abnormality. There is no CVA tenderness to palpation. No joint edema. LOWER EXTREMITIES: Calves are equal size bilaterally and non-tender. No edema. No discoloration. NEURO: Generalized weakness without focal extremity motor or sensory deficits. She has 4/5 strength and SILT x 4 extremities. There is no drift. Intact [id number]. CNII-XII grossly intact. Speech is fluent. SKIN: No rash or jaundice noted. Donte Lima MD Past Med/Surg History Problem List (Updated 07/03/24 @ 12:03 by Donte Lima MD) Esophageal stricture Esophageal dysphagia Orthostasis Protein calorie malnutrition Suspected UTI Vertigo due to brain injury Physical deconditioning History of recurrent UTI (urinary tract infection) Abnormal urinalysis Dizziness (Acute) Weakness (Acute) Chest pain (Acute) History of traumatic head injury (Acute) History of fall (Acute) History of aortic stenosis (Acute) Aortic insufficiency (Acute) Near syncope (Acute) Encounter for pre-operative examination Recurrent UTI No pertinent past medical history Nephrolithiasis Gastric peptic ulcer Hypertension Arthritis Pelvicaliectasis Medical History Incomplete bladder emptying History of anesthesia reaction slower to wake up with more recent procedures. 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 Trouble swallowing Occ with eating (improved with drinks in between) ; no issues taking pills Chronic /mild Multiple EGD with stretching - improvement in symptoms Essential tremor HTN (hypertension) if gets up too fast or moves to fast will get wobbly at times. Surgical History Hx of cardiac cath 2022 ? date...done due to Dr. Brown ordered/leaky aortic valve. No known further findings. [facility]. History of lithotripsy History of appendectomy History of colonoscopy History of esophagogastroduodenoscopy (EGD) hx esophagus stretched Hx of tonsillectomy Hx of cholecystectomy History of partial hysterectomy Family History Mother Hypertension Father Cancer Social History Smoking Status: Never smoker Do You Dip or Chew Tobacco: No; Hx Alcohol Use: No Hx Substance Use: No Preferred Language: Emirati Communication Ability: Effective Communication Ability Comment: phone call with hippa contact, daughterinlaw paige/pt preference per paige. Translation Director Required: No Beliefs That Will Affect Care: None marital status: / Current Living Situation: Alone current occupational status: retired Other Information That Helps Us Care for You: No Feels Safe at Home: Yes Assistive Devices: Walker Allergies Allergies Allergy/AdvReac Type Severity Reaction Status Date / Time Penicillins Allergy Unknown Hives Verified 04/27/24 10:58 Sulfa (Sulfonamide Allergy Unknown Hives Verified 04/27/24 10:58 Antibiotics) adhesive tape AdvReac Unknown skin Verified 04/27/24 10:58 irritation prefers paper tape Home Meds Home Medications Medication Instructions Recorded Confirmed vit C 250 mg-E 90 mg-zinc 40 1 tab PO BID 12/15/23 07/01/24 mg-copper 1 [id number] chew tablet (PreserVision AREDS-2) Results & Data (ED) Vital Signs Vital Signs - 24 hr 07/01/24 10:32 07/01/24 11:00 07/01/24 11:50 Temperature 36.0 C L Temperature Source Temporal Artery Scan Pulse Rate - Lying 64 Pulse Rate - Sitting 66 Pulse Rate - Standing 70 Pulse Rate 65 Pulse Rate [Apical] Respiratory Rate 22 Respiratory Effort / Characteristics Non-Labored Spontaneous Respiratory Depth Normal Respiratory Pattern Regular Blood Pressure - Lying 200/74 H Blood Pressure - Sitting 182/72 H Blood Pressure- Standing 175/74 H Blood Pressure 158/61 H Blood Pressure [Right Arm] Blood Pressure Mean 93 Blood Pressure Mean [Right Arm] Blood Pressure Position [Right Arm] Pulse Oximetry 100 95 Oxygen Delivery Method Room Air Room Air Sepsis Recent Fever Within 48 Hours No Sepsis New/Unexplained Change in Mental Status No Sepsis Action Taken by Nursing No Action Required 07/01/24 12:01 07/01/24 12:11 07/01/24 13:12 Temperature Temperature Source Pulse Rate - Lying Pulse Rate - Sitting Pulse Rate - Standing Pulse Rate 60 Pulse Rate [Apical] 60 69 Respiratory Rate 13 13 Respiratory Effort / Characteristics Non-Labored Spontaneous Non-Labored Respiratory Depth Normal Normal Respiratory Pattern Regular Blood Pressure - Lying Blood Pressure - Sitting Blood Pressure- Standing Blood Pressure Blood Pressure [Right Arm] 171/69 H 181/71 H Blood Pressure Mean Blood Pressure Mean [Right Arm] 103 107 Blood Pressure Position [Right Arm] Semi-fowlers Pulse Oximetry 98 95 Oxygen Delivery Method Room Air Room Air Sepsis Recent Fever Within 48 Hours Sepsis New/Unexplained Change in Mental Status Sepsis Action Taken by Nursing 07/01/24 15:30 07/01/24 16:02 Temperature Temperature Source Pulse Rate - Lying Pulse Rate - Sitting Pulse Rate - Standing Pulse Rate 69 Pulse Rate [Apical] 69 Respiratory Rate 18 18 Respiratory Effort / Characteristics Non-Labored Spontaneous Respiratory Depth Normal Respiratory Pattern Blood Pressure - Lying Blood Pressure - Sitting Blood Pressure- Standing Blood Pressure 173/76 H Blood Pressure [Right Arm] 173/76 H Blood Pressure Mean Blood Pressure Mean [Right Arm] 108 Blood Pressure Position [Right Arm] Pulse Oximetry 95 95 Oxygen Delivery Method Room Air Room Air Sepsis Recent Fever Within 48 Hours Sepsis New/Unexplained Change in Mental Status Sepsis Action Taken by Nursing Laboratory Data 07/02/24 07:18 07/02/24 07:18 Lab Results 07/01/24 07/01/24 Range/Units 11:53 12:30 WBC 6.26 (4.8-10.8) K/ul RBC 4.30 (4.20-5.40) M/uL Hgb 13.4 (12.0-16.0) g/dl Hct 41.1 (37.0-47.0) % MCV 95.6 (80.0-100.0) fL MCH 31.2 (25.0-34.0) pg MCHC 32.6 (32.0-36.0) g/dL RDW Std Deviation 48.5 H (36.4-46.3) fL RDW Coeff of David 13.7 (11.5-14.5) % Plt Count 183 (130-400) K/uL MPV 10.1 (9.4-12.4) fL Immature Gran % (Auto) 0.2 % Neut % (Auto) 72.2 % Lymph % (Auto) 18.5 % [place] % (Auto) 7.5 % Eos % (Auto) 1.1 % Baso % (Auto) 0.5 % Neut # (Auto) 4.52 (1.40-6.50) K/uL Lymph # (Auto) 1.16 L (1.20-3.40) K/uL [place] # (Auto) 0.47 (0.11-0.59) K/uL Eos # (Auto) 0.07 (0.00-0.50) K/uL Baso # (Auto) 0.03 (0.00-0.20) K/uL Immature Gran # (Auto) 0.01 (0.01-0.20) K/uL PT 10.5 (9.0-12.0) Seconds INR 1.0 (0.9-1.1) APTT 24 (21-31) Seconds PTT Ratio 0.9 Sodium 141 (136-145) mmol/L Potassium 4.3 (3.5-5.1) mmol/L Chloride 104 (98-107) mmol/L Carbon Dioxide 30 (21-32) mmol/L Anion Gap 7 (3-11) BUN 14 (6-23) mg/dl Creatinine 0.55 L (0.6-1.2) mg/dl Est Cr Clr Drug Dosing 36.2 ml/min eGFR 88.11 BUN/Creatinine Ratio 25.5 H (10-20) Glucose 91 (70-99(Fasting)) mg/dl Calcium 10.3 (8.6-10.3) mg/dl Phosphorus 3.7 (2.5-4.9) mg/dl Magnesium 2.1 (1.7-2.4) mg/dl Total Bilirubin 1.2 H (0.2-1.0) mg/dl AST 26 (13-39) U/L ALT 14 (7-52) U/L Alkaline Phosphatase 62 (34-104) U/L Troponin I High Sens 9.3 (0-14) pg/ml Total Protein 7.5 (6.0-8.3) gm/dl Albumin 4.5 (3.4-5.0) gm/dl Globulin 3.0 (2.5-4.0) gm/dl Albumin/Globulin Ratio 1.5 (0.9-2) Urine Color Yellow Urine Appearance Clear (Clear) Urine pH 7.5 (4.5-7.5) Ur Specific [place] 1.008 (1.000-1.030) Urine Protein Negative (Negative) Urine Glucose (UA) Negative (Negative) Urine Ketones Negative (Negative) Urine Blood Negative (Negative) Urine Nitrite Negative (Negative) Urine Bilirubin Negative (Negative) Urine Urobilinogen Negative (Negative) Ur Leukocyte Esterase 3+ H (Negative) Urine WBC (Auto) 21-50 H (0-5) /hpf Urine RBC (Auto) 0-2 (0-2) /hpf U Hyaline Cast (Auto) 0-2 (0-2) /lpf U Epithel Cells (Auto) 3-5 H (0-2) /hpf Urine Bacteria (Auto) None Seen (None Seen) Administered Medications Famotidine (Famotidine 20 Mg Tab) 20 mg PO BID [facility] Stop: 08/02/24 08:59 Last Admin: 07/03/24 08:41 Dose: 20 mg Documented By: DAYANNA Heparin Sodium (Porcine) (Heparin Sod 5,000 Unit/0.5 Ml Vial) 5,000 units SQ Q12 ABBE Stop: 07/31/24 20:59 Last Admin: 07/03/24 08:41 Dose: 5,000 units Documented By: Admin: 07/02/24 21:02 Dose: 5,000 units Documented By: Admin: 07/02/24 08:18 Dose: 5,000 units Documented By: Admin: 07/01/24 20:47 Dose: 5,000 units Documented By: SERENITY Discontinued Medications Sodium Chloride (Nss) 500 mls @ 999 mls/hr IV .Q31M ONE Stop: 07/01/24 11:25 Last Infusion: 07/01/24 12:51 Dose: Infused Documented By: Admin: 07/01/24 12:03 Dose: 999 mls/hr Documented By: ANNE Ceftriaxone Sodium (Rocephin) 2,000 mg in 50 mls @ 100 mls/hr IV NOW STA Stop: 07/01/24 14:13 Last Infusion: 07/01/24 15:38 Dose: Infused Documented By: Admin: 07/01/24 15:06 Dose: 100 mls/hr Documented By: ANNE Ioversol (Optiray 320 125ml) 120 ml IV ONCE ONE Stop: 07/01/24 12:49 Last Admin: 07/01/24 12:48 Dose: 120 ml Documented By: AMANDA Losartan Potassium (Losartan Potassium 25 Mg Tab) 25 mg PO QAM [facility] Stop: 07/31/24 19:14 Last Admin: 07/02/24 08:19 Dose: 25 mg Documented By: Admin: 07/01/24 20:47 Dose: 25 mg Documented By: SERENITY Meclizine HCl (Meclizine 12.5 Mg Tab) 12.5 mg PO TID [facility] Stop: 08/01/24 13:59 Last Admin: 07/03/24 08:40 Dose: 12.5 mg Documented By: Admin: 07/02/24 21:02 Dose: 12.5 mg Documented By: Admin: 07/02/24 13:38 Dose: 12.5 mg Documented By: DAYANNA Imaging Data Radiologist's Impression: Chest X-Ray 07/01/24 10:42 SINGLE VIEW CHEST CLINICAL HISTORY: Neurological deficit. Stroke like symptoms. FINDINGS: An AP, portable, upright chest radiograph is compared to study dated 05/23/2024. Correlation is made with chest CT dated 02/12/2023. The examination is degraded by portable technique and patient rotation. The heart is mildly enlarged noting atherosclerotic calcification of the thoracic aorta. The pulmonary vasculature is noncongested. Pleural parenchymal scarring is again seen at the apices. Chronic interstitial thickening similar to previous. Foci of parenchymal scarring are seen throughout both lungs. A calcified granuloma is seen in the left lower lung. No airspace consolidation, large pleural effusion, or pneumothorax is seen. The skeletal structures are osteopenic. The bony thorax is grossly intact. IMPRESSION: No acute cardiopulmonary abnormality is identified. ACT 112: Negative or not required by law. Electronically signed by: Marcelino Cruz M.D. 07/01/2024 11:[address] 07/01/24 10:42 CT SCAN OF THE BRAIN WITHOUT IV CONTRAST CLINICAL HISTORY: Neurologic deficit. Stroke like symptoms. COMPARISON STUDY: CT of the brain dated 05/23/2024. TECHNIQUE: Unenhanced axial CT scan of the brain is performed from the vertex to the skull base. A dose lowering technique was utilized adhering to the principles of ALARA. CT DOSE: 547.75 mGy.cm FINDINGS: Brain parenchyma: There is age-related involutional change noting moderate subcortical and periventricular microangiopathic disease. There is no hemorrhage, mass effect, or evidence of acute territorial ischemia by CT criteria. Mineralization is noted in the basal ganglia. Pulido-white matter differentiation is preserved. No extra-axial fluid collection is seen. Ventricles, sulci, cisterns: Prominent secondary to involutional change. Intracranial vasculature: There is atherosclerotic calcification of the cavernous carotid and vertebral arteries.. Calvarium: Unremarkable. Sinuses and mastoids: The visualized paranasal sinuses are clear. The mastoid air cells are well pneumatized. Orbits: The bony orbits are grossly intact. There are bilateral ocular lens implants. IMPRESSION: There is no hemorrhage, mass effect, or evidence of acute territorial ischemia by CT criteria. ACT 112: Negative or not required by law. Electronically signed by: Marcelino Cruz M.D. 07/01/2024 11:34 AM Head CTA 07/01/24 10:42 CTA ANGIOGRAPHY OF THE HEAD CLINICAL HISTORY: neuro deficit, acute stroke suspected COMPARISON STUDY: Head CT May 23, 2024. TECHNIQUE: Helical axial images of the head were obtained following uneventful intravenous administration of 120 cc of Optiray. Sagittal and coronal reconstructions were viewed as well as maximal intensity projections on an independent 3-D workstation. Automated exposure control was utilized for the study. A dose lowering technique was utilized adhering to the principles of ALARA. CT DOSE: 264.57 mGy.cm FINDINGS: No acute intracranial hemorrhage, midline shift or mass effect is present. Ventricular system is unremarkable. The basal cisterns are patent. There are no extra-axial collections. The bilateral M1, M2, A1 and A2 segments are patent. The left vertebral artery is dominant. The right vertebral artery ends in PICA. No large vessel occlusion is identified. There is no intracranial aneurysm. There is persistence of the right posterior cerebral artery. IMPRESSION: No large vessel occlusion. No intracranial aneurysm. ACT 112: Negative or not required by law. Electronically signed by: Jose A Harris M.D. 07/01/2024 1:58 PM Neck CTA 07/01/24 10:42 CT ANGIOGRAM OF THE NECK CLINICAL HISTORY: Neurological deficit. Stroke like symptoms. Dizziness. COMPARISON STUDY: No priors. TECHNIQUE: Following the IV administration of 120 of Optiray 320, CT angiogram of the neck was performed from the aortic arch to the skull base. Images are reviewed in the axial, sagittal, and coronal planes. 3-D MIPS images are created and assessed. IV contrast was administered without complication. All measurements were calculated based on NASCET criteria. A dose lowering technique was utilized adhering to the principles of ALARA. FINDINGS: Thoracic aorta: Visualized portions of the thoracic aorta are normal in caliber. The aortic arch demonstrates standard 3-vessel anatomy. Right carotid arterial system: The right common carotid artery is widely patent, as are the right internal and external carotid arteries. Calcified plaque is seen in the carotid bulb. Left carotid arterial system: The left common carotid artery is widely patent, as are the left internal and external carotid arteries. Calcified plaque is noted in the carotid bulb. Vertebral arteries: Widely patent bilaterally noting left-sided dominance. The right vertebral artery is diminutive and terminates as the PICA. Subclavian arteries: Widely patent bilaterally. Intracranial vasculature: The visualized intracranial vessels at the skull base are patent. There is origin of the right posterior cerebral artery. Jugular veins: Patent bilaterally. Brain parenchyma: The visualized brain parenchyma the skull base is within normal limits. Lung apices: Pleural parenchymal scarring is seen at the apices. The imaged upper lobe lung parenchyma is otherwise clear. Soft tissues: The visualized pharyngeal soft tissues are normal in appearance noting angiographic phase technique. The oropharyngeal airway appears widely patent. The salivary and thyroid glands are normal in appearance. No cervical lymphadenopathy is seen. Skeletal structures: The skeletal structures are osteopenic. The visualized calvarium at the skull base appears intact. The imaged cervical spine is maintained noting multilevel spondylosis. Sinuses and mastoids: The visualized paranasal sinuses are clear. The mastoid air cells are well-pneumatized. IMPRESSION: Unremarkable CT angiogram of the neck. ACT 112: Negative or not required by law. Electronically signed by: Marcelino Cruz M.D. 07/01/2024 1:16 PM Discharge Plan Visit Data Chief Complaint: Dizziness Stated Complaint: DIZZINESS, L LEG WEAKNESS ED Provider: Donte Lima Discharge Problem: Dizziness, Near syncope, Aortic insufficiency Patient Disposition: Admitted As Inpatient Discharge Instructions Interventions: ED Discharge Assessment Last Done: 07/01/24 16:02 Discharge Problem: Aortic insufficiency Qualifiers: Cardiac valve disease etiology: etiology unspecified Qualified Code(s): I35.1 - Nonrheumatic aortic (valve) insufficiency
--- NOTE | 2024-07-01 11:03 | XRay Report ---
SINGLE VIEW CHEST CLINICAL HISTORY: Neurological deficit. Stroke like symptoms. FINDINGS: An AP, portable, upright chest radiograph is compared to study dated 05/23/2024. Correlation is made with chest CT dated 02/12/2023. The examination is degraded by portable technique and patient rotation. The heart is mildly enlarged noting atherosclerotic calcification of the thoracic aorta. T he pulmonary vasculature is noncongested. Pleural parenchymal scarring is again seen at the apices. C hronic interstitial thickening similar to previous. Foci of parenchymal scarring are seen throughout both lungs. A calcified granuloma is seen in the left lower lung. No airspace consolidation, large pl eural effusion, or pneumothorax is seen. The skeletal structures are osteopenic. The bony thorax is g rossly intact. IMPRESSION: No acute cardiopulmonary abnormality is identified. ACT 112: Negative or not required by law. Electronically signed by: Marcelino Cruz M.D. 07/01/2024 11:02 AM
--- NOTE | 2024-07-01 11:35 | CT Scan Report ---
CT SCAN OF THE BRAIN WITHOUT IV CONTRAST CLINICAL HISTORY: Neurologic deficit. Stroke like symptoms. COMPARISON STUDY: CT of the brain dated 05/23/2024. TECHNIQUE: Unenhanced axial CT scan of the brain is performed from the vertex to the skull base. A do se lowering technique was utilized adhering to the principles of ALARA. CT DOSE: 547.75 mGy.cm FINDINGS: Brain parenchyma: There is age-related involutional change noting moderate subcortical and periventri cular microangiopathic disease. There is no hemorrhage, mass effect, or evidence of acute territorial ischemia by CT criteria. Mineralization is noted in the basal ganglia. Pulido-white matter differentia tion is preserved. No extra-axial fluid collection is seen. Ventricles, sulci, cisterns: Prominent secondary to involutional change. Intracranial vasculature: There is atherosclerotic calcification of the cavernous carotid and vertebr al arteries.. Calvarium: Unremarkable. Sinuses and mastoids: The visualized paranasal sinuses are clear. The mastoid air cells are well pneu matized. Orbits: The bony orbits are grossly intact. There are bilateral ocular lens implants. IMPRESSION: There is no hemorrhage, mass effect, or evidence of acute territorial ischemia by CT ryan brito. ACT 112: Negative or not required by law. Electronically signed by: Marcelino Cruz M.D. 07/01/2024 11:34 AM
[2024-07-01] MEDS: SODIUM CHLORIDE 0.9% 500 ML IV ONE (12:03)
[2024-07-01 12:07] LABS: Basophils # (auto) 0.03 K/uL (0.00-0.20); Basophils % (auto) 0.5 %; Eosinophils # (auto) 0.07 K/uL (0.00-0.50); Eosinophils % (auto) 1.1 %; Hematocrit (blood only) 41.1 % (37.0-47.0); Hemoglobin 13.4 g/dl (12.0-16.0); Immature Granulocytes # (auto) 0.01 K/uL (0.01-0.20); Immature Granulocytes % (auto) 0.2 %; Lymphocytes # (auto) 1.16 K/uL (1.20-3.40); Lymphocytes % (auto) 18.5 %; Mean Corpuscular Hemoglobin 31.2 pg (25.0-34.0); Mean Corpuscular Hgb Conc 32.6 g/dL (32.0-36.0); Mean Corpuscular Volume 95.6 fL (80.0-100.0); Mean Platelet Volume 10.1 fL (9.4-12.4); Monocytes # (auto) 0.47 K/uL (0.11-0.59); Monocytes % (auto) 7.5 %; Neutrophils # (auto) 4.52 K/uL (1.40-6.50); Neutrophils % (auto) 72.2 %; Platelet Count 183 K/uL (130-400); RDW Coefficient of Variation 13.7 % (11.5-14.5); RDW Standard Deviation 48.5 fL (36.4-46.3); White Blood Count 6.26 K/ul (4.8-10.8)
[2024-07-01 12:21] LABS: Partial Thromboplastin Ratio 0.9; Partial Thromboplastin Time 24 Seconds (21-31); Prothrombin Time 10.5 Seconds (9.0-12.0)
[2024-07-01 12:26] LABS: Albumin Level 4.5 gm/dl (3.4-5.0); Bilirubin,Total 1.2 mg/dl (0.2-1.0); Calcium 10.3 mg/dl (8.6-10.3); Magnesium 2.1 mg/dl (1.7-2.4); Potassium 4.3 mmol/L (3.5-5.1)
[2024-07-01 12:32] LABS: Albumin Globulin Ratio 1.5 (0.9-2); BUN Creatinine Ratio 25.5 (10-20); Creatinine Clr Calc Pharmacy 36.2 ml/min; Phosphorus 3.7 mg/dl (2.5-4.9); Total Protein 7.5 gm/dl (6.0-8.3)
[2024-07-01 12:36] LABS: Troponin I High Sensitivity 9.3 pg/ml (0-14)
[2024-07-01] MEDS: OPTIRAY 320 125ml IV ONE (12:48)
[2024-07-01 13:00] LABS: Appearance Urine Clear (Clear); Bacteria Urine Automated None Seen (None Seen); Bilirubin Urine Negative (Negative); Blood Urine Negative (Negative); Cast Urine Automated 0-2 /lpf (0-2); Color Urine Yellow; Glucose Urine UA Negative (Negative); Ketones Urine Negative (Negative); Leukocyte Esterase Urine 3+ (Negative); Nitrite Urine Negative (Negative); Protein Urine Negative (Negative); RBC Urine Automated 0-2 /hpf (0-2); Specific Gravity Urine 1.008 (1.000-1.030); Urobilinogen Urine Negative (Negative); WBC Urine Automated 21-50 /hpf (0-5); pH Urine 7.5 (4.5-7.5)
--- NOTE | 2024-07-01 13:18 | CT Scan Report ---
CT ANGIOGRAM OF THE NECK CLINICAL HISTORY: Neurological deficit. Stroke like symptoms. Dizziness. COMPARISON STUDY: No priors. TECHNIQUE: Following the IV administration of 120 of Optiray 320, CT angiogram of the neck was perfor med from the aortic arch to the skull base. Images are reviewed in the axial, sagittal, and coronal p lanes. 3-D MIPS images are created and assessed. IV contrast was administered without complication. A ll measurements were calculated based on NASCET criteria. A dose lowering technique was utilized adh ering to the principles of ALARA. FINDINGS: Thoracic aorta: Visualized portions of the thoracic aorta are normal in caliber. The aortic arch demo nstrates standard 3-vessel anatomy. Right carotid arterial system: The right common carotid artery is widely patent, as are the right int ernal and external carotid arteries. Calcified plaque is seen in the carotid bulb. Left carotid arterial system: The left common carotid artery is widely patent, as are the left finance intern al and external carotid arteries. Calcified plaque is noted in the carotid bulb. Vertebral arteries: Widely patent bilaterally noting left-sided dominance. The right vertebral artery is diminutive and terminates as the PICA. Subclavian arteries: Widely patent bilaterally. Intracranial vasculature: The visualized intracranial vessels at the skull base are patent. There is origin of the right posterior cerebral artery. Jugular veins: Patent bilaterally. Brain parenchyma: The visualized brain parenchyma the skull base is within normal limits. Lung apices: Pleural parenchymal scarring is seen at the apices. The imaged upper lobe lung parenchym a is otherwise clear. Soft tissues: The visualized pharyngeal soft tissues are normal in appearance noting angiographic pha se technique. The oropharyngeal airway appears widely patent. The salivary and thyroid glands are nor mal in appearance. No cervical lymphadenopathy is seen. Skeletal structures: The skeletal structures are osteopenic. The visualized calvarium at the skull ba se appears intact. The imaged cervical spine is maintained noting multilevel spondylosis. Sinuses and mastoids: The visualized paranasal sinuses are clear. The mastoid air cells are well-pneu matized. IMPRESSION: Unremarkable CT angiogram of the neck. ACT 112: Negative or not required by law. Electronically signed by: Marcelino Cruz M.D. 07/01/2024 1:16 PM
--- NOTE | 2024-07-01 13:55 | History & Physical Report ---
Date of Service July 01, 2024 Assessment & Plan (1) Dizziness: (2) Weakness: (3) History of traumatic head injury: (4) Abnormal urinalysis: (5) History of recurrent UTI (urinary tract infection): (6) Hypertension: Plan: #Dizziness #Weakness #Palpitations 05/23/2024: TSH: 4.2 05/23/2024 carotid Doppler: No significant stenosis within the carotid arteries 05/23/24 CT head was without acute intracranial abnormality 05/24/2024 echo: EF: 60-65%, mild concentric LVH, grade 1 diastolic dysfunction, moderate aortic regurgitation, mild mitral regurgitation, mild tricuspid regurgitation Today in ER afebrile, P: 65, LR: 22, BP 158/61, O2 sat 100% on room air UA: 3+leuk esterase, 21-50 WBC, 3-5 epithelial, no bacteria No leukocytosis, no significant electrolyte abnormality, negative troponin CT head: No acute intracranial findings CTA head: No large vessel occlusion, no intracranial aneurysm CTA neck: Unremarkable CTA neck CXR: No acute infiltrate, mild cardiomegaly per my interpretation Reported attempted ambulation in ER with dizziness symptoms. At rest is asymptomatic +orthostatic in ER Suspect orthostatic hypotension, possible vertigo component, possible post head injury/concussion component. ?arrhythmia, tachybrady syndrome with hx palpitations Patient expresses sensation of more left leg weakness with ambulating. On exam has bilateral lower extremity weakness and do not appreciate greater left-sided weakness Obtain MRI brain to complete work up Monitor BP Compression stockings Orthostatic vitals twice daily PT/OT eval Will place on telemetry to rule out any arrhythmias. Patient may benefit from outpatient site monitor CBC, BMP in a.m. #HTN In ER BP's variable and initially elevated and starting to trend down somewhat. Will monitor and if continued significant elevation may need to consider restarting BP agent Previously on amlodipine 2.5mg that has been discontinued secondary to orthostasis. #Abnormal UA #History recurrent UTI UA: 3+leuk esterase, 21-50 WBC, 3-5 epithelial, no bacteria Denies urinary symptoms for >1month since drinking cranberry juice daily In ER given Rocephin 2GM IV Will continue Rocephin pending urine culture #Protein Calorie Malnutrition BMI: 13.5 Recommend 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s. Previously dietitian had recommended 3 times daily. Patient states does not like the flavor and texture but would be willing to try daily and will try chocolate flavor this time. #Essential Tremor Previously on propranolol which had been discontinued secondary to orthostatic hypotension Do not notice tremor today. Will continue to hold propranolol DVT Prophylaxis Heparin SQ Admit med tele DNR/DNI as per discussion with pt Follows with Norma COLLINS in [place], [place] for routine care Pt was seen and care coordinated with Dr Waite. See addendum I spent a total of 80 minutes reviewing notes, outpatient records, labs, medication, coordinating, documenting and providing care for this patient excluding time spent in the performance of separately billed services. History of Present Illness Chief Complaint: Dizziness, weakness Primary Care Provider: KARINA Perea Patient is 88-year-old female with PMH spasmodic dysphonia, essential tremor, HTN, balance problems, recurrent UTI presented to ER with complaint of dizziness and weakness. History obtained from patient, patient's [id number] and inpatient chart review. Patient reports history of fall and traumatic head injury resulting in reported temporal fracture and January 2024. She reports she was seen at [facility] trauma center and reports no brain bleed at that time. She states since that time feels she has been having more dizziness with sitting and standing. She reports intermittent headaches occurring approximately once a month that she has not noted relation with dizziness. Reports intermittent bilateral ear pain since head injury January 2024. Also reports feels like having more trouble with her memory since and feels that she may have decreased hearing bilateral ears since incident. She states had followed up once with trauma team after the incident and was told that she may possibly have ongoing symptoms. Patient states feels increased episodes of dizziness over the past couple of months. She describes sensation of objects moving when she sits up and stands. States will sometimes also have sensation that her heart is racing when she is having the dizziness. Feels like vision is sometimes "hazy" when this happens. Denies complete loss of vision or noted diplopia. Denies associated nausea, vomiting, chest pain, shortness of breath, syncope. Per chart review patient with history of hospitalization 05/23/2024- 05/31/2024 for near syncope, dizziness, ambulatory dysfunction. Had noted orthostatic hypotension in which her home amlodipine and propranolol were held and patient used compression stockings. She was discharged to rehab for 2 weeks and is now back home. Reports going to PT twice a week. Patient feels for past couple months increased leg weakness and feels left leg is more weak than right with walking. Denies paresthesias or back pain. States not using compression stockings at home. She states yesterday was feeling well and completed household cleaning. Went to bed around 10:30 PM. She reports awaking 2:30 AM to urinate and when she sat up and attempted walking she had sensation of objects moving initially felt like spinning and then "[id number]. She states attempted to ambulate but felt unstable and off balance so ended up crawling to and from bathroom. She states had to sit on edge of bed for awhile last night because she was feeling too weak to get in bed. States she was still feeling dizzy "for awhile". States she called daughter in law this morning to alert her of her symptoms and was dizzy and off balance walking to car to come to ER today. Patient states that in past had followed with coin machine assembler in [place] for these episodes of heart racing and had 24 hour site monitor "that was ok", however patient does state she didn't have symptoms while monitor was on. Reports was having dysuria and was following with urology, Dr Valdovinos. States for past month drinking cranberry juice and since has not had any urinary symptoms. Denies fever/chills, diaphoresis, N/V/D/C, GUNN, dizziness, syncope, vision changes, neck pain, CP, SOB, orthopnea, cough, sore throat, choking, ear discharge, tinnitus, rhinorrhea, abdominal pain, paresthesias, extremity edema, rashes. Allergies Allergy/AdvReac Type Severity Reaction Status Date / Time Penicillins Allergy Unknown Hives Verified 04/27/24 10:58 Sulfa (Sulfonamide Allergy Unknown Hives Verified 04/27/24 10:58 Antibiotics) adhesive tape AdvReac Unknown skin Verified 04/27/24 10:58 irritation prefers paper tape Home Medications Medication Instructions Recorded Confirmed Type vit C 250 mg-E 90 mg-zinc 40 1 tab PO BID 12/15/23 07/01/24 History mg-copper 1 [id number] chew tablet (PreserVision AREDS-2) Past Med/Surg History Problem List (Updated 07/01/24 @ 16:18 by Donte Lima MD) History of recurrent UTI (urinary tract infection) Abnormal urinalysis Dizziness (Acute) Weakness (Acute) Chest pain (Acute) History of traumatic head injury (Acute) History of fall (Acute) History of aortic stenosis (Acute) Aortic insufficiency (Acute) Near syncope (Acute) Encounter for pre-operative examination Recurrent UTI No pertinent past medical history Nephrolithiasis Gastric peptic ulcer Hypertension Arthritis Pelvicaliectasis Medical History Incomplete bladder emptying History of anesthesia reaction slower to wake up with more recent procedures. 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 Trouble swallowing Occ with eating (improved with drinks in between) ; no issues taking pills Chronic /mild Multiple EGD with stretching - improvement in symptoms Essential tremor HTN (hypertension) if gets up too fast or moves to fast will get wobbly at times. Surgical History Hx of cardiac cath 2022 ? date...done due to Dr. Brown ordered/leaky aortic valve. No known further findings. [facility]. History of lithotripsy History of appendectomy History of colonoscopy History of esophagogastroduodenoscopy (EGD) hx esophagus stretched Hx of tonsillectomy Hx of cholecystectomy History of partial hysterectomy Family History Mother Hypertension Father Cancer Social History Smoking Status: Never smoker Do You Dip or Chew Tobacco: No; Hx Alcohol Use: No Hx Substance Use: No Preferred Language: [place] Communication Ability: Effective Communication Ability Comment: phone call with hippa contact, daughterinlaw paige/pt preference per paige. Medical Radiation Therapist Required: No Beliefs That Will Affect Care: None marital status: / Current Living Situation: Alone current occupational status: retired Other Information That Helps Us Care for You: No Feels Safe at Home: Yes Assistive Devices: Walker Review of Systems Review of Systems: All systems reviewed & are unremarkable except as noted in HPI & below Physical Exam Physical Exam: General: no distress, thin elderly female Head: normocephalic, atraumatic Eyes: PERRL, EOM's intact, conjunctiva non-injected, anicteric ENT: normal inspection external ears, nose, mucous membranes moist Neck: supple, trachea midline Lungs: clear, no respiratory distress, no wheezing/rhonchi/rales CV: RRR, + murmur, no pretibial edema Abd: normal BS, soft, non-tender Ext: no cyanosis, no calf tenderness Neuro: A&O x 3, normal affect. Visual leon appear intact. No nystagmus noted even with sitting up, face is strong and symmetric, somewhat hard of hearing, soft palate elevates symmetrically, no dysarthria, shoulder shrug intact, tongue is midline, normal movement, no fasciculations, +noted 3-4/5 strength bilateral legs, 4/5 bilateral arms Skin: warm, dry Results & Data Results & Data Vital Signs (Past 12 Hours) Vital Signs Temp Pulse Pulse Resp BP BP Pulse Ox 07/01/24 13:12 69 13 181/71 H 95 07/01/24 12:11 60 07/01/24 12:01 60 13 171/69 H 98 07/01/24 11:00 95 07/01/24 10:32 36.0 C L 65 22 158/61 H 100 O2 Del Method 07/01/24 13:12 Room Air 07/01/24 12:11 07/01/24 12:01 Room Air 07/01/24 11:00 Room Air 07/01/24 10:32 Room Air Laboratory Results Short CBC 07/01/24 Range/Units 11:53 WBC 6.26 (4.8-10.8) K/ul Hgb 13.4 (12.0-16.0) g/dl Hct 41.1 (37.0-47.0) % Plt Count 183 (130-400) K/uL BMP 07/01/24 11:53 Sodium 141 Potassium 4.3 Chloride 104 Carbon Dioxide 30 BUN 14 Creatinine 0.55 L Glucose 91 Calcium 10.3 Liver Function 07/01/24 Range/Units 11:53 Total Bilirubin 1.2 H (0.2-1.0) mg/dl AST 26 (13-39) U/L ALT 14 (7-52) U/L Alkaline Phosphatase 62 (34-104) U/L Albumin 4.5 (3.4-5.0) gm/dl Urine 07/01/24 Range/Units 12:30 Urine Color Yellow Urine Appearance Clear (Clear) Urine pH 7.5 (4.5-7.5) Ur Specific [place] 1.008 (1.000-1.030) Urine Protein Negative (Negative) Urine Glucose (UA) Negative (Negative) Diagnostic Findings Chest X-Ray 07/01/24 10:42 SINGLE VIEW CHEST CLINICAL HISTORY: Neurological deficit. Stroke like symptoms. FINDINGS: An AP, portable, upright chest radiograph is compared to study dated 05/23/2024. Correlation is made with chest CT dated 02/12/2023. The examination is degraded by portable technique and patient rotation. The heart is mildly enlarged noting atherosclerotic calcification of the thoracic aorta. The pulmonary vasculature is noncongested. Pleural parenchymal scarring is again seen at the apices. Chronic interstitial thickening similar to previous. Foci of parenchymal scarring are seen throughout both lungs. A calcified granuloma is seen in the left lower lung. No airspace consolidation, large pleural effusion, or pneumothorax is seen. The skeletal structures are osteopenic. The bony thorax is grossly intact. IMPRESSION: No acute cardiopulmonary abnormality is identified. ACT 112: Negative or not required by law. Electronically signed by: Marcelino Cruz M.D. 07/01/2024 11:[address] 07/01/24 10:42 CT SCAN OF THE BRAIN WITHOUT IV CONTRAST CLINICAL HISTORY: Neurologic deficit. Stroke like symptoms. COMPARISON STUDY: CT of the brain dated 05/23/2024. TECHNIQUE: Unenhanced axial CT scan of the brain is performed from the vertex to the skull base. A dose lowering technique was utilized adhering to the principles of ALARA. CT DOSE: 547.75 mGy.cm FINDINGS: Brain parenchyma: There is age-related involutional change noting moderate subcortical and periventricular microangiopathic disease. There is no hemorrhage, mass effect, or evidence of acute territorial ischemia by CT criteria. Mineralization is noted in the basal ganglia. Pulido-white matter differentiation is preserved. No extra-axial fluid collection is seen. Ventricles, sulci, cisterns: Prominent secondary to involutional change. Intracranial vasculature: There is atherosclerotic calcification of the cavernous carotid and vertebral arteries.. Calvarium: Unremarkable. Sinuses and mastoids: The visualized paranasal sinuses are clear. The mastoid air cells are well pneumatized. Orbits: The bony orbits are grossly intact. There are bilateral ocular lens implants. IMPRESSION: There is no hemorrhage, mass effect, or evidence of acute territorial ischemia by CT criteria. ACT 112: Negative or not required by law. Electronically signed by: Marcelino Cruz M.D. 07/01/2024 11:34 AM Head CTA 07/01/24 10:42 CTA ANGIOGRAPHY OF THE HEAD CLINICAL HISTORY: neuro deficit, acute stroke suspected COMPARISON STUDY: Head CT May 23, 2024. TECHNIQUE: Helical axial images of the head were obtained following uneventful intravenous administration of 120 cc of Optiray. Sagittal and coronal reconstructions were viewed as well as maximal intensity projections on an independent 3-D workstation. Automated exposure control was utilized for the study. A dose lowering technique was utilized adhering to the principles of ALARA. CT DOSE: 264.57 mGy.cm FINDINGS: No acute intracranial hemorrhage, midline shift or mass effect is present. Ventricular system is unremarkable. The basal cisterns are patent. There are no extra-axial collections. The bilateral M1, M2, A1 and A2 segments are patent. The left vertebral artery is dominant. The right vertebral artery ends in PICA. No large vessel occlusion is identified. There is no intracranial aneurysm. There is persistence of the right posterior cerebral artery. IMPRESSION: No large vessel occlusion. No intracranial aneurysm. ACT 112: Negative or not required by law. Electronically signed by: Jose A Harris M.D. 07/01/2024 1:58 PM Neck CTA 07/01/24 10:42 CT ANGIOGRAM OF THE NECK CLINICAL HISTORY: Neurological deficit. Stroke like symptoms. Dizziness. COMPARISON STUDY: No priors. TECHNIQUE: Following the IV administration of 120 of Optiray 320, CT angiogram of the neck was performed from the aortic arch to the skull base. Images are reviewed in the axial, sagittal, and coronal planes. 3-D MIPS images are created and assessed. IV contrast was administered without complication. All measurements were calculated based on NASCET criteria. A dose lowering techn ique was utilized adhering to the principles of ALARA. FINDINGS: Thoracic aorta: Visualized portions of the thoracic aorta are normal in caliber. The aortic arch demonstrates standard 3-vessel anatomy. Right carotid arterial system: The right common carotid artery is widely patent, as are the right internal and external carotid arteries. Calcified plaque is seen in the carotid bulb. Left carotid arterial system: The left common carotid artery is widely patent, as are the left internal and external carotid arteries. Calcified plaque is noted in the carotid bulb. Vertebral arteries: Widely patent bilaterally noting left-sided dominance. The right vertebral artery is diminutive and terminates as the PICA. Subclavian arteries: Widely patent bilaterally. Intracranial vasculature: The visualized intracranial vessels at the skull base are patent. There is origin of the right posterior cerebral artery. Jugular veins: Patent bilaterally. Brain parenchyma: The visualized brain parenchyma the skull base is within normal limits. Lung apices: Pleural parenchymal scarring is seen at the apices. The imaged upper lobe lung parenchyma is otherwise clear. Soft tissues: The visualized pharyngeal soft tissues are normal in appearance noting angiographic phase technique. The oropharyngeal airway appears widely patent. The salivary and thyroid glands are normal in appearance. No cervical lymphadenopathy is seen. Skeletal structures: The skeletal structures are osteopenic. The visualized calvarium at the skull base appears intact. The imaged cervical spine is maintai chente noting multilevel spondylosis. Sinuses and mastoids: The visualized paranasal sinuses are clear. The mastoid air cells are well-pneumatized. IMPRESSION: Unremarkable CT angiogram of the neck. ACT 112: Negative or not required by law. Electronically signed by: Marcelino Cruz M.D. 07/01/2024 1:16 PM ECG Additional Comments: EKG sinus bradycardia, rate 59, Q waves inferior leads which were also noted on 05/23/2024 EKG per my interpretation Supervising Physician Co-Signing Physician Notes 88 yo F w/ PMH of spasmodic dysphonia, essential tremor, HTN, balance problems, recurrent UTI presented to ER with complaint of dizziness and weakness. Pt reports fall and head injury in January 2024, was evaled at [facility]/no brain bleed at the time per pt. She reports she has been having left LE weakness more so than RLE since about the time. Last night, when she woke up from sleep about 3 am to go to the bathroom, she felt light headed and dizzy so much so that she was afraid of fall, she crawled her way to /from bathroom. She denied LOC, chest pain, palpitation, dry heaves, nausea, diaphoresis at the moment. She states that when she wakes up, she has dizziness and has had multiple falls at home in past several months. Labs reviewed, wbc wnl, lytes wnl, UA ? UTI. Follow urine cx. CXR, CT H, CTA H and N: no acute findings. Active problems: Generalized weakness and ambulatory dysfunction, LLE weak per pt : PT/OT. MRI brain to ro stroke. Severe malnutrition: BMI 13, very lean/thin/frail lady. Does have good appetite at baseline per pt. Surgical Assist consult. Orhtostatic hypotension: Ortho vitals positive. encourage PO intake, slow transition during change in position, thigh high compression stockings. Amlod and propranolol has been discontinued in the past due to orthostatic hypotension. ?UTI: f/u urine c/s. c/w rocephin for now. On Exam : GENERAL: Alert and oriented x3. NAD, on RA. Appears lean/thin/frail/weak. HEENT: No pallor, no icterus. Pupils equal, round and reactive to light. Oral mucosa moist. NECK: No JVD, no neck masses. HEART: S1 and S2 heard. Regular rate and rhythm. No murmur, no gallop. RESPIRATORY SYSTEM: Normal AP diameter. No accessory muscle use. No wheezing, no crackles. ABDOMEN: Soft, bowel sounds present, nontender, no distention. CENTRAL NERVOUS SYSTEM: No facial droop. Speech is clear. Obeys simple commands. Moves extremities. EXTREMITIES: No edema, no erythema seen. anterior arana w/ traumatic bruises/discolorations. I have seen and examined the patient and have discussed the case with the provider above. I agree with the assessment and plan as stated.
--- NOTE | 2024-07-01 14:00 | CT Scan Report ---
CTA ANGIOGRAPHY OF THE HEAD CLINICAL HISTORY: neuro deficit, acute stroke suspected COMPARISON STUDY: Head CT May 23, 2024. TECHNIQUE: Helical axial images of the head were obtained following uneventful intravenous administr ation of 120 cc of Optiray. Sagittal and coronal reconstructions were viewed as well as maximal inten sity projections on an independent 3-D workstation. Automated exposure control was utilized for the study. A dose lowering technique was utilized adhering to the principles of ALARA. CT DOSE: 264.57 mGy.cm FINDINGS: No acute intracranial hemorrhage, midline shift or mass effect is present. Ventricular syst em is unremarkable. The basal cisterns are patent. There are no extra-axial collections. The bilatera l M1, M2, A1 and A2 segments are patent. The left vertebral artery is dominant. The right vertebral a rtery ends in PICA. No large vessel occlusion is identified. There is no intracranial aneurysm. There is persistence of the right posterior cerebral artery. IMPRESSION: No large vessel occlusion. No intracranial aneurysm. ACT 112: Negative or not required by law. Electronically signed by: Jose A Harris M.D. 07/01/2024 1:58 PM
--- NOTE | 2024-07-01 14:55 | Electrocardiogram Report ---
Test Reason : Blood Pressure : */* mmHG Vent. 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
[2024-07-01] MEDS: cefTRIAXone SODIUM 2,000 MG/50 ML BAG IV STA (15:06)
[2024-07-01] MEDS ORDERED: POLYETHYLENE (MIRALAX) 17 GM PACK PO PRN (17:02)
[2024-07-01] MEDS ORDERED: ONDANSETRON INJ 2 MG/ML 2 ML VIAL IV PRN (17:02)
--- NOTE | 2024-07-01 17:03 | Magnetic Resonance Report ---
MRI OF THE BRAIN WITHOUT IV CONTRAST CLINICAL HISTORY: Dizziness. COMPARISON STUDY: CT of the brain dated 07/01/2024. TECHNIQUE: MRI of the brain was performed utilizing various T1 and T2-weighted sequences in the axial , sagittal, and coronal planes. IV contrast was not administered for this examination. FINDINGS: Brain parenchyma: There is age-related involutional change noting mild subcortical and periventricula r microangiopathic disease. There is no hemorrhage or mass effect. There is no restricted diffusion t o suggest acute ischemia. Mineralization is noted in the basal ganglia. Pulido-white matter differentia tion is preserved. No extra-axial fluid collection is seen. The cerebellar tonsils are normal in conf iguration. Ventricles, sulci, and cisterns: Prominent secondary to involutional change. Pituitary and sella: Unremarkable. Intracranial vasculature: Normal flow voids are maintained at the skull base. Orbits: The bony orbits are grossly intact. Orbital contents are normal in appearance noting bilatera l ocular lens implants. Sinuses and mastoids: Clear. Calvarium: Unremarkable. Cervical cord: Partially visualized cervical spinal cord is normal in morphology and signal intensity . IMPRESSION: No acute intracranial abnormality. ACT 112: Negative or not required by law. Electronically signed by: Marcelino Cruz M.D. 07/01/2024 5:01 PM
[2024-07-01] MEDS: LOSARTAN POTASSIUM 25 MG TAB PO SCH (20:47)
[2024-07-01] MEDS: HEPARIN SOD 5,000 UNIT/0.5 ML VIAL SQ SCH (20:47)
--- OUTSIDE RECORDS SUMMARY | 2024-07-01 21:52 | External Medical Summary | Continuity Of Care Document ---
Author Name Unknown Address [address] [address] Organization [facility] () Care Team Providers Care Library Clerk Name Role Phone DO Carlton Amy Primary Care Provider [phone] Allergies Allergy Reaction Start Date End Date Status PENICILLINS Active SULFA (SULFONAMIDE ANTIBIOTICS) 00/0 Active ADHESIVE TAPE Blistering, Rash Activ e Medications Medication Instructions Dosage Start Date End Date Status Order Date Drug Code Frequency Route of Admin Diagnosis Code Substitutions Allowed Tubersol 5 tub. unit/0.1 mL intradermal injection solution [Tuberculin PPD] 0.1 mL Intradermal 1 time For PPD Step 1 GIVE on Day 1 and read results Day 3 0.1 mL 06/03 Inactiv e 2023 27275 88444 0 1 time Intrad ermal False Tubersol 5 tub. unit/0.1 mL intradermal injection solution [Tuberculin PPD] 0.1mL Intradermal 1 time For PPD 2nd Step Give 2nd Step PPD Day 1 and Read results Day 3 (schedule 7 days after 1st READ) 0.1mL 06/12 Active 2023 04533 45985 0 1 time Intrad ermal False Tylenol 325 mg tablet 2 tabs By Mouth Every 4 hours as needed For Pain DO NOT EXCEED 3000 MG APAP/24 Hours 2 tabs 202300 Active 2023 48717 89395 0 Every 4 hours as needed By Mouth False Tylenol 325 mg tablet 2 tabs By Mouth Every 4 hours as needed For Fever >100 DO NOT EXCEED 3000 MG APAP/24 Hours 2 tabs 2023 Active 2023 23415 62727 0 Every 4 hours as needed By Mouth False Dulcolax (bisacodyl) 10 mg rectal suppository One Suppository per rectum PRN if Milk of Magnisia ineffective. Give on day 5 of no BM 1 sup 2023 Active 2023 96789 26759 1 Daily as needed Rectal False Fleet Enema 19 gram-7 gram/118 mL Administer per rectum PRN one time if dulcolax suppository not effective. Give on day 6 of no BM 1 2023 Active 2023 60471 42671 6 Daily as needed Rectal False Milk of Magnesia 400 mg/5 mL oral suspension [Magnesium hydroxide] PRN 30ml By Mouth Daily as needed for constipation one time daily if no BM, on day 4 of no BM (PRN refer to instructions) For Constipation 30 mL 2023 Active 2023 49653 66890 6 Daily as needed By Mouth False Aspirin 81 mg chewable tablet [generic] 81mg By Mouth Once daily For aortic stenosis 81mg 2023 Active 2023 72544 92801 6 Once daily By Mouth False Potassium gluconate 600 mg (99 mg) tablet [generic] 1 tablet By Mouth Once daily For supplement 1 tablet 2023 Active 2023 34368 50099 8 Once daily By Mouth False Centrum Silver 400 mcg-250 mcg chewable tablet 1 tablet By Mouth Once daily For supplement 1 tablet 2023 Active 2023 68464 04575 9 Once daily By Mouth False PreserVisio n AREDS 2 Plus Multivit 200 mcg-15 mcg-5 mg-1 mg capsule 1 tablet By Mouth Once daily For supplement 1 tablet 2023 Active 2023 64739 61206 4 Once daily By Mouth False Problems Code Description Start Date End Date Status E43. Unspecified severe protein-calorie malnutrition 05/31/2024 Active R49.0 Dysphonia 05/31/2024 Active N28.89 Other specified disorders of kidney and ureter 05/31/2024 Active I35.1 Nonrheumatic aortic (valve) insufficiency 05/31 Active I10. Essential (primary) hypertension 05/31/2024 Active R26.0 Ataxic gait 05/31/2024 Active R55. Syncope and collapse 05/31/2024 Acti ve R42. Dizziness and giddiness 05/31/2024 A ctive K25.9 Gastric ulcer, unspe cified as acute or chronic, without hemorrhage or perforation 05/31/2024 Active M19.90 Unspecified osteoarthritis, unspecified site Active Z87.440 Personal history of urinary (tract) infections 05/31/2024 Active Z87.81 Personal history of (healed) traumatic fracture 05/31/2024 Active I95.0 Idiopathic hypotension 05/31/2024 Ac tive R13.19 Other dysphagia 06/05/2024 Active VITAL SIGNS Date Time Diastolic blood pressure Systolic blood pressure Body height Body weight Temperature SpO2 Blood Sugar Pulse Respirations 06608 0 79.00 mm[Hg] - Sitting 136.00 mm[Hg] - Sitting 97.90 Tympanic 84.00/ min 18.00/min 910 99297 1 62 NI 910 28859 1 910 17289 0 79.00 mm[Hg] - Sitting 136.00 mm[Hg] - Sitting 62 NI 75.80 NI 97.90 Tympanic 98.00 % 84.00/ min 18.00/min 910 70898 0 79.00 mm[Hg] - Sitting 136.00 mm[Hg] - Sitting 97.90 Tympanic 84.00/ min 18.00/min 910 53165 9 1 02056 5 75.80 NI 91 03562 0 62.00 mm[Hg] - Sitting 110.00 mm[Hg] - Sitting 98.70 Forehead Scan 96.00 % 87.00/ min 16.00/min 911 48843 0 80.00/ min 912 05070 6 50.00 mm[Hg] - Sitting 148.00 mm[Hg] - Sitting 98.10 Tympanic 98.00 % 68.00/ min 16.00/min 34773 912 58914 3 75.00 mm[Hg] - Sitting 152.00 mm[Hg] - Sitting 91818 914 98435 0 46.00 mm[Hg] - Sitting 127.00 mm[Hg] - Sitting 98.20 Tympanic 98.00 % 66.00/ min 18.00/min 915 48934 2 49.00 mm[Hg] - Sitting 140.00 mm[Hg] - Sitting 98.00 Tympanic 97.00 % 71.00/ min 18.00/min 918 95377 9 76.20 NI 918 29706 7 46.00 mm[Hg] - Sitting 125.00 mm[Hg] - Sitting 98.10 Tympanic 98.00 % 77.00/ min 16.00/min
--- OUTSIDE RECORDS SUMMARY | 2024-07-01 21:52 | External Medical Summary | Continuity Of Care Document ---
Author Name Unknown Address [address] [address] Organization [facility] () Care Team Providers Care Conversion Man Name Role Phone DO Carlton Amy Primary Care Provider [phone] Allergies Allergy Reaction Start Date End Date [...] 3 0.1 mL 06/03 Inactiv e 2023 28197 09439 0 1 time Intrad ermal False Tubersol 5 tub. unit/0.1 mL intradermal injection solution [Tuberculin PPD] 0.1mL Intradermal 1 time For PPD 2nd Step Give 2nd Step PPD Day 1 and Read results Day 3 (schedule 7 days after 1st READ) 0.1mL 06/12 Active 2023 57314 39698 0 1 time Intrad ermal False Tylenol 325 mg tablet 2 tabs By Mouth Every 4 hours as needed For Pain DO NOT EXCEED 3000 MG APAP/24 Hours 2 tabs 2023 Active 2023 46215 60782 0 Every 4 hours as needed By Mouth False Tylenol 325 mg tablet 2 tabs By Mouth Every 4 hours as needed For Fever >100 DO NOT EXCEED 3000 MG APAP/24 Hours 2 tabs 2023 Active 2023 74327 23438 0 Every 4 hours as needed By Mouth False Dulcolax (bisacodyl) 10 mg rectal suppository One Suppository per rectum PRN if Milk of Magnisia ineffective. Give on day 5 of no BM 1 sup 2023 Active 2023 96522 50689 1 Daily as needed Rectal False Fleet Enema 19 gram-7 gram/118 mL Administer per rectum PRN one time if dulcolax suppository not effective. Give on day 6 of no BM 1 2023 Active 2023 07229 33408 6 Daily as needed Rectal False Milk of Magnesia 400 mg/5 mL oral suspension [Magnesium hydroxide] PRN 30ml By Mouth Daily as needed for constipation one time daily if no BM, on day 4 of no BM (PRN refer to instructions) For Constipation 30 mL 2023 Active 2023 96545 11863 6 Daily as needed By Mouth False Aspirin 81 mg chewable tablet [generic] 81mg By Mouth Once daily For aortic stenosis 81mg 2023 Active 2023 66291 23596 6 Once daily By Mouth False Potassium gluconate 600 mg (99 mg) tablet [generic] 1 tablet By Mouth Once daily For supplement 1 tablet 2023 Active 2023 31142 17947 8 Once daily By Mouth False Centrum Silver 400 mcg-250 mcg chewable tablet 1 tablet By Mouth Once daily For supplement 1 tablet 2023 Active 2023 94586 24841 9 Once daily By Mouth False PreserVisio n AREDS 2 Plus Multivit 200 mcg-15 mcg-5 mg-1 mg capsule 1 tablet By Mouth Once daily For supplement 1 tablet 2023 Active 2023 19430 11791 4 Once daily By Mouth False Problems [...] weight Temperature SpO2 Blood Sugar Pulse Respirations 46697 0 79.00 mm[Hg] - Sitting 136.00 mm[Hg] - Sitting 97.90 Tympanic 84.00/ min 18.00/min 910 57131 1 62 NI 910 69217 1 910 28240 0 79.00 mm[Hg] - Sitting 136.00 mm[Hg] - Sitting 62 NI 75.80 NI 97.90 Tympanic 98.00 % 84.00/ min 18.00/min 910 23959 0 79.00 mm[Hg] - Sitting 136.00 mm[Hg] - Sitting 97.90 Tympanic 84.00/ min 18.00/min 910 97410 9 1 84493 5 75.80 NI 91 98684 0 62.00 mm[Hg] - Sitting 110.00 mm[Hg] - Sitting 98.70 Forehead Scan 96.00 % 87.00/ min 16.00/min 911 43043 0 80.00/ min 912 75664 6 50.00 mm[Hg] - Sitting 148.00 mm[Hg] - Sitting 98.10 Tympanic 98.00 % 68.00/ min 16.00/min 12780 912 07038 3 75.00 mm[Hg] - Sitting 152.00 mm[Hg] - Sitting 39639 914 61831 0 46.00 mm[Hg] - Sitting 127.00 mm[Hg] - Sitting 98.20 Tympanic 98.00 % 66.00/ min 18.00/min 915 05783 2 49.00 mm[Hg] - Sitting 140.00 mm[Hg] - Sitting 98.00 Tympanic 97.00 % 71.00/ min 18.00/min 918 83554 9 76.20 NI 918 85416 7 46.00 mm[Hg] - Sitting 125.00 mm[Hg] - Sitting 98.10 Tympanic 98.00 % 77.00/ min 16.00/min
--- OUTSIDE RECORDS SUMMARY | 2024-07-01 21:52 | External Medical Summary | Continuity Of Care Document ---
Author Name Unknown Address [address] [address] Organization [facility] () Care Team Providers Care Grant Administrator Name Role Phone DO Carlton Amy Primary Care Provider [phone] Allergies Allergy Reaction Start Date End Date [...] 3 0.1 mL 06/03 Inactiv e 2023 26148 34288 0 1 time Intrad ermal False Tubersol 5 tub. unit/0.1 mL intradermal injection solution [Tuberculin PPD] 0.1mL Intradermal 1 time For PPD 2nd Step Give 2nd Step PPD Day 1 and Read results Day 3 (schedule 7 days after 1st READ) 0.1mL 06/12 Active 2023 78995 81287 0 1 time Intrad ermal False Tylenol 325 mg tablet 2 tabs By Mouth Every 4 hours as needed For Pain DO NOT EXCEED 3000 MG APAP/24 Hours 2 tabs 2023 Active 2023 22237 46502 0 Every 4 hours as needed By Mouth False Tylenol 325 mg tablet 2 tabs By Mouth Every 4 hours as needed For Fever >100 DO NOT EXCEED 3000 MG APAP/24 Hours 2 tabs 2023 Active 2023 43075 44383 0 Every 4 hours as needed By Mouth False Dulcolax (bisacodyl) 10 mg rectal suppository One Suppository per rectum PRN if Milk of Magnisia ineffective. Give on day 5 of no BM 1 sup 2023 Active 2023 86202 50155 1 Daily as needed Rectal False Fleet Enema 19 gram-7 gram/118 mL Administer per rectum PRN one time if dulcolax suppository not effective. Give on day 6 of no BM 1 2023 Active 2023 17742 87049 6 Daily as needed Rectal False Milk of Magnesia 400 mg/5 mL oral suspension [Magnesium hydroxide] PRN 30ml By Mouth Daily as needed for constipation one time daily if no BM, on day 4 of no BM (PRN refer to instructions) For Constipation 30 mL 2023 Active 2023 50198 20757 6 Daily as needed By Mouth False Aspirin 81 mg chewable tablet [generic] 81mg By Mouth Once daily For aortic stenosis 81mg 2023 Active 2023 73050 88812 6 Once daily By Mouth False Potassium gluconate 600 mg (99 mg) tablet [generic] 1 tablet By Mouth Once daily For supplement 1 tablet 2023 Active 2023 54294 17170 8 Once daily By Mouth False Centrum Silver 400 mcg-250 mcg chewable tablet 1 tablet By Mouth Once daily For supplement 1 tablet 2023 Active 2023 77905 64171 9 Once daily By Mouth False PreserVisio n AREDS 2 Plus Multivit 200 mcg-15 mcg-5 mg-1 mg capsule 1 tablet By Mouth Once daily For supplement 1 tablet 2023 Active 2023 44486 39135 4 Once daily By Mouth False Problems [...] Active I95.0 Idiopathic hypotension 05/31/2024 Ac tive VITAL SIGNS Date Time Diastolic blood pressure Systolic blood pressure Body height Body weight Temperature SpO2 Blood Sugar Pulse Respirations 86731 0 79.00 mm[Hg] - Sitting 136.00 mm[Hg] - Sitting 97.90 Tympanic 84.00/ min 18.00/min 910 20082 1 62 NI 910 87765 1 910 74986 0 79.00 mm[Hg] - Sitting 136.00 mm[Hg] - Sitting 62 NI 75.80 NI 97.90 Tympanic 98.00 % 84.00/ min 18.00/min 910 39952 0 79.00 mm[Hg] - Sitting 136.00 mm[Hg] - Sitting 97.90 Tympanic 84.00/ min 18.00/min 910 11415 9 911 57420 5 75.80 NI 911 09675 0 62.00 mm[Hg] - Sitting 110.00 mm[Hg] - Sitting 98.70 Forehead Scan 96.00 % 87.00/ min 16.00/min 911 16482 0 80.00/ min 912 10247 6 50.00 mm[Hg] - Sitting 148.00 mm[Hg] - Sitting 98.10 Tympanic 98.00 % 68.00/ min 16.00/min 10367 912 11304 3 75.00 mm[Hg] - Sitting 152.00 mm[Hg] - Sitting 04568 914 29750 0 46.00 mm[Hg] - Sitting 127.00 mm[Hg] - Sitting 98.20 Tympanic 98.00 % 66.00/ min 18.00/min 45319 915 24009 2 49.00 mm[Hg] - Sitting 140.00 mm[Hg] - Sitting 98.00 Tympanic 97.00 % 71.00/ min 18.00/min
--- OUTSIDE RECORDS SUMMARY | 2024-07-01 21:52 | External Medical Summary | Continuity Of Care Document ---
Author Name Unknown Address [address] [address] Organization [facility] () Care Team Providers Care Supervisor Fleshing Name Role Phone DO Carlton Amy Primary Care Provider [phone] Allergies Allergy Reaction Start Date End Date [...] 3 0.1 mL 06/03 Inactiv e 2023 25221 74372 0 1 time Intrad ermal False Tubersol 5 tub. unit/0.1 mL intradermal injection solution [Tuberculin PPD] 0.1mL Intradermal 1 time For PPD 2nd Step Give 2nd Step PPD Day 1 and Read results Day 3 (schedule 7 days after 1st READ) 0.1mL 06/12 Active 2023 23447 29479 0 1 time Intrad ermal False Tylenol 325 mg tablet 2 tabs By Mouth Every 4 hours as needed For Pain DO NOT EXCEED 3000 MG APAP/24 Hours 2 tabs 2023 Active 2023 68376 08526 0 Every 4 hours as needed By Mouth False Tylenol 325 mg tablet 2 tabs By Mouth Every 4 hours as needed For Fever >100 DO NOT EXCEED 3000 MG APAP/24 Hours 2 tabs 2023 Active 2023 12089 74306 0 Every 4 hours as needed By Mouth False Dulcolax (bisacodyl) 10 mg rectal suppository One Suppository per rectum PRN if Milk of Magnisia ineffective. Give on day 5 of no BM 1 sup 2023 Active 2023 46822 98333 1 Daily as needed Rectal False Fleet Enema 19 gram-7 gram/118 mL Administer per rectum PRN one time if dulcolax suppository not effective. Give on day 6 of no BM 1 2023 Active 2023 22720 95518 6 Daily as needed Rectal False Milk of Magnesia 400 mg/5 mL oral suspension [Magnesium hydroxide] PRN 30ml By Mouth Daily as needed for constipation one time daily if no BM, on day 4 of no BM (PRN refer to instructions) For Constipation 30 mL 2023 Active 2023 18712 87717 6 Daily as needed By Mouth False Aspirin 81 mg chewable tablet [generic] 81mg By Mouth Once daily For aortic stenosis 81mg 2023 Active 2023 41514 53809 6 Once daily By Mouth False Potassium gluconate 600 mg (99 mg) tablet [generic] 1 tablet By Mouth Once daily For supplement 1 tablet 2023 Active 2023 85937 03891 8 Once daily By Mouth False Centrum Silver 400 mcg-250 mcg chewable tablet 1 tablet By Mouth Once daily For supplement 1 tablet 2023 Active 2023 00301 26507 9 Once daily By Mouth False PreserVisio n AREDS 2 Plus Multivit 200 mcg-15 mcg-5 mg-1 mg capsule 1 tablet By Mouth Once daily For supplement 1 tablet 2023 Active 2023 63971 95694 4 Once daily By Mouth False Problems [...] weight Temperature SpO2 Blood Sugar Pulse Respirations 21002 0 79.00 mm[Hg] - Sitting 136.00 mm[Hg] - Sitting 97.90 Tympanic 84.00/ min 18.00/min 910 84315 1 62 NI 910 56435 1 910 08232 0 79.00 mm[Hg] - Sitting 136.00 mm[Hg] - Sitting 62 NI 75.80 NI 97.90 Tympanic 98.00 % 84.00/ min 18.00/min 910 39509 0 79.00 mm[Hg] - Sitting 136.00 mm[Hg] - Sitting 97.90 Tympanic 84.00/ min 18.00/min 910 68584 9 1 11890 5 75.80 NI 91 33384 0 62.00 mm[Hg] - Sitting 110.00 mm[Hg] - Sitting 98.70 Forehead Scan 96.00 % 87.00/ min 16.00/min 911 61075 0 80.00/ min 912 87028 6 50.00 mm[Hg] - Sitting 148.00 mm[Hg] - Sitting 98.10 Tympanic 98.00 % 68.00/ min 16.00/min 11643 912 62696 3 75.00 mm[Hg] - Sitting 152.00 mm[Hg] - Sitting 914 00966 0 46.00 mm[Hg] - Sitting 127.00 mm[Hg] - Sitting 98.20 Tympanic 98.00 % 66.00/ min 18.00/min 915 24188 2 49.00 mm[Hg] - Sitting 140.00 mm[Hg] - Sitting 98.00 Tympanic 97.00 % 71.00/ min 18.00/min
--- OUTSIDE RECORDS SUMMARY | 2024-07-01 21:52 | External Medical Summary | Continuity Of Care Document ---
Author Name Unknown Address [address] [address] Organization [facility] () Care Team Providers Care Esl Teacher Name Role Phone DO Carlton Amy Primary Care Provider [phone] Allergies Allergy Reaction Start Date End Date [...] 3 0.1 mL 06/03 Inactiv e 2023 95478 95043 0 1 time Intrad ermal False Tubersol 5 tub. unit/0.1 mL intradermal injection solution [Tuberculin PPD] 0.1mL Intradermal 1 time For PPD 2nd Step Give 2nd Step PPD Day 1 and Read results Day 3 (schedule 7 days after 1st READ) 0.1mL 06/12 Active 2023 70927 03980 0 1 time Intrad ermal False Tylenol 325 mg tablet 2 tabs By Mouth Every 4 hours as needed For Pain DO NOT EXCEED 3000 MG APAP/24 Hours 2 tabs 2023 Active 2023 18338 72487 0 Every 4 hours as needed By Mouth False Tylenol 325 mg tablet 2 tabs By Mouth Every 4 hours as needed For Fever >100 DO NOT EXCEED 3000 MG APAP/24 Hours 2 tabs 2023 Active 2023 51914 38509 0 Every 4 hours as needed By Mouth False Dulcolax (bisacodyl) 10 mg rectal suppository One Suppository per rectum PRN if Milk of Magnisia ineffective. Give on day 5 of no BM 1 sup 2023 Active 2023 92420 81763 1 Daily as needed Rectal False Fleet Enema 19 gram-7 gram/118 mL Administer per rectum PRN one time if dulcolax suppository not effective. Give on day 6 of no BM 1 2023 Active 2023 70736 16216 6 Daily as needed Rectal False Milk of Magnesia 400 mg/5 mL oral suspension [Magnesium hydroxide] PRN 30ml By Mouth Daily as needed for constipation one time daily if no BM, on day 4 of no BM (PRN refer to instructions) For Constipation 30 mL 2023 Active 2023 65335 60210 6 Daily as needed By Mouth False Aspirin 81 mg chewable tablet [generic] 81mg By Mouth Once daily For aortic stenosis 81mg 2023 Active 2023 00526 20593 6 Once daily By Mouth False Potassium gluconate 600 mg (99 mg) tablet [generic] 1 tablet By Mouth Once daily For supplement 1 tablet 2023 Active 2023 21603 56420 8 Once daily By Mouth False Centrum Silver 400 mcg-250 mcg chewable tablet 1 tablet By Mouth Once daily For supplement 1 tablet 2023 Active 2023 86886 78200 9 Once daily By Mouth False PreserVisio n AREDS 2 Plus Multivit 200 mcg-15 mcg-5 mg-1 mg capsule 1 tablet By Mouth Once daily For supplement 1 tablet 2023 Active 2023 45014 91063 4 Once daily By Mouth False Problems [...] weight Temperature SpO2 Blood Sugar Pulse Respirations 39536 0 79.00 mm[Hg] - Sitting 136.00 mm[Hg] - Sitting 97.90 Tympanic 84.00/ min 18.00/min 910 22889 1 62 NI 910 06623 1 910 65260 0 79.00 mm[Hg] - Sitting 136.00 mm[Hg] - Sitting 62 NI 75.80 NI 97.90 Tympanic 98.00 % 84.00/ min 18.00/min 910 28218 0 79.00 mm[Hg] - Sitting 136.00 mm[Hg] - Sitting 97.90 Tympanic 84.00/ min 18.00/min 910 68512 9 1 84677 5 75.80 NI 91 41416 0 62.00 mm[Hg] - Sitting 110.00 mm[Hg] - Sitting 98.70 Forehead Scan 96.00 % 87.00/ min 16.00/min 911 28579 0 80.00/ min 912 82689 6 50.00 mm[Hg] - Sitting 148.00 mm[Hg] - Sitting 98.10 Tympanic 98.00 % 68.00/ min 16.00/min 46767 912 03342 3 75.00 mm[Hg] - Sitting 152.00 mm[Hg] - Sitting 17984 914 55468 0 46.00 mm[Hg] - Sitting 127.00 mm[Hg] - Sitting 98.20 Tympanic 98.00 % 66.00/ min 18.00/min 915 38988 2 49.00 mm[Hg] - Sitting 140.00 mm[Hg] - Sitting 98.00 Tympanic 97.00 % 71.00/ min 18.00/min 918 74133 9 76.20 NI 918 19889 7 46.00 mm[Hg] - Sitting 125.00 mm[Hg] - Sitting 98.10 Tympanic 98.00 % 77.00/ min 16.00/min
--- OUTSIDE RECORDS SUMMARY | 2024-07-01 21:52 | External Medical Summary | Continuity Of Care Document ---
Author Name Unknown Address [address] [address] Organization [facility] () Care Team Providers Care Filler Sifter Helper Name Role Phone DO Carlton Amy Primary Care Provider [phone] Allergies Allergy Reaction Start Date End Date [...] 3 0.1 mL 06/03 Inactiv e 2023 07797 97865 0 1 time Intrad ermal False Tubersol 5 tub. unit/0.1 mL intradermal injection solution [Tuberculin PPD] 0.1mL Intradermal 1 time For PPD 2nd Step Give 2nd Step PPD Day 1 and Read results Day 3 (schedule 7 days after 1st READ) 0.1mL 06/12 Active 2023 80878 52872 0 1 time Intrad ermal False Tylenol 325 mg tablet 2 tabs By Mouth Every 4 hours as needed For Pain DO NOT EXCEED 3000 MG APAP/24 Hours 2 tabs 2023 Active 2023 91213 88934 0 Every 4 hours as needed By Mouth False Tylenol 325 mg tablet 2 tabs By Mouth Every 4 hours as needed For Fever >100 DO NOT EXCEED 3000 MG APAP/24 Hours 2 tabs 2023 Active 2023 08701 48447 0 Every 4 hours as needed By Mouth False Dulcolax (bisacodyl) 10 mg rectal suppository One Suppository per rectum PRN if Milk of Magnisia ineffective. Give on day 5 of no BM 1 sup 2023 Active 2023 09126 71146 1 Daily as needed Rectal False Fleet Enema 19 gram-7 gram/118 mL Administer per rectum PRN one time if dulcolax suppository not effective. Give on day 6 of no BM 1 2023 Active 2023 56788 88052 6 Daily as needed Rectal False Milk of Magnesia 400 mg/5 mL oral suspension [Magnesium hydroxide] PRN 30ml By Mouth Daily as needed for constipation one time daily if no BM, on day 4 of no BM (PRN refer to instructions) For Constipation 30 mL 2023 Active 2023 92169 03675 6 Daily as needed By Mouth False Aspirin 81 mg chewable tablet [generic] 81mg By Mouth Once daily For aortic stenosis 81mg 2023 Active 2023 65504 03911 6 Once daily By Mouth False Potassium gluconate 600 mg (99 mg) tablet [generic] 1 tablet By Mouth Once daily For supplement 1 tablet 2023 Active 2023 79269 00327 8 Once daily By Mouth False Centrum Silver 400 mcg-250 mcg chewable tablet 1 tablet By Mouth Once daily For supplement 1 tablet 2023 Active 2023 68503 77384 9 Once daily By Mouth False PreserVisio n AREDS 2 Plus Multivit 200 mcg-15 mcg-5 mg-1 mg capsule 1 tablet By Mouth Once daily For supplement 1 tablet 2023 Active 2023 93167 10626 4 Once daily By Mouth False Problems [...] weight Temperature SpO2 Blood Sugar Pulse Respirations 42052 0 79.00 mm[Hg] - Sitting 136.00 mm[Hg] - Sitting 97.90 Tympanic 84.00/ min 18.00/min 910 74249 1 62 NI 910 58357 1 910 85578 0 79.00 mm[Hg] - Sitting 136.00 mm[Hg] - Sitting 62 NI 75.80 NI 97.90 Tympanic 98.00 % 84.00/ min 18.00/min 910 15617 0 79.00 mm[Hg] - Sitting 136.00 mm[Hg] - Sitting 97.90 Tympanic 84.00/ min 18.00/min 910 69979 9 1 64672 5 75.80 NI 91 48544 0 62.00 mm[Hg] - Sitting 110.00 mm[Hg] - Sitting 98.70 Forehead Scan 96.00 % 87.00/ min 16.00/min 911 40087 0 80.00/ min 912 05392 6 50.00 mm[Hg] - Sitting 148.00 mm[Hg] - Sitting 98.10 Tympanic 98.00 % 68.00/ min 16.00/min 98318 912 39539 3 75.00 mm[Hg] - Sitting 152.00 mm[Hg] - Sitting 914 07033 0 46.00 mm[Hg] - Sitting 127.00 mm[Hg] - Sitting 98.20 Tympanic 98.00 % 66.00/ min 18.00/min 915 25042 2 49.00 mm[Hg] - Sitting 140.00 mm[Hg] - Sitting 98.00 Tympanic 97.00 % 71.00/ min 18.00/min
--- OUTSIDE RECORDS SUMMARY | 2024-07-01 21:52 | External Medical Summary | Continuity Of Care Document ---
Author Name Unknown Address [address] [address] Organization [facility] () Care Team Providers Care Steel Floor Pan Placing Supervisor Name Role Phone DO Carlton Amy Primary Care Provider [phone] Allergies Allergy Reaction Start Date End Date [...] 3 0.1 mL 06/03 Inactiv e 2023 74542 53258 0 1 time Intrad ermal False Tubersol 5 tub. unit/0.1 mL intradermal injection solution [Tuberculin PPD] 0.1mL Intradermal 1 time For PPD 2nd Step Give 2nd Step PPD Day 1 and Read results Day 3 (schedule 7 days after 1st READ) 0.1mL 06/12 Active 2023 20413 30805 0 1 time Intrad ermal False Tylenol 325 mg tablet 2 tabs By Mouth Every 4 hours as needed For Pain DO NOT EXCEED 3000 MG APAP/24 Hours 2 tabs 2023 Active 2023 17381 07167 0 Every 4 hours as needed By Mouth False Tylenol 325 mg tablet 2 tabs By Mouth Every 4 hours as needed For Fever >100 DO NOT EXCEED 3000 MG APAP/24 Hours 2 tabs 2023 Active 2023 28291 65642 0 Every 4 hours as needed By Mouth False Dulcolax (bisacodyl) 10 mg rectal suppository One Suppository per rectum PRN if Milk of Magnisia ineffective. Give on day 5 of no BM 1 sup 2023 Active 2023 05665 94675 1 Daily as needed Rectal False Fleet Enema 19 gram-7 gram/118 mL Administer per rectum PRN one time if dulcolax suppository not effective. Give on day 6 of no BM 1 2023 Active 2023 44064 81713 6 Daily as needed Rectal False Milk of Magnesia 400 mg/5 mL oral suspension [Magnesium hydroxide] PRN 30ml By Mouth Daily as needed for constipation one time daily if no BM, on day 4 of no BM (PRN refer to instructions) For Constipation 30 mL 2023 Active 2023 50995 71358 6 Daily as needed By Mouth False Aspirin 81 mg chewable tablet [generic] 81mg By Mouth Once daily For aortic stenosis 81mg 2023 Active 2023 96144 39025 6 Once daily By Mouth False Potassium gluconate 600 mg (99 mg) tablet [generic] 1 tablet By Mouth Once daily For supplement 1 tablet 2023 Active 2023 45620 19473 8 Once daily By Mouth False Centrum Silver 400 mcg-250 mcg chewable tablet 1 tablet By Mouth Once daily For supplement 1 tablet 2023 Active 2023 06680 64882 9 Once daily By Mouth False PreserVisio n AREDS 2 Plus Multivit 200 mcg-15 mcg-5 mg-1 mg capsule 1 tablet By Mouth Once daily For supplement 1 tablet 2023 Active 2023 13916 45859 4 Once daily By Mouth False Problems [...] weight Temperature SpO2 Blood Sugar Pulse Respirations 05427 0 79.00 mm[Hg] - Sitting 136.00 mm[Hg] - Sitting 97.90 Tympanic 84.00/ min 18.00/min 910 08445 1 62 NI 910 03428 1 910 01067 0 79.00 mm[Hg] - Sitting 136.00 mm[Hg] - Sitting 62 NI 75.80 NI 97.90 Tympanic 98.00 % 84.00/ min 18.00/min 910 68805 0 79.00 mm[Hg] - Sitting 136.00 mm[Hg] - Sitting 97.90 Tympanic 84.00/ min 18.00/min 910 05242 9 911 12445 5 75.80 NI 911 29688 0 62.00 mm[Hg] - Sitting 110.00 mm[Hg] - Sitting 98.70 Forehead Scan 96.00 % 87.00/ min 16.00/min 911 50850 0 80.00/ min 912 88265 6 50.00 mm[Hg] - Sitting 148.00 mm[Hg] - Sitting 98.10 Tympanic 98.00 % 68.00/ min 16.00/min 49338 912 53734 3 75.00 mm[Hg] - Sitting 152.00 mm[Hg] - Sitting 09034 914 07189 0 46.00 mm[Hg] - Sitting 127.00 mm[Hg] - Sitting 98.20 Tympanic 98.00 % 66.00/ min 18.00/min
--- OUTSIDE RECORDS SUMMARY | 2024-07-01 21:52 | External Medical Summary | Continuity Of Care Document ---
Author Name Unknown Address [address] [address] Organization [facility] () Care Team Providers Care Rounder Hand Name Role Phone DO Carlton Amy Primary Care Provider [phone] Allergies Allergy Reaction Start Date End Date [...] 3 0.1 mL 06/03 Inactiv e 2023 87163 80718 0 1 time Intrad ermal False Tubersol 5 tub. unit/0.1 mL intradermal injection solution [Tuberculin PPD] 0.1mL Intradermal 1 time For PPD 2nd Step Give 2nd Step PPD Day 1 and Read results Day 3 (schedule 7 days after 1st READ) 0.1mL 06/12 Active 2023 04776 98332 0 1 time Intrad ermal False Tylenol 325 mg tablet 2 tabs By Mouth Every 4 hours as needed For Pain DO NOT EXCEED 3000 MG APAP/24 Hours 2 tabs 2023 Active 2023 20712 98272 0 Every 4 hours as needed By Mouth False Tylenol 325 mg tablet 2 tabs By Mouth Every 4 hours as needed For Fever >100 DO NOT EXCEED 3000 MG APAP/24 Hours 2 tabs 2023 Active 2023 72274 42892 0 Every 4 hours as needed By Mouth False Dulcolax (bisacodyl) 10 mg rectal suppository One Suppository per rectum PRN if Milk of Magnisia ineffective. Give on day 5 of no BM 1 sup 2023 Active 2023 54727 00638 1 Daily as needed Rectal False Fleet Enema 19 gram-7 gram/118 mL Administer per rectum PRN one time if dulcolax suppository not effective. Give on day 6 of no BM 1 2023 Active 2023 32742 66255 6 Daily as needed Rectal False Milk of Magnesia 400 mg/5 mL oral suspension [Magnesium hydroxide] PRN 30ml By Mouth Daily as needed for constipation one time daily if no BM, on day 4 of no BM (PRN refer to instructions) For Constipation 30 mL 2023 Active 2023 22327 42812 6 Daily as needed By Mouth False Aspirin 81 mg chewable tablet [generic] 81mg By Mouth Once daily For aortic stenosis 81mg 2023 Active 2023 68483 49526 6 Once daily By Mouth False Potassium gluconate 600 mg (99 mg) tablet [generic] 1 tablet By Mouth Once daily For supplement 1 tablet 2023 Active 2023 37492 85256 8 Once daily By Mouth False Centrum Silver 400 mcg-250 mcg chewable tablet 1 tablet By Mouth Once daily For supplement 1 tablet 2023 Active 2023 56388 77607 9 Once daily By Mouth False PreserVisio n AREDS 2 Plus Multivit 200 mcg-15 mcg-5 mg-1 mg capsule 1 tablet By Mouth Once daily For supplement 1 tablet 2023 Active 2023 91107 71911 4 Once daily By Mouth False Problems [...] weight Temperature SpO2 Blood Sugar Pulse Respirations 13504 0 79.00 mm[Hg] - Sitting 136.00 mm[Hg] - Sitting 97.90 Tympanic 84.00/ min 18.00/min 910 10634 1 62 NI 910 34901 1 910 81573 0 79.00 mm[Hg] - Sitting 136.00 mm[Hg] - Sitting 62 NI 75.80 NI 97.90 Tympanic 98.00 % 84.00/ min 18.00/min 910 41608 0 79.00 mm[Hg] - Sitting 136.00 mm[Hg] - Sitting 97.90 Tympanic 84.00/ min 18.00/min 910 77857 9 1 45515 5 75.80 NI 91 35803 0 62.00 mm[Hg] - Sitting 110.00 mm[Hg] - Sitting 98.70 Forehead Scan 96.00 % 87.00/ min 16.00/min 911 11144 0 80.00/ min 912 84424 6 50.00 mm[Hg] - Sitting 148.00 mm[Hg] - Sitting 98.10 Tympanic 98.00 % 68.00/ min 16.00/min 60204 912 73442 3 75.00 mm[Hg] - Sitting 152.00 mm[Hg] - Sitting 914 51618 0 46.00 mm[Hg] - Sitting 127.00 mm[Hg] - Sitting 98.20 Tympanic 98.00 % 66.00/ min 18.00/min 915 73365 2 49.00 mm[Hg] - Sitting 140.00 mm[Hg] - Sitting 98.00 Tympanic 97.00 % 71.00/ min 18.00/min
--- OUTSIDE RECORDS SUMMARY | 2024-07-01 21:52 | External Medical Summary | Continuity Of Care Document ---
Author Name Unknown Address [address] [address] Organization [facility] () Care Team Providers Care Color Print Inspector Name Role Phone DO Carlton Amy Primary Care Provider [phone] Allergies Allergy Reaction Start Date End Date [...] 3 0.1 mL 06/03 Inactiv e 2023 29899 27388 0 1 time Intrad ermal False Tubersol 5 tub. unit/0.1 mL intradermal injection solution [Tuberculin PPD] 0.1mL Intradermal 1 time For PPD 2nd Step Give 2nd Step PPD Day 1 and Read results Day 3 (schedule 7 days after 1st READ) 0.1mL 06/12 Active 2023 05138 99735 0 1 time Intrad ermal False Tylenol 325 mg tablet 2 tabs By Mouth Every 4 hours as needed For Pain DO NOT EXCEED 3000 MG APAP/24 Hours 2 tabs 2023 Active 2023 64481 42399 0 Every 4 hours as needed By Mouth False Tylenol 325 mg tablet 2 tabs By Mouth Every 4 hours as needed For Fever >100 DO NOT EXCEED 3000 MG APAP/24 Hours 2 tabs 2023 Active 2023 16477 77002 0 Every 4 hours as needed By Mouth False Dulcolax (bisacodyl) 10 mg rectal suppository One Suppository per rectum PRN if Milk of Magnisia ineffective. Give on day 5 of no BM 1 sup 2023 Active 2023 02459 74570 1 Daily as needed Rectal False Fleet Enema 19 gram-7 gram/118 mL Administer per rectum PRN one time if dulcolax suppository not effective. Give on day 6 of no BM 1 2023 Active 2023 84872 85488 6 Daily as needed Rectal False Milk of Magnesia 400 mg/5 mL oral suspension [Magnesium hydroxide] PRN 30ml By Mouth Daily as needed for constipation one time daily if no BM, on day 4 of no BM (PRN refer to instructions) For Constipation 30 mL 2023 Active 2023 41249 89660 6 Daily as needed By Mouth False Aspirin 81 mg chewable tablet [generic] 81mg By Mouth Once daily For aortic stenosis 81mg 2023 Active 2023 32989 57300 6 Once daily By Mouth False Potassium gluconate 600 mg (99 mg) tablet [generic] 1 tablet By Mouth Once daily For supplement 1 tablet 2023 Active 2023 58344 98228 8 Once daily By Mouth False Centrum Silver 400 mcg-250 mcg chewable tablet 1 tablet By Mouth Once daily For supplement 1 tablet 2023 Active 2023 97786 85050 9 Once daily By Mouth False PreserVisio n AREDS 2 Plus Multivit 200 mcg-15 mcg-5 mg-1 mg capsule 1 tablet By Mouth Once daily For supplement 1 tablet 2023 Active 2023 13036 13261 4 Once daily By Mouth False Problems [...] weight Temperature SpO2 Blood Sugar Pulse Respirations 58461 0 79.00 mm[Hg] - Sitting 136.00 mm[Hg] - Sitting 97.90 Tympanic 84.00/ min 18.00/min 910 40485 1 62 NI 910 59077 1 910 46324 0 79.00 mm[Hg] - Sitting 136.00 mm[Hg] - Sitting 62 NI 75.80 NI 97.90 Tympanic 98.00 % 84.00/ min 18.00/min 910 41650 0 79.00 mm[Hg] - Sitting 136.00 mm[Hg] - Sitting 97.90 Tympanic 84.00/ min 18.00/min 910 80111 9 1 12737 5 75.80 NI 91 08629 0 62.00 mm[Hg] - Sitting 110.00 mm[Hg] - Sitting 98.70 Forehead Scan 96.00 % 87.00/ min 16.00/min 911 10479 0 80.00/ min 912 37549 6 50.00 mm[Hg] - Sitting 148.00 mm[Hg] - Sitting 98.10 Tympanic 98.00 % 68.00/ min 16.00/min 07824 912 71847 3 75.00 mm[Hg] - Sitting 152.00 mm[Hg] - Sitting 914 90536 0 46.00 mm[Hg] - Sitting 127.00 mm[Hg] - Sitting 98.20 Tympanic 98.00 % 66.00/ min 18.00/min 915 25019 2 49.00 mm[Hg] - Sitting 140.00 mm[Hg] - Sitting 98.00 Tympanic 97.00 % 71.00/ min 18.00/min
--- OUTSIDE RECORDS SUMMARY | 2024-07-01 21:52 | External Medical Summary | Continuity Of Care Document ---
Author Name Unknown Address [address] [address] Organization [facility] () Care Team Providers Care Lay Out Machine Operator Name Role Phone DO Carlton Amy Primary Care Provider [phone] Allergies Allergy Reaction Start Date End Date [...] 3 0.1 mL 06/03 Inactiv e 2023 71849 82418 0 1 time Intrad ermal False Tubersol 5 tub. unit/0.1 mL intradermal injection solution [Tuberculin PPD] 0.1mL Intradermal 1 time For PPD 2nd Step Give 2nd Step PPD Day 1 and Read results Day 3 (schedule 7 days after 1st READ) 0.1mL 06/12 Active 2023 29607 63682 0 1 time Intrad ermal False Tylenol 325 mg tablet 2 tabs By Mouth Every 4 hours as needed For Pain DO NOT EXCEED 3000 MG APAP/24 Hours 2 tabs 2023 Active 2023 48122 21159 0 Every 4 hours as needed By Mouth False Tylenol 325 mg tablet 2 tabs By Mouth Every 4 hours as needed For Fever >100 DO NOT EXCEED 3000 MG APAP/24 Hours 2 tabs 2023 Active 2023 41798 68429 0 Every 4 hours as needed By Mouth False Dulcolax (bisacodyl) 10 mg rectal suppository One Suppository per rectum PRN if Milk of Magnisia ineffective. Give on day 5 of no BM 1 sup 2023 Active 2023 91910 21072 1 Daily as needed Rectal False Fleet Enema 19 gram-7 gram/118 mL Administer per rectum PRN one time if dulcolax suppository not effective. Give on day 6 of no BM 1 2023 Active 2023 32151 91176 6 Daily as needed Rectal False Milk of Magnesia 400 mg/5 mL oral suspension [Magnesium hydroxide] PRN 30ml By Mouth Daily as needed for constipation one time daily if no BM, on day 4 of no BM (PRN refer to instructions) For Constipation 30 mL 2023 Active 2023 10860 98564 6 Daily as needed By Mouth False Aspirin 81 mg chewable tablet [generic] 81mg By Mouth Once daily For aortic stenosis 81mg 2023 Active 2023 41548 88920 6 Once daily By Mouth False Potassium gluconate 600 mg (99 mg) tablet [generic] 1 tablet By Mouth Once daily For supplement 1 tablet 2023 Active 2023 45236 00965 8 Once daily By Mouth False Centrum Silver 400 mcg-250 mcg chewable tablet 1 tablet By Mouth Once daily For supplement 1 tablet 2023 Active 2023 57798 80802 9 Once daily By Mouth False PreserVisio n AREDS 2 Plus Multivit 200 mcg-15 mcg-5 mg-1 mg capsule 1 tablet By Mouth Once daily For supplement 1 tablet 2023 Active 2023 66472 18959 4 Once daily By Mouth False Problems [...] weight Temperature SpO2 Blood Sugar Pulse Respirations 82872 0 79.00 mm[Hg] - Sitting 136.00 mm[Hg] - Sitting 97.90 Tympanic 84.00/ min 18.00/min 910 72483 1 62 NI 910 97182 1 910 52045 0 79.00 mm[Hg] - Sitting 136.00 mm[Hg] - Sitting 62 NI 75.80 NI 97.90 Tympanic 98.00 % 84.00/ min 18.00/min 910 97931 0 79.00 mm[Hg] - Sitting 136.00 mm[Hg] - Sitting 97.90 Tympanic 84.00/ min 18.00/min 910 94025 9 911 80210 5 75.80 NI 911 78268 0 62.00 mm[Hg] - Sitting 110.00 mm[Hg] - Sitting 98.70 Forehead Scan 96.00 % 87.00/ min 16.00/min 911 34363 0 80.00/ min 912 56561 6 50.00 mm[Hg] - Sitting 148.00 mm[Hg] - Sitting 98.10 Tympanic 98.00 % 68.00/ min 16.00/min 04794 912 87881 3 75.00 mm[Hg] - Sitting 152.00 mm[Hg] - Sitting 69250 914 53063 0 46.00 mm[Hg] - Sitting 127.00 mm[Hg] - Sitting 98.20 Tympanic 98.00 % 66.00/ min 18.00/min 24228 915 41013 2 49.00 mm[Hg] - Sitting 140.00 mm[Hg] - Sitting 98.00 Tympanic 97.00 % 71.00/ min 18.00/min
--- OUTSIDE RECORDS SUMMARY | 2024-07-01 21:52 | External Medical Summary | Continuity Of Care Document ---
Author Name Unknown Address [address] [address] Organization [facility] () Care Team Providers Care Forest Biometrics Professor Name Role Phone DO Carlton Amy Primary Care Provider [phone] Allergies Allergy Reaction Start Date End Date [...] 3 0.1 mL 06/03 Inactiv e 2023 21322 56041 0 1 time Intrad ermal False Tubersol 5 tub. unit/0.1 mL intradermal injection solution [Tuberculin PPD] 0.1mL Intradermal 1 time For PPD 2nd Step Give 2nd Step PPD Day 1 and Read results Day 3 (schedule 7 days after 1st READ) 0.1mL 06/12 Active 2023 53007 07830 0 1 time Intrad ermal False Tylenol 325 mg tablet 2 tabs By Mouth Every 4 hours as needed For Pain DO NOT EXCEED 3000 MG APAP/24 Hours 2 tabs 202300 Active 2023 12076 69429 0 Every 4 hours as needed By Mouth False Tylenol 325 mg tablet 2 tabs By Mouth Every 4 hours as needed For Fever >100 DO NOT EXCEED 3000 MG APAP/24 Hours 2 tabs 2023 Active 2023 70915 61510 0 Every 4 hours as needed By Mouth False Dulcolax (bisacodyl) 10 mg rectal suppository One Suppository per rectum PRN if Milk of Magnisia ineffective. Give on day 5 of no BM 1 sup 2023 Active 2023 70180 79334 1 Daily as needed Rectal False Fleet Enema 19 gram-7 gram/118 mL Administer per rectum PRN one time if dulcolax suppository not effective. Give on day 6 of no BM 1 2023 Active 2023 21346 01086 6 Daily as needed Rectal False Milk of Magnesia 400 mg/5 mL oral suspension [Magnesium hydroxide] PRN 30ml By Mouth Daily as needed for constipation one time daily if no BM, on day 4 of no BM (PRN refer to instructions) For Constipation 30 mL 2023 Active 2023 65282 33499 6 Daily as needed By Mouth False Aspirin 81 mg chewable tablet [generic] 81mg By Mouth Once daily For aortic stenosis 81mg 2023 Active 2023 58636 77955 6 Once daily By Mouth False Potassium gluconate 600 mg (99 mg) tablet [generic] 1 tablet By Mouth Once daily For supplement 1 tablet 2023 Active 2023 56600 90811 8 Once daily By Mouth False Centrum Silver 400 mcg-250 mcg chewable tablet 1 tablet By Mouth Once daily For supplement 1 tablet 2023 Active 2023 70320 12342 9 Once daily By Mouth False PreserVisio n AREDS 2 Plus Multivit 200 mcg-15 mcg-5 mg-1 mg capsule 1 tablet By Mouth Once daily For supplement 1 tablet 2023 Active 2023 96446 57808 4 Once daily By Mouth False Problems [...] weight Temperature SpO2 Blood Sugar Pulse Respirations 61355 0 79.00 mm[Hg] - Sitting 136.00 mm[Hg] - Sitting 97.90 Tympanic 84.00/ min 18.00/min 910 64090 1 62 NI 910 90000 1 910 37214 0 79.00 mm[Hg] - Sitting 136.00 mm[Hg] - Sitting 62 NI 75.80 NI 97.90 Tympanic 98.00 % 84.00/ min 18.00/min 910 01614 0 79.00 mm[Hg] - Sitting 136.00 mm[Hg] - Sitting 97.90 Tympanic 84.00/ min 18.00/min 910 98479 9 1 12502 5 75.80 NI 91 33302 0 62.00 mm[Hg] - Sitting 110.00 mm[Hg] - Sitting 98.70 Forehead Scan 96.00 % 87.00/ min 16.00/min 911 72466 0 80.00/ min 912 88098 6 50.00 mm[Hg] - Sitting 148.00 mm[Hg] - Sitting 98.10 Tympanic 98.00 % 68.00/ min 16.00/min 37419 912 11263 3 75.00 mm[Hg] - Sitting 152.00 mm[Hg] - Sitting 50046 914 03004 0 46.00 mm[Hg] - Sitting 127.00 mm[Hg] - Sitting 98.20 Tympanic 98.00 % 66.00/ min 18.00/min 915 22334 2 49.00 mm[Hg] - Sitting 140.00 mm[Hg] - Sitting 98.00 Tympanic 97.00 % 71.00/ min 18.00/min 918 85265 9 76.20 NI 918 14955 7 46.00 mm[Hg] - Sitting 125.00 mm[Hg] - Sitting 98.10 Tympanic 98.00 % 77.00/ min 16.00/min
--- OUTSIDE RECORDS SUMMARY | 2024-07-01 21:52 | External Medical Summary | Continuity Of Care Document ---
Author Name Unknown Address [address] [address] Organization [facility] () Care Team Providers Care Pig Caster Name Role Phone DO Carlton Amy Primary Care Provider [phone] Allergies Allergy Reaction Start Date End Date [...] 3 0.1 mL 06/03 Inactiv e 2023 27558 13914 0 1 time Intrad ermal False Tubersol 5 tub. unit/0.1 mL intradermal injection solution [Tuberculin PPD] 0.1mL Intradermal 1 time For PPD 2nd Step Give 2nd Step PPD Day 1 and Read results Day 3 (schedule 7 days after 1st READ) 0.1mL 06/12 Active 2023 65850 80707 0 1 time Intrad ermal False Tylenol 325 mg tablet 2 tabs By Mouth Every 4 hours as needed For Pain DO NOT EXCEED 3000 MG APAP/24 Hours 2 tabs 2023 Active 2023 16662 66668 0 Every 4 hours as needed By Mouth False Tylenol 325 mg tablet 2 tabs By Mouth Every 4 hours as needed For Fever >100 DO NOT EXCEED 3000 MG APAP/24 Hours 2 tabs 2023 Active 2023 67540 22825 0 Every 4 hours as needed By Mouth False Dulcolax (bisacodyl) 10 mg rectal suppository One Suppository per rectum PRN if Milk of Magnisia ineffective. Give on day 5 of no BM 1 sup 2023 Active 2023 82847 53455 1 Daily as needed Rectal False Fleet Enema 19 gram-7 gram/118 mL Administer per rectum PRN one time if dulcolax suppository not effective. Give on day 6 of no BM 1 2023 Active 2023 70855 36726 6 Daily as needed Rectal False Milk of Magnesia 400 mg/5 mL oral suspension [Magnesium hydroxide] PRN 30ml By Mouth Daily as needed for constipation one time daily if no BM, on day 4 of no BM (PRN refer to instructions) For Constipation 30 mL 2023 Active 2023 16435 60075 6 Daily as needed By Mouth False Aspirin 81 mg chewable tablet [generic] 81mg By Mouth Once daily For aortic stenosis 81mg 2023 Active 2023 27661 04292 6 Once daily By Mouth False Potassium gluconate 600 mg (99 mg) tablet [generic] 1 tablet By Mouth Once daily For supplement 1 tablet 2023 Active 2023 41723 87916 8 Once daily By Mouth False Centrum Silver 400 mcg-250 mcg chewable tablet 1 tablet By Mouth Once daily For supplement 1 tablet 2023 Active 2023 50416 40637 9 Once daily By Mouth False PreserVisio n AREDS 2 Plus Multivit 200 mcg-15 mcg-5 mg-1 mg capsule 1 tablet By Mouth Once daily For supplement 1 tablet 2023 Active 2023 08794 00333 4 Once daily By Mouth False Problems [...] weight Temperature SpO2 Blood Sugar Pulse Respirations 67014 0 79.00 mm[Hg] - Sitting 136.00 mm[Hg] - Sitting 97.90 Tympanic 84.00/ min 18.00/min 910 23180 1 62 NI 910 40082 1 910 01497 0 79.00 mm[Hg] - Sitting 136.00 mm[Hg] - Sitting 62 NI 75.80 NI 97.90 Tympanic 98.00 % 84.00/ min 18.00/min 910 49616 0 79.00 mm[Hg] - Sitting 136.00 mm[Hg] - Sitting 97.90 Tympanic 84.00/ min 18.00/min 910 06708 9 911 64248 5 75.80 NI 911 25639 0 62.00 mm[Hg] - Sitting 110.00 mm[Hg] - Sitting 98.70 Forehead Scan 96.00 % 87.00/ min 16.00/min 911 07327 0 80.00/ min 912 22372 6 50.00 mm[Hg] - Sitting 148.00 mm[Hg] - Sitting 98.10 Tympanic 98.00 % 68.00/ min 16.00/min 19738 912 43592 3 75.00 mm[Hg] - Sitting 152.00 mm[Hg] - Sitting 77035 914 06417 0 46.00 mm[Hg] - Sitting 127.00 mm[Hg] - Sitting 98.20 Tympanic 98.00 % 66.00/ min 18.00/min
--- OUTSIDE RECORDS SUMMARY | 2024-07-01 21:52 | External Medical Summary | Continuity Of Care Document ---
Author Name Unknown Address [address] [address] Organization [facility] () Care Team Providers Care Top Ironer Name Role Phone DO Carlton Amy Primary Care Provider [phone] Allergies Allergy Reaction Start Date End Date [...] 3 0.1 mL 06/03 Inactiv e 2023 11598 02755 0 1 time Intrad ermal False Tubersol 5 tub. unit/0.1 mL intradermal injection solution [Tuberculin PPD] 0.1mL Intradermal 1 time For PPD 2nd Step Give 2nd Step PPD Day 1 and Read results Day 3 (schedule 7 days after 1st READ) 0.1mL 06/12 Active 2023 62593 72632 0 1 time Intrad ermal False Tylenol 325 mg tablet 2 tabs By Mouth Every 4 hours as needed For Pain DO NOT EXCEED 3000 MG APAP/24 Hours 2 tabs 2023 Active 2023 94192 48295 0 Every 4 hours as needed By Mouth False Tylenol 325 mg tablet 2 tabs By Mouth Every 4 hours as needed For Fever >100 DO NOT EXCEED 3000 MG APAP/24 Hours 2 tabs 2023 Active 2023 63401 88495 0 Every 4 hours as needed By Mouth False Dulcolax (bisacodyl) 10 mg rectal suppository One Suppository per rectum PRN if Milk of Magnisia ineffective. Give on day 5 of no BM 1 sup 2023 Active 2023 00538 08501 1 Daily as needed Rectal False Fleet Enema 19 gram-7 gram/118 mL Administer per rectum PRN one time if dulcolax suppository not effective. Give on day 6 of no BM 1 2023 Active 2023 63572 80267 6 Daily as needed Rectal False Milk of Magnesia 400 mg/5 mL oral suspension [Magnesium hydroxide] PRN 30ml By Mouth Daily as needed for constipation one time daily if no BM, on day 4 of no BM (PRN refer to instructions) For Constipation 30 mL 2023 Active 2023 93982 30380 6 Daily as needed By Mouth False Aspirin 81 mg chewable tablet [generic] 81mg By Mouth Once daily For aortic stenosis 81mg 2023 Active 2023 75197 87960 6 Once daily By Mouth False Potassium gluconate 600 mg (99 mg) tablet [generic] 1 tablet By Mouth Once daily For supplement 1 tablet 2023 Active 2023 46013 51835 8 Once daily By Mouth False Centrum Silver 400 mcg-250 mcg chewable tablet 1 tablet By Mouth Once daily For supplement 1 tablet 2023 Active 2023 41716 99838 9 Once daily By Mouth False PreserVisio n AREDS 2 Plus Multivit 200 mcg-15 mcg-5 mg-1 mg capsule 1 tablet By Mouth Once daily For supplement 1 tablet 2023 Active 2023 08067 03906 4 Once daily By Mouth False Tylenol 325 mg tablet 2 tabs By Mouth Every 4 hours as needed For Pain DO NOT EXCEED 3000 MG APAP/24 Hours 2 tabs 2023 Active 2023 31002 26621 0 Every 4 hours as needed By Mouth False Aspirin 81 mg chewable tablet [generic] 81mg By Mouth Once daily For aortic stenosis 81mg 2023 Active 2023 95630 59642 6 Once daily By Mouth False Potassium gluconate 600 mg (99 mg) tablet [generic] 1 tablet By Mouth Once daily For supplement 1 tablet 2023 Active 2023 21719 35904 8 Once daily By Mouth False Centrum Silver 400 mcg-250 mcg chewable tablet 1 tablet By Mouth Once daily For supplement 1 tablet 2023 Active 2023 29379 47033 9 Once daily By Mouth False PreserVisio n AREDS 2 Plus Multivit 200 mcg-15 mcg-5 mg-1 mg capsule 1 tablet By Mouth Once daily For supplement 1 tablet 2023 Active 2023 21711 36350 4 Once daily By Mouth False Problems [...] weight Temperature SpO2 Blood Sugar Pulse Respirations 0 43081 0 79.00 mm[Hg] - Sitting 136.00 mm[Hg] - Sitting 97.90 Tympanic 84.00/ min 18.00/min 910 87779 1 62 NI 10479 910 88838 1 910 03506 0 79.00 mm[Hg] - Sitting 136.00 mm[Hg] - Sitting 62 NI 75.80 NI 97.90 Tympanic 98.00 % 84.00/ min 18.00/min 910 94422 0 79.00 mm[Hg] - Sitting 136.00 mm[Hg] - Sitting 97.90 Tympanic 84.00/ min 18.00/min 910 95163 9 1 42749 5 75.80 NI 911 10553 0 62.00 mm[Hg] - Sitting 110.00 mm[Hg] - Sitting 98.70 Forehead Scan 96.00 % 87.00/ min 16.00/min 911 83001 0 80.00/ min 50904 912 62442 6 50.00 mm[Hg] - Sitting 148.00 mm[Hg] - Sitting 98.10 Tympanic 98.00 % 68.00/ min 16.00/min 48433 912 43816 3 75.00 mm[Hg] - Sitting 152.00 mm[Hg] - Sitting 914 63684 0 46.00 mm[Hg] - Sitting 127.00 mm[Hg] - Sitting 98.20 Tympanic 98.00 % 66.00/ min 18.00/min 19662 915 29093 2 49.00 mm[Hg] - Sitting 140.00 mm[Hg] - Sitting 98.00 Tympanic 97.00 % 71.00/ min 18.00/min 19721 918 36904 9 76.20 NI 918 31486 7 46.00 mm[Hg] - Sitting 125.00 mm[Hg] - Sitting 98.10 Tympanic 98.00 % 77.00/ min 16.00/min
--- OUTSIDE RECORDS SUMMARY | 2024-07-01 21:52 | External Medical Summary | Continuity Of Care Document ---
Author Name Unknown Address [address] [address] Organization [facility] () Care Team Providers Care Site Medical Director Name Role Phone DO Carlton Amy Primary Care Provider [phone] Allergies Allergy Reaction Start Date End Date [...] 3 0.1 mL 06/03 Inactiv e 2023 86529 09731 0 1 time Intrad ermal False Tubersol 5 tub. unit/0.1 mL intradermal injection solution [Tuberculin PPD] 0.1mL Intradermal 1 time For PPD 2nd Step Give 2nd Step PPD Day 1 and Read results Day 3 (schedule 7 days after 1st READ) 0.1mL 06/12 Active 2023 15593 52607 0 1 time Intrad ermal False Tylenol 325 mg tablet 2 tabs By Mouth Every 4 hours as needed For Pain DO NOT EXCEED 3000 MG APAP/24 Hours 2 tabs 2023 Active 2023 64713 35835 0 Every 4 hours as needed By Mouth False Tylenol 325 mg tablet 2 tabs By Mouth Every 4 hours as needed For Fever >100 DO NOT EXCEED 3000 MG APAP/24 Hours 2 tabs 2023 Active 2023 83293 75532 0 Every 4 hours as needed By Mouth False Dulcolax (bisacodyl) 10 mg rectal suppository One Suppository per rectum PRN if Milk of Magnisia ineffective. Give on day 5 of no BM 1 sup 2023 Active 2023 05247 12198 1 Daily as needed Rectal False Fleet Enema 19 gram-7 gram/118 mL Administer per rectum PRN one time if dulcolax suppository not effective. Give on day 6 of no BM 1 2023 Active 2023 00787 20292 6 Daily as needed Rectal False Milk of Magnesia 400 mg/5 mL oral suspension [Magnesium hydroxide] PRN 30ml By Mouth Daily as needed for constipation one time daily if no BM, on day 4 of no BM (PRN refer to instructions) For Constipation 30 mL 2023 Active 2023 96939 68999 6 Daily as needed By Mouth False Aspirin 81 mg chewable tablet [generic] 81mg By Mouth Once daily For aortic stenosis 81mg 2023 Active 2023 82617 30542 6 Once daily By Mouth False Potassium gluconate 600 mg (99 mg) tablet [generic] 1 tablet By Mouth Once daily For supplement 1 tablet 2023 Active 2023 37123 44011 8 Once daily By Mouth False Centrum Silver 400 mcg-250 mcg chewable tablet 1 tablet By Mouth Once daily For supplement 1 tablet 2023 Active 2023 72508 55049 9 Once daily By Mouth False PreserVisio n AREDS 2 Plus Multivit 200 mcg-15 mcg-5 mg-1 mg capsule 1 tablet By Mouth Once daily For supplement 1 tablet 2023 Active 2023 63369 51360 4 Once daily By Mouth False Problems [...] weight Temperature SpO2 Blood Sugar Pulse Respirations 36629 0 79.00 mm[Hg] - Sitting 136.00 mm[Hg] - Sitting 97.90 Tympanic 84.00/ min 18.00/min 910 85367 1 62 NI 910 58317 1 910 76304 0 79.00 mm[Hg] - Sitting 136.00 mm[Hg] - Sitting 62 NI 75.80 NI 97.90 Tympanic 98.00 % 84.00/ min 18.00/min 910 60014 0 79.00 mm[Hg] - Sitting 136.00 mm[Hg] - Sitting 97.90 Tympanic 84.00/ min 18.00/min 910 75336 9 911 62288 5 75.80 NI 911 70631 0 62.00 mm[Hg] - Sitting 110.00 mm[Hg] - Sitting 98.70 Forehead Scan 96.00 % 87.00/ min 16.00/min 911 47214 0 80.00/ min 912 24402 6 50.00 mm[Hg] - Sitting 148.00 mm[Hg] - Sitting 98.10 Tympanic 98.00 % 68.00/ min 16.00/min 28246 912 91245 3 75.00 mm[Hg] - Sitting 152.00 mm[Hg] - Sitting 34603 914 65752 0 46.00 mm[Hg] - Sitting 127.00 mm[Hg] - Sitting 98.20 Tympanic 98.00 % 66.00/ min 18.00/min 21546 915 04260 2 49.00 mm[Hg] - Sitting 140.00 mm[Hg] - Sitting 98.00 Tympanic 97.00 % 71.00/ min 18.00/min
--- OUTSIDE RECORDS SUMMARY | 2024-07-01 21:53 | External Medical Summary | Continuity Of Care Document ---
Author Name Unknown Address [address] [address] Organization [facility] () Care Team Providers Care Multineedle Shirrer Name Role Phone DO Carlton Amy Primary Care Provider [phone] Allergies Allergy Reaction Start Date End Date [...] read results Day 3 0.1 mL 06/03 Active 2023 32891 01642 0 1 time Intrad ermal False Tubersol 5 tub. unit/0.1 mL intradermal injection solution [Tuberculin PPD] 0.1mL Intradermal 1 time For PPD 2nd Step Give 2nd Step PPD Day 1 and Read results Day 3 (schedule 7 days after 1st READ) 0.1mL 06/12 Active 2023 46717 00314 0 1 time Intrad ermal False Tylenol 325 mg tablet 2 tabs By Mouth Every 4 hours as needed For Pain DO NOT EXCEED 3000 MG APAP/24 Hours 2 tabs 2023 Active 2023 72468 44012 0 Every 4 hours as needed By Mouth False Tylenol 325 mg tablet 2 tabs By Mouth Every 4 hours as needed For Fever >100 DO NOT EXCEED 3000 MG APAP/24 Hours 2 tabs 2023 Active 2023 68096 23159 0 Every 4 hours as needed By Mouth False Dulcolax (bisacodyl) 10 mg rectal suppository One Suppository per rectum PRN if Milk of Magnisia ineffective. Give on day 5 of no BM 1 sup 2023 Active 2023 20096 18063 1 Daily as needed Rectal False Fleet Enema 19 gram-7 gram/118 mL Administer per rectum PRN one time if dulcolax suppository not effective. Give on day 6 of no BM 1 2023 Active 2023 15424 64834 6 Daily as needed Rectal False Milk of Magnesia 400 mg/5 mL oral suspension [Magnesium hydroxide] PRN 30ml By Mouth Daily as needed for constipation one time daily if no BM, on day 4 of no BM (PRN refer to instructions) For Constipation 30 mL 2023 Active 2023 13399 37544 6 Daily as needed By Mouth False VITAL SIGNS Date Time Diastolic blood pressure Systolic blood pressure Body height Body weight Temperature SpO2 Blood Sugar Pulse Respirations 61925 0 79.00 mm[Hg] - Sitting 136.00 mm[Hg] - Sitting 97.90 Tympanic 84.00/ min 18.00/min 910 98725 1 62 NI 910 68629 1 910 13680 0 79.00 mm[Hg] - Sitting 136.00 mm[Hg] - Sitting 62 NI 75.80 NI 97.90 Tympanic 98.00 % 84.00/ min 18.00/min 910 46973 0 79.00 mm[Hg] - Sitting 136.00 mm[Hg] - Sitting 97.90 Tympanic 84.00/ min 18.00/min
--- OUTSIDE RECORDS SUMMARY | 2024-07-01 21:53 | External Medical Summary | Continuity Of Care Document ---
Author Name Unknown Address [address] [address] Organization [facility] () Care Team Providers Care Elevator Starter Name Role Phone DO Carlton Amy Primary Care Provider [phone] Allergies Allergy Reaction Start Date End Date [...] 3 0.1 mL 06/03 Inactiv e 2023 65292 85546 0 1 time Intrad ermal False Tubersol 5 tub. unit/0.1 mL intradermal injection solution [Tuberculin PPD] 0.1mL Intradermal 1 time For PPD 2nd Step Give 2nd Step PPD Day 1 and Read results Day 3 (schedule 7 days after 1st READ) 0.1mL 06/12 Active 2023 73407 88280 0 1 time Intrad ermal False Tylenol 325 mg tablet 2 tabs By Mouth Every 4 hours as needed For Pain DO NOT EXCEED 3000 MG APAP/24 Hours 2 tabs 202300 Active 2023 52163 43771 0 Every 4 hours as needed By Mouth False Tylenol 325 mg tablet 2 tabs By Mouth Every 4 hours as needed For Fever >100 DO NOT EXCEED 3000 MG APAP/24 Hours 2 tabs 202300 Active 2023 60365 37539 0 Every 4 hours as needed By Mouth False Dulcolax (bisacodyl) 10 mg rectal suppository One Suppository per rectum PRN if Milk of Magnisia ineffective. Give on day 5 of no BM 1 sup 2023 Active 2023 25088 98160 1 Daily as needed Rectal False Fleet Enema 19 gram-7 gram/118 mL Administer per rectum PRN one time if dulcolax suppository not effective. Give on day 6 of no BM 1 2023 Active 2023 66753 07801 6 Daily as needed Rectal False Milk of Magnesia 400 mg/5 mL oral suspension [Magnesium hydroxide] PRN 30ml By Mouth Daily as needed for constipation one time daily if no BM, on day 4 of no BM (PRN refer to instructions) For Constipation 30 mL 2023 Active 2023 92453 39969 6 Daily as needed By Mouth False Aspirin 81 mg chewable tablet [generic] 81mg By Mouth Once daily For aortic stenosis 81mg 2023 Active 2023 49037 95081 6 Once daily By Mouth False Potassium gluconate 600 mg (99 mg) tablet [generic] 1 tablet By Mouth Once daily For supplement 1 tablet 2023 Active 2023 69037 36837 8 Once daily By Mouth False Centrum Silver 400 mcg-250 mcg chewable tablet 1 tablet By Mouth Once daily For supplement 1 tablet 2023 Active 2023 59219 41584 9 Once daily By Mouth False PreserVisio n AREDS 2 Plus Multivit 200 mcg-15 mcg-5 mg-1 mg capsule 1 tablet By Mouth Once daily For supplement 1 tablet 2023 Active 2023 18921 19357 4 Once daily By Mouth False Problems [...] weight Temperature SpO2 Blood Sugar Pulse Respirations 37782 0 79.00 mm[Hg] - Sitting 136.00 mm[Hg] - Sitting 97.90 Tympanic 84.00/ min 18.00/min 910 12627 1 62 NI 910 67667 1 910 49301 0 79.00 mm[Hg] - Sitting 136.00 mm[Hg] - Sitting 62 NI 75.80 NI 97.90 Tympanic 98.00 % 84.00/ min 18.00/min 910 82047 0 79.00 mm[Hg] - Sitting 136.00 mm[Hg] - Sitting 97.90 Tympanic 84.00/ min 18.00/min 910 96561 9 911 66945 5 75.80 NI 911 38300 0 62.00 mm[Hg] - Sitting 110.00 mm[Hg] - Sitting 98.70 Forehead Scan 96.00 % 87.00/ min 16.00/min 911 54725 0 80.00/ min 912 56999 6 50.00 mm[Hg] - Sitting 148.00 mm[Hg] - Sitting 98.10 Tympanic 98.00 % 68.00/ min 16.00/min 50045 912 70282 3 75.00 mm[Hg] - Sitting 152.00 mm[Hg] - Sitting
--- OUTSIDE RECORDS SUMMARY | 2024-07-01 21:53 | External Medical Summary | Continuity Of Care Document ---
Author Name Unknown Address [address] [address] Organization [facility] () Care Team Providers Care Bottle Machine Operator Name Role Phone DO Carlton Amy Primary Care Provider [phone] Allergies Allergy Reaction Start Date End Date [...] Day 3 0.1 mL 06/03 Active 2023 86815 65756 0 1 time Intrad ermal False Tubersol 5 tub. unit/0.1 mL intradermal injection solution [Tuberculin PPD] 0.1mL Intradermal 1 time For PPD 2nd Step Give 2nd Step PPD Day 1 and Read results Day 3 (schedule 7 days after 1st READ) 0.1mL 06/12 Active 2023 39612 97589 0 1 time Intrad ermal False Tylenol 325 mg tablet 2 tabs By Mouth Every 4 hours as needed For Pain DO NOT EXCEED 3000 MG APAP/24 Hours 2 tabs 2023 Active 2023 62735 34937 0 Every 4 hours as needed By Mouth False Tylenol 325 mg tablet 2 tabs By Mouth Every 4 hours as needed For Fever >100 DO NOT EXCEED 3000 MG APAP/24 Hours 2 tabs 2023 Active 2023 36304 12845 0 Every 4 hours as needed By Mouth False Dulcolax (bisacodyl) 10 mg rectal suppository One Suppository per rectum PRN if Milk of Magnisia ineffective. Give on day 5 of no BM 1 sup 2023 Active 2023 64304 34605 1 Daily as needed Rectal False Fleet Enema 19 gram-7 gram/118 mL Administer per rectum PRN one time if dulcolax suppository not effective. Give on day 6 of no BM 1 2023 Active 2023 13006 82299 6 Daily as needed Rectal False Milk of Magnesia 400 mg/5 mL oral suspension [Magnesium hydroxide] PRN 30ml By Mouth Daily as needed for constipation one time daily if no BM, on day 4 of no BM (PRN refer to instructions) For Constipation 30 mL 2023 Active 2023 49967 73425 6 Daily as needed By Mouth False Aspirin 81 mg chewable tablet [generic] 81mg By Mouth Once daily For aortic stenosis 81mg 2023 Active 2023 91940 51514 6 Once daily By Mouth False Potassium gluconate 600 mg (99 mg) tablet [generic] 1 tablet By Mouth Once daily For supplement 1 tablet 2023 Active 2023 28355 55660 8 Once daily By Mouth False Centrum Silver 400 mcg-250 mcg chewable tablet 1 tablet By Mouth Once daily For supplement 1 tablet 2023 Active 2023 24592 21554 9 Once daily By Mouth False PreserVisio n AREDS 2 Plus Multivit 200 mcg-15 mcg-5 mg-1 mg capsule 1 tablet By Mouth Once daily For supplement 1 tablet 2023 Active 2023 28788 72398 4 Once daily By Mouth False Problems [...] weight Temperature SpO2 Blood Sugar Pulse Respirations 27417 0 79.00 mm[Hg] - Sitting 136.00 mm[Hg] - Sitting 97.90 Tympanic 84.00/ min 18.00/min 910 70581 1 62 NI 910 15078 1 910 95127 0 79.00 mm[Hg] - Sitting 136.00 mm[Hg] - Sitting 62 NI 75.80 NI 97.90 Tympanic 98.00 % 84.00/ min 18.00/min 910 87521 0 79.00 mm[Hg] - Sitting 136.00 mm[Hg] - Sitting 97.90 Tympanic 84.00/ min 18.00/min 910 36350 9 1 23215 5 75.80 NI 91 83770 0 62.00 mm[Hg] - Sitting 110.00 mm[Hg] - Sitting 98.70 Forehead Scan 96.00 % 87.00/ min 16.00/min 911 07589 0 80.00/ min 912 11663 6 50.00 mm[Hg] - Sitting 148.00 mm[Hg] - Sitting 98.10 Tympanic 98.00 % 68.00/ min 16.00/min 70683 912 55031 3 75.00 mm[Hg] - Sitting 152.00 mm[Hg] - Sitting
--- OUTSIDE RECORDS SUMMARY | 2024-07-01 21:53 | External Medical Summary | Continuity Of Care Document ---
Author Name Unknown Address [address] [address] Organization [facility] () Care Team Providers Care Automotive Software Engineer Name Role Phone DO Carlton Amy Primary Care Provider [phone] Allergies Allergy Reaction Start Date End Date [...] Day 3 0.1 mL 06/03 Active 2023 78232 26093 0 1 time Intrad ermal False Tubersol 5 tub. unit/0.1 mL intradermal injection solution [Tuberculin PPD] 0.1mL Intradermal 1 time For PPD 2nd Step Give 2nd Step PPD Day 1 and Read results Day 3 (schedule 7 days after 1st READ) 0.1mL 06/12 Active 2023 49600 59140 0 1 time Intrad ermal False Tylenol 325 mg tablet 2 tabs By Mouth Every 4 hours as needed For Pain DO NOT EXCEED 3000 MG APAP/24 Hours 2 tabs 2023 Active 2023 23994 61946 0 Every 4 hours as needed By Mouth False Tylenol 325 mg tablet 2 tabs By Mouth Every 4 hours as needed For Fever >100 DO NOT EXCEED 3000 MG APAP/24 Hours 2 tabs 2023 Active 2023 06885 49710 0 Every 4 hours as needed By Mouth False Dulcolax (bisacodyl) 10 mg rectal suppository One Suppository per rectum PRN if Milk of Magnisia ineffective. Give on day 5 of no BM 1 sup 2023 Active 2023 14881 61082 1 Daily as needed Rectal False Fleet Enema 19 gram-7 gram/118 mL Administer per rectum PRN one time if dulcolax suppository not effective. Give on day 6 of no BM 1 2023 Active 2023 34990 69430 6 Daily as needed Rectal False Milk of Magnesia 400 mg/5 mL oral suspension [Magnesium hydroxide] PRN 30ml By Mouth Daily as needed for constipation one time daily if no BM, on day 4 of no BM (PRN refer to instructions) For Constipation 30 mL 2023 Active 2023 57304 67403 6 Daily as needed By Mouth False Aspirin 81 mg chewable tablet [generic] 81mg By Mouth Once daily For aortic stenosis 81mg 2023 Active 2023 68863 73211 6 Once daily By Mouth False Potassium gluconate 600 mg (99 mg) tablet [generic] 1 tablet By Mouth Once daily For supplement 1 tablet 2023 Active 2023 30665 61262 8 Once daily By Mouth False Centrum Silver 400 mcg-250 mcg chewable tablet 1 tablet By Mouth Once daily For supplement 1 tablet 2023 Active 2023 89982 45433 9 Once daily By Mouth False PreserVisio n AREDS 2 Plus Multivit 200 mcg-15 mcg-5 mg-1 mg capsule 1 tablet By Mouth Once daily For supplement 1 tablet 2023 Active 2023 56796 23858 4 Once daily By Mouth False VITAL SIGNS Date Time Diastolic blood pressure Systolic blood pressure Body height Body weight Temperature SpO2 Blood Sugar Pulse Respirations 910 51386 0 79.00 mm[Hg] - Sitting 136.00 mm[Hg] - Sitting 97.90 Tympanic 84.00/ min 18.00/min 910 19717 1 62 NI 910 29349 1 0 24882 0 79.00 mm[Hg] - Sitting 136.00 mm[Hg] - Sitting 62 NI 75.80 NI 97.90 Tympanic 98.00 % 84.00/ min 18.00/min 910 04508 0 79.00 mm[Hg] - Sitting 136.00 mm[Hg] - Sitting 97.90 Tympanic 84.00/ min 18.00/min 910 24198 9 45109 911 86622 5 75.80 NI
--- OUTSIDE RECORDS SUMMARY | 2024-07-01 21:53 | External Medical Summary | Continuity Of Care Document ---
Author Name Unknown Address [address] [address] Organization [facility] () Care Team Providers Care Power Checker Name Role Phone DO Carlton Amy Primary Care Provider [phone] Allergies Allergy Reaction Start Date End Date [...] Day 3 0.1 mL 06/03 Active 2023 55551 14504 0 1 time Intrad ermal False Tubersol 5 tub. unit/0.1 mL intradermal injection solution [Tuberculin PPD] 0.1mL Intradermal 1 time For PPD 2nd Step Give 2nd Step PPD Day 1 and Read results Day 3 (schedule 7 days after 1st READ) 0.1mL 06/12 Active 2023 14876 86874 0 1 time Intrad ermal False Tylenol 325 mg tablet 2 tabs By Mouth Every 4 hours as needed For Pain DO NOT EXCEED 3000 MG APAP/24 Hours 2 tabs 2023 Active 2023 47646 69673 0 Every 4 hours as needed By Mouth False Tylenol 325 mg tablet 2 tabs By Mouth Every 4 hours as needed For Fever >100 DO NOT EXCEED 3000 MG APAP/24 Hours 2 tabs 2023 Active 2023 93435 67712 0 Every 4 hours as needed By Mouth False Dulcolax (bisacodyl) 10 mg rectal suppository One Suppository per rectum PRN if Milk of Magnisia ineffective. Give on day 5 of no BM 1 sup 2023 Active 2023 19635 17707 1 Daily as needed Rectal False Fleet Enema 19 gram-7 gram/118 mL Administer per rectum PRN one time if dulcolax suppository not effective. Give on day 6 of no BM 1 2023 Active 2023 47243 61285 6 Daily as needed Rectal False Milk of Magnesia 400 mg/5 mL oral suspension [Magnesium hydroxide] PRN 30ml By Mouth Daily as needed for constipation one time daily if no BM, on day 4 of no BM (PRN refer to instructions) For Constipation 30 mL 2023 Active 2023 58429 16569 6 Daily as needed By Mouth False Aspirin 81 mg chewable tablet [generic] 81mg By Mouth Once daily For aortic stenosis 81mg 2023 Active 2023 65006 34951 6 Once daily By Mouth False Potassium gluconate 600 mg (99 mg) tablet [generic] 1 tablet By Mouth Once daily For supplement 1 tablet 2023 Active 2023 19656 72311 8 Once daily By Mouth False Centrum Silver 400 mcg-250 mcg chewable tablet 1 tablet By Mouth Once daily For supplement 1 tablet 2023 Active 2023 87536 97281 9 Once daily By Mouth False PreserVisio n AREDS 2 Plus Multivit 200 mcg-15 mcg-5 mg-1 mg capsule 1 tablet By Mouth Once daily For supplement 1 tablet 2023 Active 2023 88599 05817 4 Once daily By Mouth False VITAL SIGNS Date Time Diastolic blood pressure Systolic blood pressure Body height Body weight Temperature SpO2 Blood Sugar Pulse Respirations 910 28743 0 79.00 mm[Hg] - Sitting 136.00 mm[Hg] - Sitting 97.90 Tympanic 84.00/ min 18.00/min 910 38541 1 62 NI 910 93502 1 910 30519 0 79.00 mm[Hg] - Sitting 136.00 mm[Hg] - Sitting 62 NI 75.80 NI 97.90 Tympanic 98.00 % 84.00/ min 18.00/min 0 73370 0 79.00 mm[Hg] - Sitting 136.00 mm[Hg] - Sitting 97.90 Tympanic 84.00/ min 18.00/min
--- OUTSIDE RECORDS SUMMARY | 2024-07-01 21:53 | External Medical Summary | Continuity Of Care Document ---
Author Name Unknown Address [address] [address] Organization [facility] () Care Team Providers Care Impregnator Electrolytic Capacitors Name Role Phone DO Carlton Amy Primary Care Provider [phone] Allergies Allergy Reaction Start Date End Date [...] Day 3 0.1 mL 06/03 Active 2023 67171 58796 0 1 time Intrad ermal False Tubersol 5 tub. unit/0.1 mL intradermal injection solution [Tuberculin PPD] 0.1mL Intradermal 1 time For PPD 2nd Step Give 2nd Step PPD Day 1 and Read results Day 3 (schedule 7 days after 1st READ) 0.1mL 06/12 Active 2023 87193 58069 0 1 time Intrad ermal False Tylenol 325 mg tablet 2 tabs By Mouth Every 4 hours as needed For Pain DO NOT EXCEED 3000 MG APAP/24 Hours 2 tabs 2023 Active 2023 92449 24865 0 Every 4 hours as needed By Mouth False Tylenol 325 mg tablet 2 tabs By Mouth Every 4 hours as needed For Fever >100 DO NOT EXCEED 3000 MG APAP/24 Hours 2 tabs 2023 Active 2023 31020 12418 0 Every 4 hours as needed By Mouth False Dulcolax (bisacodyl) 10 mg rectal suppository One Suppository per rectum PRN if Milk of Magnisia ineffective. Give on day 5 of no BM 1 sup 2023 Active 2023 32219 15877 1 Daily as needed Rectal False Fleet Enema 19 gram-7 gram/118 mL Administer per rectum PRN one time if dulcolax suppository not effective. Give on day 6 of no BM 1 2023 Active 2023 91415 97585 6 Daily as needed Rectal False Milk of Magnesia 400 mg/5 mL oral suspension [Magnesium hydroxide] PRN 30ml By Mouth Daily as needed for constipation one time daily if no BM, on day 4 of no BM (PRN refer to instructions) For Constipation 30 mL 2023 Active 2023 34490 00839 6 Daily as needed By Mouth False Aspirin 81 mg chewable tablet [generic] 81mg By Mouth Once daily For aortic stenosis 81mg 2023 Active 2023 36389 57902 6 Once daily By Mouth False Potassium gluconate 600 mg (99 mg) tablet [generic] 1 tablet By Mouth Once daily For supplement 1 tablet 2023 Active 2023 28830 52566 8 Once daily By Mouth False Centrum Silver 400 mcg-250 mcg chewable tablet 1 tablet By Mouth Once daily For supplement 1 tablet 2023 Active 2023 62963 11205 9 Once daily By Mouth False PreserVisio n AREDS 2 Plus Multivit 200 mcg-15 mcg-5 mg-1 mg capsule 1 tablet By Mouth Once daily For supplement 1 tablet 2023 Active 2023 63562 68319 4 Once daily By Mouth False VITAL SIGNS Date Time Diastolic blood pressure Systolic blood pressure Body height Body weight Temperature SpO2 Blood Sugar Pulse Respirations 910 11746 0 79.00 mm[Hg] - Sitting 136.00 mm[Hg] - Sitting 97.90 Tympanic 84.00/ min 18.00/min 910 77345 1 62 NI 910 [id number] 1 910 53719 0 79.00 mm[Hg] - Sitting 136.00 mm[Hg] - Sitting 62 NI 75.80 NI 97.90 Tympanic 98.00 % 84.00/ min 18.00/min 0 29285 0 79.00 mm[Hg] - Sitting 136.00 mm[Hg] - Sitting 97.90 Tympanic 84.00/ min 18.00/min
--- OUTSIDE RECORDS SUMMARY | 2024-07-01 21:53 | External Medical Summary | Continuity Of Care Document ---
Author Name Unknown Address [address] [address] Organization [facility] () Care Team Providers Care General Neurologist Name Role Phone DO Carlton Amy Primary Care Provider [phone] Allergies Allergy Reaction Start Date End Date [...] Day 3 0.1 mL 06/03 Active 2023 32608 81094 0 1 time Intrad ermal False Tubersol 5 tub. unit/0.1 mL intradermal injection solution [Tuberculin PPD] 0.1mL Intradermal 1 time For PPD 2nd Step Give 2nd Step PPD Day 1 and Read results Day 3 (schedule 7 days after 1st READ) 0.1mL 06/12 Active 2023 43244 13581 0 1 time Intrad ermal False Tylenol 325 mg tablet 2 tabs By Mouth Every 4 hours as needed For Pain DO NOT EXCEED 3000 MG APAP/24 Hours 2 tabs 2023 Active 2023 33393 44474 0 Every 4 hours as needed By Mouth False Tylenol 325 mg tablet 2 tabs By Mouth Every 4 hours as needed For Fever >100 DO NOT EXCEED 3000 MG APAP/24 Hours 2 tabs 2023 Active 2023 23801 67597 0 Every 4 hours as needed By Mouth False Dulcolax (bisacodyl) 10 mg rectal suppository One Suppository per rectum PRN if Milk of Magnisia ineffective. Give on day 5 of no BM 1 sup 2023 Active 2023 56879 51551 1 Daily as needed Rectal False Fleet Enema 19 gram-7 gram/118 mL Administer per rectum PRN one time if dulcolax suppository not effective. Give on day 6 of no BM 1 2023 Active 2023 74906 54214 6 Daily as needed Rectal False Milk of Magnesia 400 mg/5 mL oral suspension [Magnesium hydroxide] PRN 30ml By Mouth Daily as needed for constipation one time daily if no BM, on day 4 of no BM (PRN refer to instructions) For Constipation 30 mL 2023 Active 2023 25117 81626 6 Daily as needed By Mouth False Aspirin 81 mg chewable tablet [generic] 81mg By Mouth Once daily For aortic stenosis 81mg 2023 Active 2023 64104 08708 6 Once daily By Mouth False Potassium gluconate 600 mg (99 mg) tablet [generic] 1 tablet By Mouth Once daily For supplement 1 tablet 2023 Active 2023 11648 11105 8 Once daily By Mouth False Centrum Silver 400 mcg-250 mcg chewable tablet 1 tablet By Mouth Once daily For supplement 1 tablet 2023 Active 2023 95151 61365 9 Once daily By Mouth False PreserVisio n AREDS 2 Plus Multivit 200 mcg-15 mcg-5 mg-1 mg capsule 1 tablet By Mouth Once daily For supplement 1 tablet 2023 Active 2023 36784 01165 4 Once daily By Mouth False Problems Code Description Start Date End Date Status E43. Unspecified severe protein-calorie malnutrition 05/31/2024 Active VITAL SIGNS Date Time Diastolic blood pressure Systolic blood pressure Body height Body weight Temperature SpO2 Blood Sugar Pulse Respirations 84517 910 94408 0 79.00 mm[Hg] - Sitting 136.00 mm[Hg] - Sitting 97.90 Tympanic 84.00/ min 18.00/min 81797 910 00975 1 62 NI 31636 910 71890 1 25258 910 94875 0 79.00 mm[Hg] - Sitting 136.00 mm[Hg] - Sitting 62 NI 75.80 NI 97.90 Tympanic 98.00 % 84.00/ min 18.00/min 42094 910 53914 0 79.00 mm[Hg] - Sitting 136.00 mm[Hg] - Sitting 97.90 Tympanic 84.00/ min 18.00/min 67794 910 92276 9 [id number] 911 07851 5 75.80 NI 79621 911 04422 0 62.00 mm[Hg] - Sitting 110.00 mm[Hg] - Sitting 98.70 Forehead Scan 96.00 % 87.00/ min 16.00/min 93948 911 00237 0 80.00/ min
--- OUTSIDE RECORDS SUMMARY | 2024-07-01 21:53 | External Medical Summary | Continuity Of Care Document ---
Author Name Unknown Address [address] [address] Organization [facility] () Care Team Providers Care Propagator Laborer Name Role Phone DO Carlton Amy Primary Care Provider [phone] Allergies Allergy Reaction Start Date End Date [...] Day 3 0.1 mL 06/03 Active 2023 98239 40382 0 1 time Intrad ermal False Tubersol 5 tub. unit/0.1 mL intradermal injection solution [Tuberculin PPD] 0.1mL Intradermal 1 time For PPD 2nd Step Give 2nd Step PPD Day 1 and Read results Day 3 (schedule 7 days after 1st READ) 0.1mL 06/12 Active 2023 34498 84545 0 1 time Intrad ermal False Tylenol 325 mg tablet 2 tabs By Mouth Every 4 hours as needed For Pain DO NOT EXCEED 3000 MG APAP/24 Hours 2 tabs 2023 Active 2023 67670 68491 0 Every 4 hours as needed By Mouth False Tylenol 325 mg tablet 2 tabs By Mouth Every 4 hours as needed For Fever >100 DO NOT EXCEED 3000 MG APAP/24 Hours 2 tabs 2023 Active 2023 28080 97048 0 Every 4 hours as needed By Mouth False Dulcolax (bisacodyl) 10 mg rectal suppository One Suppository per rectum PRN if Milk of Magnisia ineffective. Give on day 5 of no BM 1 sup 2023 Active 2023 38326 60641 1 Daily as needed Rectal False Fleet Enema 19 gram-7 gram/118 mL Administer per rectum PRN one time if dulcolax suppository not effective. Give on day 6 of no BM 1 2023 Active 2023 06689 21797 6 Daily as needed Rectal False Milk of Magnesia 400 mg/5 mL oral suspension [Magnesium hydroxide] PRN 30ml By Mouth Daily as needed for constipation one time daily if no BM, on day 4 of no BM (PRN refer to instructions) For Constipation 30 mL 2023 Active 2023 04273 62337 6 Daily as needed By Mouth False Aspirin 81 mg chewable tablet [generic] 81mg By Mouth Once daily For aortic stenosis 81mg 2023 Active 2023 11893 39076 6 Once daily By Mouth False Potassium gluconate 600 mg (99 mg) tablet [generic] 1 tablet By Mouth Once daily For supplement 1 tablet 2023 Active 2023 93757 63054 8 Once daily By Mouth False Centrum Silver 400 mcg-250 mcg chewable tablet 1 tablet By Mouth Once daily For supplement 1 tablet 2023 Active 2023 74613 72865 9 Once daily By Mouth False PreserVisio n AREDS 2 Plus Multivit 200 mcg-15 mcg-5 mg-1 mg capsule 1 tablet By Mouth Once daily For supplement 1 tablet 2023 Active 2023 49100 64571 4 Once daily By Mouth False Problems Code Description Start Date End Date Status E43. Unspecified severe protein-calorie malnutrition 05/31/2024 Active VITAL SIGNS Date Time Diastolic blood pressure Systolic blood pressure Body height Body weight Temperature SpO2 Blood Sugar Pulse Respirations 81137 910 63351 0 79.00 mm[Hg] - Sitting 136.00 mm[Hg] - Sitting 97.90 Tympanic 84.00/ min 18.00/min 69984 910 27161 1 62 NI 55352 910 86012 1 05743 910 08914 0 79.00 mm[Hg] - Sitting 136.00 mm[Hg] - Sitting 62 NI 75.80 NI 97.90 Tympanic 98.00 % 84.00/ min 18.00/min 54739 910 87051 0 79.00 mm[Hg] - Sitting 136.00 mm[Hg] - Sitting 97.90 Tympanic 84.00/ min 18.00/min 81651 910 00999 9 [id number] 911 48368 5 75.80 NI 75359 911 84200 0 62.00 mm[Hg] - Sitting 110.00 mm[Hg] - Sitting 98.70 Forehead Scan 96.00 % 87.00/ min 16.00/min 75996 911 32618 0 80.00/ min
--- OUTSIDE RECORDS SUMMARY | 2024-07-01 21:53 | External Medical Summary | Continuity Of Care Document ---
Author Name Unknown Address [address] [address] Organization [facility] () Care Team Providers Care Glass Grinder Name Role Phone DO Carlton Amy Primary Care Provider [phone] Allergies Allergy Reaction Start Date End Date [...] Day 3 0.1 mL 06/03 Active 2023 55387 51858 0 1 time Intrad ermal False Tubersol 5 tub. unit/0.1 mL intradermal injection solution [Tuberculin PPD] 0.1mL Intradermal 1 time For PPD 2nd Step Give 2nd Step PPD Day 1 and Read results Day 3 (schedule 7 days after 1st READ) 0.1mL 06/12 Active 2023 39647 32216 0 1 time Intrad ermal False Tylenol 325 mg tablet 2 tabs By Mouth Every 4 hours as needed For Pain DO NOT EXCEED 3000 MG APAP/24 Hours 2 tabs 2023 Active 2023 91293 36485 0 Every 4 hours as needed By Mouth False Tylenol 325 mg tablet 2 tabs By Mouth Every 4 hours as needed For Fever >100 DO NOT EXCEED 3000 MG APAP/24 Hours 2 tabs 2023 Active 2023 68195 29593 0 Every 4 hours as needed By Mouth False Dulcolax (bisacodyl) 10 mg rectal suppository One Suppository per rectum PRN if Milk of Magnisia ineffective. Give on day 5 of no BM 1 sup 2023 Active 2023 48384 51375 1 Daily as needed Rectal False Fleet Enema 19 gram-7 gram/118 mL Administer per rectum PRN one time if dulcolax suppository not effective. Give on day 6 of no BM 1 2023 Active 2023 47634 59623 6 Daily as needed Rectal False Milk of Magnesia 400 mg/5 mL oral suspension [Magnesium hydroxide] PRN 30ml By Mouth Daily as needed for constipation one time daily if no BM, on day 4 of no BM (PRN refer to instructions) For Constipation 30 mL 2023 Active 2023 64600 80603 6 Daily as needed By Mouth False Aspirin 81 mg chewable tablet [generic] 81mg By Mouth Once daily For aortic stenosis 81mg 2023 Active 2023 51054 30073 6 Once daily By Mouth False Potassium gluconate 600 mg (99 mg) tablet [generic] 1 tablet By Mouth Once daily For supplement 1 tablet 2023 Active 2023 96587 77135 8 Once daily By Mouth False Centrum Silver 400 mcg-250 mcg chewable tablet 1 tablet By Mouth Once daily For supplement 1 tablet 2023 Active 2023 54275 31011 9 Once daily By Mouth False PreserVisio n AREDS 2 Plus Multivit 200 mcg-15 mcg-5 mg-1 mg capsule 1 tablet By Mouth Once daily For supplement 1 tablet 2023 Active 2023 87765 83107 4 Once daily By Mouth False VITAL SIGNS Date Time Diastolic blood pressure Systolic blood pressure Body height Body weight Temperature SpO2 Blood Sugar Pulse Respirations 910 50135 0 79.00 mm[Hg] - Sitting 136.00 mm[Hg] - Sitting 97.90 Tympanic 84.00/ min 18.00/min 910 27505 1 62 NI 910 73255 1 0 96887 0 79.00 mm[Hg] - Sitting 136.00 mm[Hg] - Sitting 62 NI 75.80 NI 97.90 Tympanic 98.00 % 84.00/ min 18.00/min 0 89784 0 79.00 mm[Hg] - Sitting 136.00 mm[Hg] - Sitting 97.90 Tympanic 84.00/ min 18.00/min 0 24008 9
--- OUTSIDE RECORDS SUMMARY | 2024-07-01 21:53 | External Medical Summary | Continuity Of Care Document ---
Author Name Unknown Address [address] [address] Organization [facility] () Care Team Providers Care Street Sweeper Operator Name Role Phone DO Carlton Amy Primary Care Provider [phone] Allergies Allergy Reaction Start Date End Date [...] 3 0.1 mL 06/03 Inactiv e 2023 37003 23928 0 1 time Intrad ermal False Tubersol 5 tub. unit/0.1 mL intradermal injection solution [Tuberculin PPD] 0.1mL Intradermal 1 time For PPD 2nd Step Give 2nd Step PPD Day 1 and Read results Day 3 (schedule 7 days after 1st READ) 0.1mL 06/12 Active 2023 09335 95704 0 1 time Intrad ermal False Tylenol 325 mg tablet 2 tabs By Mouth Every 4 hours as needed For Pain DO NOT EXCEED 3000 MG APAP/24 Hours 2 tabs 202300 Active 2023 84384 72217 0 Every 4 hours as needed By Mouth False Tylenol 325 mg tablet 2 tabs By Mouth Every 4 hours as needed For Fever >100 DO NOT EXCEED 3000 MG APAP/24 Hours 2 tabs 202300 Active 2023 51063 93052 0 Every 4 hours as needed By Mouth False Dulcolax (bisacodyl) 10 mg rectal suppository One Suppository per rectum PRN if Milk of Magnisia ineffective. Give on day 5 of no BM 1 sup 2023 Active 2023 64905 95483 1 Daily as needed Rectal False Fleet Enema 19 gram-7 gram/118 mL Administer per rectum PRN one time if dulcolax suppository not effective. Give on day 6 of no BM 1 2023 Active 2023 32505 58450 6 Daily as needed Rectal False Milk of Magnesia 400 mg/5 mL oral suspension [Magnesium hydroxide] PRN 30ml By Mouth Daily as needed for constipation one time daily if no BM, on day 4 of no BM (PRN refer to instructions) For Constipation 30 mL 2023 Active 2023 03775 95094 6 Daily as needed By Mouth False Aspirin 81 mg chewable tablet [generic] 81mg By Mouth Once daily For aortic stenosis 81mg 2023 Active 2023 48066 14139 6 Once daily By Mouth False Potassium gluconate 600 mg (99 mg) tablet [generic] 1 tablet By Mouth Once daily For supplement 1 tablet 2023 Active 2023 94495 82782 8 Once daily By Mouth False Centrum Silver 400 mcg-250 mcg chewable tablet 1 tablet By Mouth Once daily For supplement 1 tablet 2023 Active 2023 34785 70547 9 Once daily By Mouth False PreserVisio n AREDS 2 Plus Multivit 200 mcg-15 mcg-5 mg-1 mg capsule 1 tablet By Mouth Once daily For supplement 1 tablet 2023 Active 2023 49860 79617 4 Once daily By Mouth False Problems [...] weight Temperature SpO2 Blood Sugar Pulse Respirations 95242 0 79.00 mm[Hg] - Sitting 136.00 mm[Hg] - Sitting 97.90 Tympanic 84.00/ min 18.00/min 910 30615 1 62 NI 910 54002 1 910 80651 0 79.00 mm[Hg] - Sitting 136.00 mm[Hg] - Sitting 62 NI 75.80 NI 97.90 Tympanic 98.00 % 84.00/ min 18.00/min 910 87754 0 79.00 mm[Hg] - Sitting 136.00 mm[Hg] - Sitting 97.90 Tympanic 84.00/ min 18.00/min 910 14474 9 911 13232 5 75.80 NI 911 76415 0 62.00 mm[Hg] - Sitting 110.00 mm[Hg] - Sitting 98.70 Forehead Scan 96.00 % 87.00/ min 16.00/min 911 45810 0 80.00/ min 912 33115 6 50.00 mm[Hg] - Sitting 148.00 mm[Hg] - Sitting 98.10 Tympanic 98.00 % 68.00/ min 16.00/min 74884 912 13930 3 75.00 mm[Hg] - Sitting 152.00 mm[Hg] - Sitting
--- OUTSIDE RECORDS SUMMARY | 2024-07-01 21:53 | External Medical Summary | Continuity Of Care Document ---
Author Name Unknown Address [address] [address] Organization [facility] () Care Team Providers Care Dredge Deckhand Name Role Phone DO Carlton Amy Primary Care Provider [phone] Allergies Allergy Reaction Start Date End Date [...] Day 3 0.1 mL 06/03 Active 2023 24072 63590 0 1 time Intrad ermal False Tubersol 5 tub. unit/0.1 mL intradermal injection solution [Tuberculin PPD] 0.1mL Intradermal 1 time For PPD 2nd Step Give 2nd Step PPD Day 1 and Read results Day 3 (schedule 7 days after 1st READ) 0.1mL 06/12 Active 2023 60677 12343 0 1 time Intrad ermal False Tylenol 325 mg tablet 2 tabs By Mouth Every 4 hours as needed For Pain DO NOT EXCEED 3000 MG APAP/24 Hours 2 tabs 2023 Active 2023 43671 29690 0 Every 4 hours as needed By Mouth False Tylenol 325 mg tablet 2 tabs By Mouth Every 4 hours as needed For Fever >100 DO NOT EXCEED 3000 MG APAP/24 Hours 2 tabs 2023 Active 2023 00778 48923 0 Every 4 hours as needed By Mouth False Dulcolax (bisacodyl) 10 mg rectal suppository One Suppository per rectum PRN if Milk of Magnisia ineffective. Give on day 5 of no BM 1 sup 2023 Active 2023 85298 40470 1 Daily as needed Rectal False Fleet Enema 19 gram-7 gram/118 mL Administer per rectum PRN one time if dulcolax suppository not effective. Give on day 6 of no BM 1 2023 Active 2023 15204 40047 6 Daily as needed Rectal False Milk of Magnesia 400 mg/5 mL oral suspension [Magnesium hydroxide] PRN 30ml By Mouth Daily as needed for constipation one time daily if no BM, on day 4 of no BM (PRN refer to instructions) For Constipation 30 mL 2023 Active 2023 55532 62909 6 Daily as needed By Mouth False Aspirin 81 mg chewable tablet [generic] 81mg By Mouth Once daily For aortic stenosis 81mg 2023 Active 2023 00803 49613 6 Once daily By Mouth False Potassium gluconate 600 mg (99 mg) tablet [generic] 1 tablet By Mouth Once daily For supplement 1 tablet 2023 Active 2023 69639 09316 8 Once daily By Mouth False Centrum Silver 400 mcg-250 mcg chewable tablet 1 tablet By Mouth Once daily For supplement 1 tablet 2023 Active 2023 83844 67720 9 Once daily By Mouth False PreserVisio n AREDS 2 Plus Multivit 200 mcg-15 mcg-5 mg-1 mg capsule 1 tablet By Mouth Once daily For supplement 1 tablet 2023 Active 2023 38145 63030 4 Once daily By Mouth False VITAL SIGNS Date Time Diastolic blood pressure Systolic blood pressure Body height Body weight Temperature SpO2 Blood Sugar Pulse Respirations 910 22472 0 79.00 mm[Hg] - Sitting 136.00 mm[Hg] - Sitting 97.90 Tympanic 84.00/ min 18.00/min 910 07556 1 62 NI 910 19693 1 910 69566 0 79.00 mm[Hg] - Sitting 136.00 mm[Hg] - Sitting 62 NI 75.80 NI 97.90 Tympanic 98.00 % 84.00/ min 18.00/min 0 93620 0 79.00 mm[Hg] - Sitting 136.00 mm[Hg] - Sitting 97.90 Tympanic 84.00/ min 18.00/min
--- OUTSIDE RECORDS SUMMARY | 2024-07-01 21:53 | External Medical Summary | Continuity Of Care Document ---
Author Name Unknown Address [address] [address] Organization [facility] () Care Team Providers Care Electron Beam Welder Setter Name Role Phone DO Carlton Amy Primary Care Provider [phone] Allergies Allergy Reaction Start Date End Date [...] Day 3 0.1 mL 06/03 Active 2023 04228 02922 0 1 time Intrad ermal False Tubersol 5 tub. unit/0.1 mL intradermal injection solution [Tuberculin PPD] 0.1mL Intradermal 1 time For PPD 2nd Step Give 2nd Step PPD Day 1 and Read results Day 3 (schedule 7 days after 1st READ) 0.1mL 06/12 Active 2023 59856 54892 0 1 time Intrad ermal False Tylenol 325 mg tablet 2 tabs By Mouth Every 4 hours as needed For Pain DO NOT EXCEED 3000 MG APAP/24 Hours 2 tabs 2023 Active 2023 70602 51849 0 Every 4 hours as needed By Mouth False Tylenol 325 mg tablet 2 tabs By Mouth Every 4 hours as needed For Fever >100 DO NOT EXCEED 3000 MG APAP/24 Hours 2 tabs 2023 Active 2023 48634 04296 0 Every 4 hours as needed By Mouth False Dulcolax (bisacodyl) 10 mg rectal suppository One Suppository per rectum PRN if Milk of Magnisia ineffective. Give on day 5 of no BM 1 sup 2023 Active 2023 31735 85657 1 Daily as needed Rectal False Fleet Enema 19 gram-7 gram/118 mL Administer per rectum PRN one time if dulcolax suppository not effective. Give on day 6 of no BM 1 2023 Active 2023 36346 99164 6 Daily as needed Rectal False Milk of Magnesia 400 mg/5 mL oral suspension [Magnesium hydroxide] PRN 30ml By Mouth Daily as needed for constipation one time daily if no BM, on day 4 of no BM (PRN refer to instructions) For Constipation 30 mL 2023 Active 2023 15018 37459 6 Daily as needed By Mouth False Aspirin 81 mg chewable tablet [generic] 81mg By Mouth Once daily For aortic stenosis 81mg 2023 Active 2023 03539 62383 6 Once daily By Mouth False Potassium gluconate 600 mg (99 mg) tablet [generic] 1 tablet By Mouth Once daily For supplement 1 tablet 2023 Active 2023 35573 08558 8 Once daily By Mouth False Centrum Silver 400 mcg-250 mcg chewable tablet 1 tablet By Mouth Once daily For supplement 1 tablet 2023 Active 2023 85783 16687 9 Once daily By Mouth False PreserVisio n AREDS 2 Plus Multivit 200 mcg-15 mcg-5 mg-1 mg capsule 1 tablet By Mouth Once daily For supplement 1 tablet 2023 Active 2023 40783 15342 4 Once daily By Mouth False VITAL SIGNS Date Time Diastolic blood pressure Systolic blood pressure Body height Body weight Temperature SpO2 Blood Sugar Pulse Respirations 910 41995 0 79.00 mm[Hg] - Sitting 136.00 mm[Hg] - Sitting 97.90 Tympanic 84.00/ min 18.00/min 910 36606 1 62 NI 910 70683 1 910 18440 0 79.00 mm[Hg] - Sitting 136.00 mm[Hg] - Sitting 62 NI 75.80 NI 97.90 Tympanic 98.00 % 84.00/ min 18.00/min 0 35922 0 79.00 mm[Hg] - Sitting 136.00 mm[Hg] - Sitting 97.90 Tympanic 84.00/ min 18.00/min
--- OUTSIDE RECORDS SUMMARY | 2024-07-01 21:53 | External Medical Summary | Continuity Of Care Document ---
Author Name Unknown Address [address] [address] Organization [facility] () Care Team Providers Care Cosmetic Manager Name Role Phone DO Carlton Amy Primary Care Provider [phone] Allergies Allergy Reaction Start Date End Date [...] Day 3 0.1 mL 06/03 Active 2023 58232 29892 0 1 time Intrad ermal False Tubersol 5 tub. unit/0.1 mL intradermal injection solution [Tuberculin PPD] 0.1mL Intradermal 1 time For PPD 2nd Step Give 2nd Step PPD Day 1 and Read results Day 3 (schedule 7 days after 1st READ) 0.1mL 06/12 Active 2023 53418 11648 0 1 time Intrad ermal False Tylenol 325 mg tablet 2 tabs By Mouth Every 4 hours as needed For Pain DO NOT EXCEED 3000 MG APAP/24 Hours 2 tabs 2023 Active 2023 82555 97437 0 Every 4 hours as needed By Mouth False Tylenol 325 mg tablet 2 tabs By Mouth Every 4 hours as needed For Fever >100 DO NOT EXCEED 3000 MG APAP/24 Hours 2 tabs 2023 Active 2023 74604 09722 0 Every 4 hours as needed By Mouth False Dulcolax (bisacodyl) 10 mg rectal suppository One Suppository per rectum PRN if Milk of Magnisia ineffective. Give on day 5 of no BM 1 sup 2023 Active 2023 34748 77848 1 Daily as needed Rectal False Fleet Enema 19 gram-7 gram/118 mL Administer per rectum PRN one time if dulcolax suppository not effective. Give on day 6 of no BM 1 2023 Active 2023 95329 77635 6 Daily as needed Rectal False Milk of Magnesia 400 mg/5 mL oral suspension [Magnesium hydroxide] PRN 30ml By Mouth Daily as needed for constipation one time daily if no BM, on day 4 of no BM (PRN refer to instructions) For Constipation 30 mL 2023 Active 2023 27151 49102 6 Daily as needed By Mouth False Aspirin 81 mg chewable tablet [generic] 81mg By Mouth Once daily For aortic stenosis 81mg 2023 Active 2023 48262 74606 6 Once daily By Mouth False Potassium gluconate 600 mg (99 mg) tablet [generic] 1 tablet By Mouth Once daily For supplement 1 tablet 2023 Active 2023 53795 56527 8 Once daily By Mouth False Centrum Silver 400 mcg-250 mcg chewable tablet 1 tablet By Mouth Once daily For supplement 1 tablet 2023 Active 2023 21232 85246 9 Once daily By Mouth False PreserVisio n AREDS 2 Plus Multivit 200 mcg-15 mcg-5 mg-1 mg capsule 1 tablet By Mouth Once daily For supplement 1 tablet 2023 Active 2023 38203 61511 4 Once daily By Mouth False VITAL SIGNS Date Time Diastolic blood pressure Systolic blood pressure Body height Body weight Temperature SpO2 Blood Sugar Pulse Respirations 910 42795 0 79.00 mm[Hg] - Sitting 136.00 mm[Hg] - Sitting 97.90 Tympanic 84.00/ min 18.00/min 910 34592 1 62 NI 910 45452 1 910 56099 0 79.00 mm[Hg] - Sitting 136.00 mm[Hg] - Sitting 62 NI 75.80 NI 97.90 Tympanic 98.00 % 84.00/ min 18.00/min 910 32527 0 79.00 mm[Hg] - Sitting 136.00 mm[Hg] - Sitting 97.90 Tympanic 84.00/ min 18.00/min 910 47934 9 1 98069 5 75.80 NI 911 34952 0 62.00 mm[Hg] - Sitting 110.00 mm[Hg] - Sitting 98.70 Forehead Scan 96.00 % 87.00/ min 16.00/min 911 15499 0 80.00/ min
--- OUTSIDE RECORDS SUMMARY | 2024-07-01 21:53 | External Medical Summary | Continuity Of Care Document ---
Author Name Unknown Address [address] [address] Organization [facility] () Care Team Providers Care Development Architect Name Role Phone DO Carlton Amy Primary Care Provider [phone] Allergies Allergy Reaction Start Date End Date [...] 3 0.1 mL 06/03 Inactiv e 2023 07030 87123 0 1 time Intrad ermal False Tubersol 5 tub. unit/0.1 mL intradermal injection solution [Tuberculin PPD] 0.1mL Intradermal 1 time For PPD 2nd Step Give 2nd Step PPD Day 1 and Read results Day 3 (schedule 7 days after 1st READ) 0.1mL 06/12 Active 2023 54146 90193 0 1 time Intrad ermal False Tylenol 325 mg tablet 2 tabs By Mouth Every 4 hours as needed For Pain DO NOT EXCEED 3000 MG APAP/24 Hours 2 tabs 202300 Active 2023 88373 66984 0 Every 4 hours as needed By Mouth False Tylenol 325 mg tablet 2 tabs By Mouth Every 4 hours as needed For Fever >100 DO NOT EXCEED 3000 MG APAP/24 Hours 2 tabs 202300 Active 2023 21119 85782 0 Every 4 hours as needed By Mouth False Dulcolax (bisacodyl) 10 mg rectal suppository One Suppository per rectum PRN if Milk of Magnisia ineffective. Give on day 5 of no BM 1 sup 2023 Active 2023 31079 50750 1 Daily as needed Rectal False Fleet Enema 19 gram-7 gram/118 mL Administer per rectum PRN one time if dulcolax suppository not effective. Give on day 6 of no BM 1 2023 Active 2023 42707 26622 6 Daily as needed Rectal False Milk of Magnesia 400 mg/5 mL oral suspension [Magnesium hydroxide] PRN 30ml By Mouth Daily as needed for constipation one time daily if no BM, on day 4 of no BM (PRN refer to instructions) For Constipation 30 mL 2023 Active 2023 27223 89466 6 Daily as needed By Mouth False Aspirin 81 mg chewable tablet [generic] 81mg By Mouth Once daily For aortic stenosis 81mg 2023 Active 2023 35801 52437 6 Once daily By Mouth False Potassium gluconate 600 mg (99 mg) tablet [generic] 1 tablet By Mouth Once daily For supplement 1 tablet 2023 Active 2023 53227 66889 8 Once daily By Mouth False Centrum Silver 400 mcg-250 mcg chewable tablet 1 tablet By Mouth Once daily For supplement 1 tablet 2023 Active 2023 37695 50387 9 Once daily By Mouth False PreserVisio n AREDS 2 Plus Multivit 200 mcg-15 mcg-5 mg-1 mg capsule 1 tablet By Mouth Once daily For supplement 1 tablet 2023 Active 2023 76793 77892 4 Once daily By Mouth False Problems [...] weight Temperature SpO2 Blood Sugar Pulse Respirations 23684 0 79.00 mm[Hg] - Sitting 136.00 mm[Hg] - Sitting 97.90 Tympanic 84.00/ min 18.00/min 910 96897 1 62 NI 910 27635 1 910 55511 0 79.00 mm[Hg] - Sitting 136.00 mm[Hg] - Sitting 62 NI 75.80 NI 97.90 Tympanic 98.00 % 84.00/ min 18.00/min 910 54725 0 79.00 mm[Hg] - Sitting 136.00 mm[Hg] - Sitting 97.90 Tympanic 84.00/ min 18.00/min 910 29010 9 911 10749 5 75.80 NI 911 61886 0 62.00 mm[Hg] - Sitting 110.00 mm[Hg] - Sitting 98.70 Forehead Scan 96.00 % 87.00/ min 16.00/min 911 55838 0 80.00/ min 912 44325 6 50.00 mm[Hg] - Sitting 148.00 mm[Hg] - Sitting 98.10 Tympanic 98.00 % 68.00/ min 16.00/min 36844 912 14557 3 75.00 mm[Hg] - Sitting 152.00 mm[Hg] - Sitting
--- OUTSIDE RECORDS SUMMARY | 2024-07-01 21:53 | External Medical Summary | Continuity Of Care Document ---
Author Name Unknown Address [address] [address] Organization [facility] () Care Team Providers Care Wireless Development Manager Name Role Phone DO Carlton Amy Primary Care Provider [phone] Allergies Allergy Reaction Start Date End Date [...] Day 3 0.1 mL 06/03 Active 2023 84847 41943 0 1 time Intrad ermal False Tubersol 5 tub. unit/0.1 mL intradermal injection solution [Tuberculin PPD] 0.1mL Intradermal 1 time For PPD 2nd Step Give 2nd Step PPD Day 1 and Read results Day 3 (schedule 7 days after 1st READ) 0.1mL 06/12 Active 2023 78566 69035 0 1 time Intrad ermal False Tylenol 325 mg tablet 2 tabs By Mouth Every 4 hours as needed For Pain DO NOT EXCEED 3000 MG APAP/24 Hours 2 tabs 2023 Active 2023 90795 07407 0 Every 4 hours as needed By Mouth False Tylenol 325 mg tablet 2 tabs By Mouth Every 4 hours as needed For Fever >100 DO NOT EXCEED 3000 MG APAP/24 Hours 2 tabs 2023 Active 2023 53747 96988 0 Every 4 hours as needed By Mouth False Dulcolax (bisacodyl) 10 mg rectal suppository One Suppository per rectum PRN if Milk of Magnisia ineffective. Give on day 5 of no BM 1 sup 2023 Active 2023 74439 12898 1 Daily as needed Rectal False Fleet Enema 19 gram-7 gram/118 mL Administer per rectum PRN one time if dulcolax suppository not effective. Give on day 6 of no BM 1 2023 Active 2023 60494 12554 6 Daily as needed Rectal False Milk of Magnesia 400 mg/5 mL oral suspension [Magnesium hydroxide] PRN 30ml By Mouth Daily as needed for constipation one time daily if no BM, on day 4 of no BM (PRN refer to instructions) For Constipation 30 mL 2023 Active 2023 01900 80187 6 Daily as needed By Mouth False Aspirin 81 mg chewable tablet [generic] 81mg By Mouth Once daily For aortic stenosis 81mg 2023 Active 2023 06488 15829 6 Once daily By Mouth False Potassium gluconate 600 mg (99 mg) tablet [generic] 1 tablet By Mouth Once daily For supplement 1 tablet 2023 Active 2023 87931 71966 8 Once daily By Mouth False Centrum Silver 400 mcg-250 mcg chewable tablet 1 tablet By Mouth Once daily For supplement 1 tablet 2023 Active 2023 35815 98967 9 Once daily By Mouth False PreserVisio n AREDS 2 Plus Multivit 200 mcg-15 mcg-5 mg-1 mg capsule 1 tablet By Mouth Once daily For supplement 1 tablet 2023 Active 2023 73346 09189 4 Once daily By Mouth False VITAL SIGNS Date Time Diastolic blood pressure Systolic blood pressure Body height Body weight Temperature SpO2 Blood Sugar Pulse Respirations 910 10157 0 79.00 mm[Hg] - Sitting 136.00 mm[Hg] - Sitting 97.90 Tympanic 84.00/ min 18.00/min 910 94982 1 62 NI 910 93814 1 910 29974 0 79.00 mm[Hg] - Sitting 136.00 mm[Hg] - Sitting 62 NI 75.80 NI 97.90 Tympanic 98.00 % 84.00/ min 18.00/min 910 60025 0 79.00 mm[Hg] - Sitting 136.00 mm[Hg] - Sitting 97.90 Tympanic 84.00/ min 18.00/min 910 48274 9 1 74567 5 75.80 NI 911 53559 0 62.00 mm[Hg] - Sitting 110.00 mm[Hg] - Sitting 98.70 Forehead Scan 96.00 % 87.00/ min 16.00/min 911 58071 0 80.00/ min
--- OUTSIDE RECORDS SUMMARY | 2024-07-01 21:53 | External Medical Summary | Continuity Of Care Document ---
Author Name Unknown Address [address] [address] Organization [facility] () Care Team Providers Care Assembly Line Inspector Name Role Phone DO Carlton Amy Primary Care Provider [phone] Allergies Allergy Reaction Start Date End Date [...] Day 3 0.1 mL 06/03 Active 2023 28243 94453 0 1 time Intrad ermal False Tubersol 5 tub. unit/0.1 mL intradermal injection solution [Tuberculin PPD] 0.1mL Intradermal 1 time For PPD 2nd Step Give 2nd Step PPD Day 1 and Read results Day 3 (schedule 7 days after 1st READ) 0.1mL 06/12 Active 2023 74042 11704 0 1 time Intrad ermal False Tylenol 325 mg tablet 2 tabs By Mouth Every 4 hours as needed For Pain DO NOT EXCEED 3000 MG APAP/24 Hours 2 tabs 2023 Active 2023 07968 33561 0 Every 4 hours as needed By Mouth False Tylenol 325 mg tablet 2 tabs By Mouth Every 4 hours as needed For Fever >100 DO NOT EXCEED 3000 MG APAP/24 Hours 2 tabs 2023 Active 2023 75760 69822 0 Every 4 hours as needed By Mouth False Dulcolax (bisacodyl) 10 mg rectal suppository One Suppository per rectum PRN if Milk of Magnisia ineffective. Give on day 5 of no BM 1 sup 2023 Active 2023 76274 07564 1 Daily as needed Rectal False Fleet Enema 19 gram-7 gram/118 mL Administer per rectum PRN one time if dulcolax suppository not effective. Give on day 6 of no BM 1 2023 Active 2023 43868 04487 6 Daily as needed Rectal False Milk of Magnesia 400 mg/5 mL oral suspension [Magnesium hydroxide] PRN 30ml By Mouth Daily as needed for constipation one time daily if no BM, on day 4 of no BM (PRN refer to instructions) For Constipation 30 mL 2023 Active 2023 68059 81062 6 Daily as needed By Mouth False VITAL SIGNS Date Time Diastolic blood pressure Systolic blood pressure Body height Body weight Temperature SpO2 Blood Sugar Pulse Respirations 17764 0 79.00 mm[Hg] - Sitting 136.00 mm[Hg] - Sitting 97.90 Tympanic 84.00/ min 18.00/min 910 83308 1 62 NI 910 85320 1 910 78525 0 79.00 mm[Hg] - Sitting 136.00 mm[Hg] - Sitting 62 NI 75.80 NI 97.90 Tympanic 98.00 % 84.00/ min 18.00/min 910 69734 0 79.00 mm[Hg] - Sitting 136.00 mm[Hg] - Sitting 97.90 Tympanic 84.00/ min 18.00/min
--- OUTSIDE RECORDS SUMMARY | 2024-07-01 21:53 | External Medical Summary | Continuity Of Care Document ---
Author Name Unknown Address [address] [facility] () Care Team Providers Care Ibm Websphere Commerce Consultant Name Role Phone DO Carlton Amy Primary Care Provider [phone] Allergies Allergy Reaction Start Date End Date [...] Day 3 0.1 mL 06/03 Active 2023 39927 30439 0 1 time Intrad ermal False Tubersol 5 tub. unit/0.1 mL intradermal injection solution [Tuberculin PPD] 0.1mL Intradermal 1 time For PPD 2nd Step Give 2nd Step PPD Day 1 and Read results Day 3 (schedule 7 days after 1st READ) 0.1mL 06/12 Active 2023 56562 72452 0 1 time Intrad ermal False Tylenol 325 mg tablet 2 tabs By Mouth Every 4 hours as needed For Pain DO NOT EXCEED 3000 MG APAP/24 Hours 2 tabs 2023 Active 2023 90302 38584 0 Every 4 hours as needed By Mouth False Tylenol 325 mg tablet 2 tabs By Mouth Every 4 hours as needed For Fever >100 DO NOT EXCEED 3000 MG APAP/24 Hours 2 tabs 2023 Active 2023 41519 69308 0 Every 4 hours as needed By Mouth False Dulcolax (bisacodyl) 10 mg rectal suppository One Suppository per rectum PRN if Milk of Magnisia ineffective. Give on day 5 of no BM 1 sup 2023 Active 2023 82179 70338 1 Daily as needed Rectal False Fleet Enema 19 gram-7 gram/118 mL Administer per rectum PRN one time if dulcolax suppository not effective. Give on day 6 of no BM 1 2023 Active 2023 91295 30139 6 Daily as needed Rectal False Milk of Magnesia 400 mg/5 mL oral suspension [Magnesium hydroxide] PRN 30ml By Mouth Daily as needed for constipation one time daily if no BM, on day 4 of no BM (PRN refer to instructions) For Constipation 30 mL 2023 Active 2023 88787 48765 6 Daily as needed By Mouth False Aspirin 81 mg chewable tablet [generic] 81mg By Mouth Once daily For aortic stenosis 81mg 2023 Active 2023 11888 86506 6 Once daily By Mouth False Potassium gluconate 600 mg (99 mg) tablet [generic] 1 tablet By Mouth Once daily For supplement 1 tablet 2023 Active 2023 15092 28325 8 Once daily By Mouth False Centrum Silver 400 mcg-250 mcg chewable tablet 1 tablet By Mouth Once daily For supplement 1 tablet 2023 Active 2023 03896 61490 9 Once daily By Mouth False PreserVisio n AREDS 2 Plus Multivit 200 mcg-15 mcg-5 mg-1 mg capsule 1 tablet By Mouth Once daily For supplement 1 tablet 2023 Active 2023 83707 96636 4 Once daily By Mouth False Problems [...] weight Temperature SpO2 Blood Sugar Pulse Respirations 67862 0 79.00 mm[Hg] - Sitting 136.00 mm[Hg] - Sitting 97.90 Tympanic 84.00/ min 18.00/min 0 92456 1 62 NI 910 80039 1 910 12240 0 79.00 mm[Hg] - Sitting 136.00 mm[Hg] - Sitting 62 NI 75.80 NI 97.90 Tympanic 98.00 % 84.00/ min 18.00/min 910 41478 0 79.00 mm[Hg] - Sitting 136.00 mm[Hg] - Sitting 97.90 Tympanic 84.00/ min 18.00/min 910 87267 9 1 49984 5 75.80 NI 91 74057 0 62.00 mm[Hg] - Sitting 110.00 mm[Hg] - Sitting 98.70 Forehead Scan 96.00 % 87.00/ min 16.00/min 04552 0 80.00/ min
--- OUTSIDE RECORDS SUMMARY | 2024-07-01 21:53 | External Medical Summary | Continuity Of Care Document ---
Author Name Unknown Address [address] [address] Organization [facility] () Care Team Providers Care Instructor Adjunct Surgical Technician Name Role Phone DO Carlton Amy Primary Care Provider [phone] Allergies Allergy Reaction Start Date End Date [...] Day 3 0.1 mL 06/03 Active 2023 43143 21251 0 1 time Intrad ermal False Tubersol 5 tub. unit/0.1 mL intradermal injection solution [Tuberculin PPD] 0.1mL Intradermal 1 time For PPD 2nd Step Give 2nd Step PPD Day 1 and Read results Day 3 (schedule 7 days after 1st READ) 0.1mL 06/12 Active 2023 27046 06208 0 1 time Intrad ermal False Tylenol 325 mg tablet 2 tabs By Mouth Every 4 hours as needed For Pain DO NOT EXCEED 3000 MG APAP/24 Hours 2 tabs 2023 Active 2023 40399 26802 0 Every 4 hours as needed By Mouth False Tylenol 325 mg tablet 2 tabs By Mouth Every 4 hours as needed For Fever >100 DO NOT EXCEED 3000 MG APAP/24 Hours 2 tabs 2023 Active 2023 26719 20619 0 Every 4 hours as needed By Mouth False Dulcolax (bisacodyl) 10 mg rectal suppository One Suppository per rectum PRN if Milk of Magnisia ineffective. Give on day 5 of no BM 1 sup 2023 Active 2023 54098 23167 1 Daily as needed Rectal False Fleet Enema 19 gram-7 gram/118 mL Administer per rectum PRN one time if dulcolax suppository not effective. Give on day 6 of no BM 1 2023 Active 2023 00533 32281 6 Daily as needed Rectal False Milk of Magnesia 400 mg/5 mL oral suspension [Magnesium hydroxide] PRN 30ml By Mouth Daily as needed for constipation one time daily if no BM, on day 4 of no BM (PRN refer to instructions) For Constipation 30 mL 2023 Active 2023 76571 64833 6 Daily as needed By Mouth False Aspirin 81 mg chewable tablet [generic] 81mg By Mouth Once daily For aortic stenosis 81mg 2023 Active 2023 73723 99942 6 Once daily By Mouth False Potassium gluconate 600 mg (99 mg) tablet [generic] 1 tablet By Mouth Once daily For supplement 1 tablet 2023 Active 2023 42566 93157 8 Once daily By Mouth False Centrum Silver 400 mcg-250 mcg chewable tablet 1 tablet By Mouth Once daily For supplement 1 tablet 2023 Active 2023 02602 10729 9 Once daily By Mouth False PreserVisio n AREDS 2 Plus Multivit 200 mcg-15 mcg-5 mg-1 mg capsule 1 tablet By Mouth Once daily For supplement 1 tablet 2023 Active 2023 03763 10360 4 Once daily By Mouth False VITAL SIGNS Date Time Diastolic blood pressure Systolic blood pressure Body height Body weight Temperature SpO2 Blood Sugar Pulse Respirations 910 60900 0 79.00 mm[Hg] - Sitting 136.00 mm[Hg] - Sitting 97.90 Tympanic 84.00/ min 18.00/min 910 95555 1 62 NI 910 98977 1 910 02506 0 79.00 mm[Hg] - Sitting 136.00 mm[Hg] - Sitting 62 NI 75.80 NI 97.90 Tympanic 98.00 % 84.00/ min 18.00/min 0 47504 0 79.00 mm[Hg] - Sitting 136.00 mm[Hg] - Sitting 97.90 Tympanic 84.00/ min 18.00/min
--- OUTSIDE RECORDS SUMMARY | 2024-07-01 21:53 | External Medical Summary | Continuity Of Care Document ---
Author Name Unknown Address [address] [address] Organization [facility] () Care Team Providers Care Book Shelver Name Role Phone DO Carlton Amy Primary Care Provider [phone] Allergies Allergy Reaction Start Date End Date [...] Day 3 0.1 mL 06/03 Active 2023 74316 31347 0 1 time Intrad ermal False Tubersol 5 tub. unit/0.1 mL intradermal injection solution [Tuberculin PPD] 0.1mL Intradermal 1 time For PPD 2nd Step Give 2nd Step PPD Day 1 and Read results Day 3 (schedule 7 days after 1st READ) 0.1mL 06/12 Active 2023 40833 89557 0 1 time Intrad ermal False Tylenol 325 mg tablet 2 tabs By Mouth Every 4 hours as needed For Pain DO NOT EXCEED 3000 MG APAP/24 Hours 2 tabs 2023 Active 2023 03013 02808 0 Every 4 hours as needed By Mouth False Tylenol 325 mg tablet 2 tabs By Mouth Every 4 hours as needed For Fever >100 DO NOT EXCEED 3000 MG APAP/24 Hours 2 tabs 2023 Active 2023 74631 59429 0 Every 4 hours as needed By Mouth False Dulcolax (bisacodyl) 10 mg rectal suppository One Suppository per rectum PRN if Milk of Magnisia ineffective. Give on day 5 of no BM 1 sup 2023 Active 2023 55886 25592 1 Daily as needed Rectal False Fleet Enema 19 gram-7 gram/118 mL Administer per rectum PRN one time if dulcolax suppository not effective. Give on day 6 of no BM 1 2023 Active 2023 79234 76516 6 Daily as needed Rectal False Milk of Magnesia 400 mg/5 mL oral suspension [Magnesium hydroxide] PRN 30ml By Mouth Daily as needed for constipation one time daily if no BM, on day 4 of no BM (PRN refer to instructions) For Constipation 30 mL 2023 Active 2023 46489 20364 6 Daily as needed By Mouth False Aspirin 81 mg chewable tablet [generic] 81mg By Mouth Once daily For aortic stenosis 81mg 2023 Active 2023 99667 08195 6 Once daily By Mouth False Potassium gluconate 600 mg (99 mg) tablet [generic] 1 tablet By Mouth Once daily For supplement 1 tablet 2023 Active 2023 24482 99977 8 Once daily By Mouth False Centrum Silver 400 mcg-250 mcg chewable tablet 1 tablet By Mouth Once daily For supplement 1 tablet 2023 Active 2023 16296 80916 9 Once daily By Mouth False PreserVisio n AREDS 2 Plus Multivit 200 mcg-15 mcg-5 mg-1 mg capsule 1 tablet By Mouth Once daily For supplement 1 tablet 2023 Active 2023 18425 94878 4 Once daily By Mouth False VITAL SIGNS Date Time Diastolic blood pressure Systolic blood pressure Body height Body weight Temperature SpO2 Blood Sugar Pulse Respirations 910 07684 0 79.00 mm[Hg] - Sitting 136.00 mm[Hg] - Sitting 97.90 Tympanic 84.00/ min 18.00/min 910 87033 1 62 NI 910 88143 1 910 12884 0 79.00 mm[Hg] - Sitting 136.00 mm[Hg] - Sitting 62 NI 75.80 NI 97.90 Tympanic 98.00 % 84.00/ min 18.00/min 0 52546 0 79.00 mm[Hg] - Sitting 136.00 mm[Hg] - Sitting 97.90 Tympanic 84.00/ min 18.00/min
--- OUTSIDE RECORDS SUMMARY | 2024-07-01 21:53 | External Medical Summary | Continuity Of Care Document ---
Author Name Unknown Address [address] [address] Organization [facility] () Care Team Providers Care Assembler Musical Instruments Name Role Phone DO Carlton Amy Primary Care Provider [phone] Allergies Allergy Reaction Start Date End Date [...] 3 0.1 mL 06/03 Inactiv e 2023 56920 33030 0 1 time Intrad ermal False Tubersol 5 tub. unit/0.1 mL intradermal injection solution [Tuberculin PPD] 0.1mL Intradermal 1 time For PPD 2nd Step Give 2nd Step PPD Day 1 and Read results Day 3 (schedule 7 days after 1st READ) 0.1mL 06/12 Active 2023 77983 51269 0 1 time Intrad ermal False Tylenol 325 mg tablet 2 tabs By Mouth Every 4 hours as needed For Pain DO NOT EXCEED 3000 MG APAP/24 Hours 2 tabs 202300 Active 2023 33348 48600 0 Every 4 hours as needed By Mouth False Tylenol 325 mg tablet 2 tabs By Mouth Every 4 hours as needed For Fever >100 DO NOT EXCEED 3000 MG APAP/24 Hours 2 tabs 202300 Active 2023 57566 01839 0 Every 4 hours as needed By Mouth False Dulcolax (bisacodyl) 10 mg rectal suppository One Suppository per rectum PRN if Milk of Magnisia ineffective. Give on day 5 of no BM 1 sup 2023 Active 2023 71537 18477 1 Daily as needed Rectal False Fleet Enema 19 gram-7 gram/118 mL Administer per rectum PRN one time if dulcolax suppository not effective. Give on day 6 of no BM 1 2023 Active 2023 11311 07843 6 Daily as needed Rectal False Milk of Magnesia 400 mg/5 mL oral suspension [Magnesium hydroxide] PRN 30ml By Mouth Daily as needed for constipation one time daily if no BM, on day 4 of no BM (PRN refer to instructions) For Constipation 30 mL 2023 Active 2023 91503 25107 6 Daily as needed By Mouth False Aspirin 81 mg chewable tablet [generic] 81mg By Mouth Once daily For aortic stenosis 81mg 2023 Active 2023 05358 10788 6 Once daily By Mouth False Potassium gluconate 600 mg (99 mg) tablet [generic] 1 tablet By Mouth Once daily For supplement 1 tablet 2023 Active 2023 80870 14846 8 Once daily By Mouth False Centrum Silver 400 mcg-250 mcg chewable tablet 1 tablet By Mouth Once daily For supplement 1 tablet 2023 Active 2023 03065 17687 9 Once daily By Mouth False PreserVisio n AREDS 2 Plus Multivit 200 mcg-15 mcg-5 mg-1 mg capsule 1 tablet By Mouth Once daily For supplement 1 tablet 2023 Active 2023 87548 00011 4 Once daily By Mouth False Problems [...] weight Temperature SpO2 Blood Sugar Pulse Respirations 82938 0 79.00 mm[Hg] - Sitting 136.00 mm[Hg] - Sitting 97.90 Tympanic 84.00/ min 18.00/min 910 40838 1 62 NI 910 92826 1 910 85217 0 79.00 mm[Hg] - Sitting 136.00 mm[Hg] - Sitting 62 NI 75.80 NI 97.90 Tympanic 98.00 % 84.00/ min 18.00/min 910 29287 0 79.00 mm[Hg] - Sitting 136.00 mm[Hg] - Sitting 97.90 Tympanic 84.00/ min 18.00/min 910 71905 9 911 15835 5 75.80 NI 911 41150 0 62.00 mm[Hg] - Sitting 110.00 mm[Hg] - Sitting 98.70 Forehead Scan 96.00 % 87.00/ min 16.00/min 911 92432 0 80.00/ min 912 49266 6 50.00 mm[Hg] - Sitting 148.00 mm[Hg] - Sitting 98.10 Tympanic 98.00 % 68.00/ min 16.00/min 21199 912 76702 3 75.00 mm[Hg] - Sitting 152.00 mm[Hg] - Sitting
--- OUTSIDE RECORDS SUMMARY | 2024-07-01 21:53 | External Medical Summary | Continuity Of Care Document ---
Author Name Unknown Address [address] [address] Organization [facility] () Care Team Providers Care Engine Research Engineer Name Role Phone DO Carlton Amy Primary Care Provider [phone] Allergies Allergy Reaction Start Date End Date [...] 3 0.1 mL 06/03 Inactiv e 2023 09948 35360 0 1 time Intrad ermal False Tubersol 5 tub. unit/0.1 mL intradermal injection solution [Tuberculin PPD] 0.1mL Intradermal 1 time For PPD 2nd Step Give 2nd Step PPD Day 1 and Read results Day 3 (schedule 7 days after 1st READ) 0.1mL 06/12 Active 2023 82156 38636 0 1 time Intrad ermal False Tylenol 325 mg tablet 2 tabs By Mouth Every 4 hours as needed For Pain DO NOT EXCEED 3000 MG APAP/24 Hours 2 tabs 2023 Active 2023 59895 70045 0 Every 4 hours as needed By Mouth False Tylenol 325 mg tablet 2 tabs By Mouth Every 4 hours as needed For Fever >100 DO NOT EXCEED 3000 MG APAP/24 Hours 2 tabs 2023 Active 2023 60217 57943 0 Every 4 hours as needed By Mouth False Dulcolax (bisacodyl) 10 mg rectal suppository One Suppository per rectum PRN if Milk of Magnisia ineffective. Give on day 5 of no BM 1 sup 2023 Active 2023 69544 42926 1 Daily as needed Rectal False Fleet Enema 19 gram-7 gram/118 mL Administer per rectum PRN one time if dulcolax suppository not effective. Give on day 6 of no BM 1 2023 Active 2023 24909 59113 6 Daily as needed Rectal False Milk of Magnesia 400 mg/5 mL oral suspension [Magnesium hydroxide] PRN 30ml By Mouth Daily as needed for constipation one time daily if no BM, on day 4 of no BM (PRN refer to instructions) For Constipation 30 mL 2023 Active 2023 08740 21350 6 Daily as needed By Mouth False Aspirin 81 mg chewable tablet [generic] 81mg By Mouth Once daily For aortic stenosis 81mg 2023 Active 2023 13722 75112 6 Once daily By Mouth False Potassium gluconate 600 mg (99 mg) tablet [generic] 1 tablet By Mouth Once daily For supplement 1 tablet 2023 Active 2023 31010 38534 8 Once daily By Mouth False Centrum Silver 400 mcg-250 mcg chewable tablet 1 tablet By Mouth Once daily For supplement 1 tablet 2023 Active 2023 25833 03214 9 Once daily By Mouth False PreserVisio n AREDS 2 Plus Multivit 200 mcg-15 mcg-5 mg-1 mg capsule 1 tablet By Mouth Once daily For supplement 1 tablet 2023 Active 2023 60895 64995 4 Once daily By Mouth False Problems [...] weight Temperature SpO2 Blood Sugar Pulse Respirations 21034 0 79.00 mm[Hg] - Sitting 136.00 mm[Hg] - Sitting 97.90 Tympanic 84.00/ min 18.00/min 910 63773 1 62 NI 910 24122 1 910 18205 0 79.00 mm[Hg] - Sitting 136.00 mm[Hg] - Sitting 62 NI 75.80 NI 97.90 Tympanic 98.00 % 84.00/ min 18.00/min 910 67649 0 79.00 mm[Hg] - Sitting 136.00 mm[Hg] - Sitting 97.90 Tympanic 84.00/ min 18.00/min 910 49424 9 911 67719 5 75.80 NI 911 59921 0 62.00 mm[Hg] - Sitting 110.00 mm[Hg] - Sitting 98.70 Forehead Scan 96.00 % 87.00/ min 16.00/min 911 27071 0 80.00/ min 912 64387 6 50.00 mm[Hg] - Sitting 148.00 mm[Hg] - Sitting 98.10 Tympanic 98.00 % 68.00/ min 16.00/min 33473 912 41766 3 75.00 mm[Hg] - Sitting 152.00 mm[Hg] - Sitting 84388 914 18805 0 46.00 mm[Hg] - Sitting 127.00 mm[Hg] - Sitting 98.20 Tympanic 98.00 % 66.00/ min 18.00/min
--- OUTSIDE RECORDS SUMMARY | 2024-07-01 21:53 | External Medical Summary | Continuity Of Care Document ---
Author Name Unknown Address [address] [address] Organization [facility] () Care Team Providers Care Medical Office Technologist Name Role Phone DO Carlton Amy Primary Care Provider [phone] Allergies Allergy Reaction Start Date End Date [...] Day 3 0.1 mL 06/03 Active 2023 63229 28640 0 1 time Intrad ermal False Tubersol 5 tub. unit/0.1 mL intradermal injection solution [Tuberculin PPD] 0.1mL Intradermal 1 time For PPD 2nd Step Give 2nd Step PPD Day 1 and Read results Day 3 (schedule 7 days after 1st READ) 0.1mL 06/12 Active 2023 75767 56264 0 1 time Intrad ermal False Tylenol 325 mg tablet 2 tabs By Mouth Every 4 hours as needed For Pain DO NOT EXCEED 3000 MG APAP/24 Hours 2 tabs 2023 Active 2023 53384 41358 0 Every 4 hours as needed By Mouth False Tylenol 325 mg tablet 2 tabs By Mouth Every 4 hours as needed For Fever >100 DO NOT EXCEED 3000 MG APAP/24 Hours 2 tabs 2023 Active 2023 30185 44526 0 Every 4 hours as needed By Mouth False Dulcolax (bisacodyl) 10 mg rectal suppository One Suppository per rectum PRN if Milk of Magnisia ineffective. Give on day 5 of no BM 1 sup 2023 Active 2023 58633 92805 1 Daily as needed Rectal False Fleet Enema 19 gram-7 gram/118 mL Administer per rectum PRN one time if dulcolax suppository not effective. Give on day 6 of no BM 1 2023 Active 2023 89590 22584 6 Daily as needed Rectal False Milk of Magnesia 400 mg/5 mL oral suspension [Magnesium hydroxide] PRN 30ml By Mouth Daily as needed for constipation one time daily if no BM, on day 4 of no BM (PRN refer to instructions) For Constipation 30 mL 2023 Active 2023 46706 35883 6 Daily as needed By Mouth False Aspirin 81 mg chewable tablet [generic] 81mg By Mouth Once daily For aortic stenosis 81mg 2023 Active 2023 47541 67738 6 Once daily By Mouth False Potassium gluconate 600 mg (99 mg) tablet [generic] 1 tablet By Mouth Once daily For supplement 1 tablet 2023 Active 2023 37592 62079 8 Once daily By Mouth False Centrum Silver 400 mcg-250 mcg chewable tablet 1 tablet By Mouth Once daily For supplement 1 tablet 2023 Active 2023 09227 34538 9 Once daily By Mouth False PreserVisio n AREDS 2 Plus Multivit 200 mcg-15 mcg-5 mg-1 mg capsule 1 tablet By Mouth Once daily For supplement 1 tablet 2023 Active 2023 84072 89446 4 Once daily By Mouth False VITAL SIGNS Date Time Diastolic blood pressure Systolic blood pressure Body height Body weight Temperature SpO2 Blood Sugar Pulse Respirations 910 73902 0 79.00 mm[Hg] - Sitting 136.00 mm[Hg] - Sitting 97.90 Tympanic 84.00/ min 18.00/min 910 62950 1 62 NI 910 08317 1 0 36739 0 79.00 mm[Hg] - Sitting 136.00 mm[Hg] - Sitting 62 NI 75.80 NI 97.90 Tympanic 98.00 % 84.00/ min 18.00/min 910 62396 0 79.00 mm[Hg] - Sitting 136.00 mm[Hg] - Sitting 97.90 Tympanic 84.00/ min 18.00/min 910 86598 9 67559 911 42773 5 75.80 NI
--- OUTSIDE RECORDS SUMMARY | 2024-07-01 21:53 | External Medical Summary | Continuity Of Care Document ---
Author Name Unknown Address [address] [address] Organization [facility] () Care Team Providers Care Federal Appellate Law Clerk Name Role Phone DO Carlton Amy Primary Care Provider [phone] Allergies Allergy Reaction Start Date End Date [...] Day 3 0.1 mL 06/03 Active 2023 99881 42569 0 1 time Intrad ermal False Tubersol 5 tub. unit/0.1 mL intradermal injection solution [Tuberculin PPD] 0.1mL Intradermal 1 time For PPD 2nd Step Give 2nd Step PPD Day 1 and Read results Day 3 (schedule 7 days after 1st READ) 0.1mL 06/12 Active 2023 97180 40674 0 1 time Intrad ermal False Tylenol 325 mg tablet 2 tabs By Mouth Every 4 hours as needed For Pain DO NOT EXCEED 3000 MG APAP/24 Hours 2 tabs 2023 Active 2023 52873 72859 0 Every 4 hours as needed By Mouth False Tylenol 325 mg tablet 2 tabs By Mouth Every 4 hours as needed For Fever >100 DO NOT EXCEED 3000 MG APAP/24 Hours 2 tabs 2023 Active 2023 92369 08448 0 Every 4 hours as needed By Mouth False Dulcolax (bisacodyl) 10 mg rectal suppository One Suppository per rectum PRN if Milk of Magnisia ineffective. Give on day 5 of no BM 1 sup 2023 Active 2023 51760 04727 1 Daily as needed Rectal False Fleet Enema 19 gram-7 gram/118 mL Administer per rectum PRN one time if dulcolax suppository not effective. Give on day 6 of no BM 1 2023 Active 2023 65034 59592 6 Daily as needed Rectal False Milk of Magnesia 400 mg/5 mL oral suspension [Magnesium hydroxide] PRN 30ml By Mouth Daily as needed for constipation one time daily if no BM, on day 4 of no BM (PRN refer to instructions) For Constipation 30 mL 2023 Active 2023 66491 36999 6 Daily as needed By Mouth False Aspirin 81 mg chewable tablet [generic] 81mg By Mouth Once daily For aortic stenosis 81mg 2023 Active 2023 04581 38007 6 Once daily By Mouth False Potassium gluconate 600 mg (99 mg) tablet [generic] 1 tablet By Mouth Once daily For supplement 1 tablet 2023 Active 2023 87102 13876 8 Once daily By Mouth False Centrum Silver 400 mcg-250 mcg chewable tablet 1 tablet By Mouth Once daily For supplement 1 tablet 2023 Active 2023 71224 57450 9 Once daily By Mouth False PreserVisio n AREDS 2 Plus Multivit 200 mcg-15 mcg-5 mg-1 mg capsule 1 tablet By Mouth Once daily For supplement 1 tablet 2023 Active 2023 02767 28578 4 Once daily By Mouth False VITAL SIGNS Date Time Diastolic blood pressure Systolic blood pressure Body height Body weight Temperature SpO2 Blood Sugar Pulse Respirations 910 30884 0 79.00 mm[Hg] - Sitting 136.00 mm[Hg] - Sitting 97.90 Tympanic 84.00/ min 18.00/min 910 84118 1 62 NI 910 56998 1 910 05292 0 79.00 mm[Hg] - Sitting 136.00 mm[Hg] - Sitting 62 NI 75.80 NI 97.90 Tympanic 98.00 % 84.00/ min 18.00/min 910 81512 0 79.00 mm[Hg] - Sitting 136.00 mm[Hg] - Sitting 97.90 Tympanic 84.00/ min 18.00/min 910 13211 9 1 45235 5 75.80 NI 911 41036 0 62.00 mm[Hg] - Sitting 110.00 mm[Hg] - Sitting 98.70 Forehead Scan 96.00 % 87.00/ min 16.00/min 911 77407 0 80.00/ min
--- OUTSIDE RECORDS SUMMARY | 2024-07-01 21:53 | External Medical Summary | Continuity Of Care Document ---
Author Name Unknown Address [address] [address] Organization [facility] () Care Team Providers Care Full Time Name Role Phone DO Carlton Amy Primary Care Provider [phone] Allergies Allergy Reaction Start Date End Date [...] Day 3 0.1 mL 06/03 Active 2023 42994 70364 0 1 time Intrad ermal False Tubersol 5 tub. unit/0.1 mL intradermal injection solution [Tuberculin PPD] 0.1mL Intradermal 1 time For PPD 2nd Step Give 2nd Step PPD Day 1 and Read results Day 3 (schedule 7 days after 1st READ) 0.1mL 06/12 Active 2023 33543 74006 0 1 time Intrad ermal False Tylenol 325 mg tablet 2 tabs By Mouth Every 4 hours as needed For Pain DO NOT EXCEED 3000 MG APAP/24 Hours 2 tabs 2023 Active 2023 05550 83811 0 Every 4 hours as needed By Mouth False Tylenol 325 mg tablet 2 tabs By Mouth Every 4 hours as needed For Fever >100 DO NOT EXCEED 3000 MG APAP/24 Hours 2 tabs 2023 Active 2023 25796 29998 0 Every 4 hours as needed By Mouth False Dulcolax (bisacodyl) 10 mg rectal suppository One Suppository per rectum PRN if Milk of Magnisia ineffective. Give on day 5 of no BM 1 sup 2023 Active 2023 81254 54965 1 Daily as needed Rectal False Fleet Enema 19 gram-7 gram/118 mL Administer per rectum PRN one time if dulcolax suppository not effective. Give on day 6 of no BM 1 2023 Active 2023 63232 90157 6 Daily as needed Rectal False Milk of Magnesia 400 mg/5 mL oral suspension [Magnesium hydroxide] PRN 30ml By Mouth Daily as needed for constipation one time daily if no BM, on day 4 of no BM (PRN refer to instructions) For Constipation 30 mL 2023 Active 2023 49217 54981 6 Daily as needed By Mouth False Aspirin 81 mg chewable tablet [generic] 81mg By Mouth Once daily For aortic stenosis 81mg 2023 Active 2023 80054 91989 6 Once daily By Mouth False Potassium gluconate 600 mg (99 mg) tablet [generic] 1 tablet By Mouth Once daily For supplement 1 tablet 2023 Active 2023 39140 98675 8 Once daily By Mouth False Centrum Silver 400 mcg-250 mcg chewable tablet 1 tablet By Mouth Once daily For supplement 1 tablet 2023 Active 2023 83150 55577 9 Once daily By Mouth False PreserVisio n AREDS 2 Plus Multivit 200 mcg-15 mcg-5 mg-1 mg capsule 1 tablet By Mouth Once daily For supplement 1 tablet 2023 Active 2023 10605 64867 4 Once daily By Mouth False VITAL SIGNS Date Time Diastolic blood pressure Systolic blood pressure Body height Body weight Temperature SpO2 Blood Sugar Pulse Respirations 910 05249 0 79.00 mm[Hg] - Sitting 136.00 mm[Hg] - Sitting 97.90 Tympanic 84.00/ min 18.00/min 910 16879 1 62 NI 910 51968 1 0 59152 0 79.00 mm[Hg] - Sitting 136.00 mm[Hg] - Sitting 62 NI 75.80 NI 97.90 Tympanic 98.00 % 84.00/ min 18.00/min 910 52316 0 79.00 mm[Hg] - Sitting 136.00 mm[Hg] - Sitting 97.90 Tympanic 84.00/ min 18.00/min 910 89126 9 57835 911 18998 5 75.80 NI
--- OUTSIDE RECORDS SUMMARY | 2024-07-01 21:53 | External Medical Summary | Continuity Of Care Document ---
Author Name Unknown Address [address] [facility] () Care Team Providers Care Roll Grinder Name Role Phone DO Carlton Amy Primary Care Provider [phone] Allergies Allergy Reaction Start Date End Date [...] Day 3 0.1 mL 06/03 Active 2023 72058 28572 0 1 time Intrad ermal False Tubersol 5 tub. unit/0.1 mL intradermal injection solution [Tuberculin PPD] 0.1mL Intradermal 1 time For PPD 2nd Step Give 2nd Step PPD Day 1 and Read results Day 3 (schedule 7 days after 1st READ) 0.1mL 06/12 Active 2023 03143 32585 0 1 time Intrad ermal False Tylenol 325 mg tablet 2 tabs By Mouth Every 4 hours as needed For Pain DO NOT EXCEED 3000 MG APAP/24 Hours 2 tabs 2023 Active 2023 29414 04390 0 Every 4 hours as needed By Mouth False Tylenol 325 mg tablet 2 tabs By Mouth Every 4 hours as needed For Fever >100 DO NOT EXCEED 3000 MG APAP/24 Hours 2 tabs 2023 Active 2023 01400 15284 0 Every 4 hours as needed By Mouth False Dulcolax (bisacodyl) 10 mg rectal suppository One Suppository per rectum PRN if Milk of Magnisia ineffective. Give on day 5 of no BM 1 sup 2023 Active 2023 19429 06260 1 Daily as needed Rectal False Fleet Enema 19 gram-7 gram/118 mL Administer per rectum PRN one time if dulcolax suppository not effective. Give on day 6 of no BM 1 2023 Active 2023 76550 55965 6 Daily as needed Rectal False Milk of Magnesia 400 mg/5 mL oral suspension [Magnesium hydroxide] PRN 30ml By Mouth Daily as needed for constipation one time daily if no BM, on day 4 of no BM (PRN refer to instructions) For Constipation 30 mL 2023 Active 2023 40482 25599 6 Daily as needed By Mouth False Aspirin 81 mg chewable tablet [generic] 81mg By Mouth Once daily For aortic stenosis 81mg 2023 Active 2023 71927 15710 6 Once daily By Mouth False Potassium gluconate 600 mg (99 mg) tablet [generic] 1 tablet By Mouth Once daily For supplement 1 tablet 2023 Active 2023 32247 72382 8 Once daily By Mouth False Centrum Silver 400 mcg-250 mcg chewable tablet 1 tablet By Mouth Once daily For supplement 1 tablet 2023 Active 2023 71576 25978 9 Once daily By Mouth False PreserVisio n AREDS 2 Plus Multivit 200 mcg-15 mcg-5 mg-1 mg capsule 1 tablet By Mouth Once daily For supplement 1 tablet 2023 Active 2023 51426 70365 4 Once daily By Mouth False Problems [...] weight Temperature SpO2 Blood Sugar Pulse Respirations 94188 0 79.00 mm[Hg] - Sitting 136.00 mm[Hg] - Sitting 97.90 Tympanic 84.00/ min 18.00/min 910 65526 1 62 NI 910 38778 1 910 02321 0 79.00 mm[Hg] - Sitting 136.00 mm[Hg] - Sitting 62 NI 75.80 NI 97.90 Tympanic 98.00 % 84.00/ min 18.00/min 910 93983 0 79.00 mm[Hg] - Sitting 136.00 mm[Hg] - Sitting 97.90 Tympanic 84.00/ min 18.00/min 910 47062 9 1 82540 5 75.80 NI 91 74445 0 62.00 mm[Hg] - Sitting 110.00 mm[Hg] - Sitting 98.70 Forehead Scan 96.00 % 87.00/ min 16.00/min 911 22683 0 80.00/ min 912 19273 6 50.00 mm[Hg] - Sitting 148.00 mm[Hg] - Sitting 98.10 Tympanic 98.00 % 68.00/ min 16.00/min 67284 912 54706 3 75.00 mm[Hg] - Sitting 152.00 mm[Hg] - Sitting
--- OUTSIDE RECORDS SUMMARY | 2024-07-01 21:53 | External Medical Summary | Continuity Of Care Document ---
Author Name Unknown Address [address] [address] Organization [facility] () Care Team Providers Care Configuration Management Specialist Name Role Phone DO Carlton Amy Primary Care Provider [phone] Allergies Allergy Reaction Start Date End Date [...] Day 3 0.1 mL 06/03 Active 2023 73070 01058 0 1 time Intrad ermal False Tubersol 5 tub. unit/0.1 mL intradermal injection solution [Tuberculin PPD] 0.1mL Intradermal 1 time For PPD 2nd Step Give 2nd Step PPD Day 1 and Read results Day 3 (schedule 7 days after 1st READ) 0.1mL 06/12 Active 2023 12922 23397 0 1 time Intrad ermal False Tylenol 325 mg tablet 2 tabs By Mouth Every 4 hours as needed For Pain DO NOT EXCEED 3000 MG APAP/24 Hours 2 tabs 2023 Active 2023 69952 49957 0 Every 4 hours as needed By Mouth False Tylenol 325 mg tablet 2 tabs By Mouth Every 4 hours as needed For Fever >100 DO NOT EXCEED 3000 MG APAP/24 Hours 2 tabs 2023 Active 2023 30977 99186 0 Every 4 hours as needed By Mouth False Dulcolax (bisacodyl) 10 mg rectal suppository One Suppository per rectum PRN if Milk of Magnisia ineffective. Give on day 5 of no BM 1 sup 2023 Active 2023 95240 15091 1 Daily as needed Rectal False Fleet Enema 19 gram-7 gram/118 mL Administer per rectum PRN one time if dulcolax suppository not effective. Give on day 6 of no BM 1 2023 Active 2023 13655 98445 6 Daily as needed Rectal False Milk of Magnesia 400 mg/5 mL oral suspension [Magnesium hydroxide] PRN 30ml By Mouth Daily as needed for constipation one time daily if no BM, on day 4 of no BM (PRN refer to instructions) For Constipation 30 mL 2023 Active 2023 65241 47266 6 Daily as needed By Mouth False Aspirin 81 mg chewable tablet [generic] 81mg By Mouth Once daily For aortic stenosis 81mg 2023 Active 2023 19542 41358 6 Once daily By Mouth False Potassium gluconate 600 mg (99 mg) tablet [generic] 1 tablet By Mouth Once daily For supplement 1 tablet 2023 Active 2023 03148 93250 8 Once daily By Mouth False Centrum Silver 400 mcg-250 mcg chewable tablet 1 tablet By Mouth Once daily For supplement 1 tablet 2023 Active 2023 61685 70079 9 Once daily By Mouth False PreserVisio n AREDS 2 Plus Multivit 200 mcg-15 mcg-5 mg-1 mg capsule 1 tablet By Mouth Once daily For supplement 1 tablet 2023 Active 2023 25870 02721 4 Once daily By Mouth False Problems [...] history of (healed) traumatic fracture 05/31/2024 Active VITAL SIGNS Date Time Diastolic blood pressure Systolic blood pressure Body height Body weight Temperature SpO2 Blood Sugar Pulse Respirations 36080 0 79.00 mm[Hg] - Sitting 136.00 mm[Hg] - Sitting 97.90 Tympanic 84.00/ min 18.00/min 0 20748 1 62 NI 910 46920 1 910 14006 0 79.00 mm[Hg] - Sitting 136.00 mm[Hg] - Sitting 62 NI 75.80 NI 97.90 Tympanic 98.00 % 84.00/ min 18.00/min 910 35259 0 79.00 mm[Hg] - Sitting 136.00 mm[Hg] - Sitting 97.90 Tympanic 84.00/ min 18.00/min 910 29127 9 81113 5 75.80 NI 91 55848 0 62.00 mm[Hg] - Sitting 110.00 mm[Hg] - Sitting 98.70 Forehead Scan 96.00 % 87.00/ min 16.00/min 07879 0 80.00/ min
[2024-07-02 07:41] LABS: Hematocrit (blood only) 36.6 % (37.0-47.0); Hemoglobin 11.8 g/dl (12.0-16.0); Mean Corpuscular Hgb Conc 32.2 g/dL (32.0-36.0); Mean Corpuscular Volume 96.1 fL (80.0-100.0); Platelet Count 194 K/uL (130-400); RDW Coefficient of Variation 13.7 % (11.5-14.5); RDW Standard Deviation 49.1 fL (36.4-46.3); Red Blood Count 3.81 M/uL (4.20-5.40); White Blood Count 5.93 K/ul (4.8-10.8)
[2024-07-02 07:59] LABS: BUN Creatinine Ratio 22.2 (10-20); Calcium 9.5 mg/dl (8.6-10.3); Creatinine Clr Calc Pharmacy 36.6 ml/min; Potassium 4.4 mmol/L (3.5-5.1)
--- NOTE | 2024-07-02 11:39 | Hospitalist Progress Note ---
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 Suspect patient may have persistent post brain injury vertigo Low suspicion for cardiac arrhythmia Consult PT for vestibular evaluation Trial of meclizine Orthostatic vitals essentially unremarkable, would like to observe off all antihypertensive medications Urinalysis did not have any bacteria, suspect chronic pyuria, patient asymptomatic. Will discontinue antibiotics Case management, patient was just recently in rehab facility and discharged home was getting outpatient physical therapy. Patient may need to return to rehab Encouraged patient to increase protein in her diet. Patient reports trying numerous 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s and not tolerating them. Patient does states she eats ice cream, may enjoy a Magic cup or something similar, dietitian consultation Phone update to patient's daughter. She reports they have tried various shakes and improving her diet. She also reports that the patient may be willing to consider assisted living. Admission and Anticipated Discharge Date Admission Date: July 01, 2024 Subjective Patient states she feels a little bit better. She describes vertigo especially with positional changes. She does not feel that she has ever been evaluated for vestibular dysfunction. She is quite insistent that she eats well at home Physical Exam Physical Exam: Constitutional: Alert, frail, cachectic HEENT: Mucous membranes moist. Lungs: Clear to auscultation, decreased, no wheezes rales or rhonchi CV: S1-S2, regular, systolic murmur Abdomen: Soft, nontender, nondistended Extremities: No significant edema Neuro: No focal deficits, generalized weakness Psych: Cooperative, normal mood Results & Data Results & Data Vital Signs (Past 12 Hours) Vital Signs Temp Pulse Pulse Resp BP Pulse Ox O2 Del Method 07/02/24 08:52 Room Air 07/02/24 07:44 36.3 C L 59 L 16 116/61 97 Room Air 07/02/24 07:00 59 L 07/02/24 04:29 36.5 C 59 L 20 103/54 L 96 Room Air 07/02/24 00:35 36.3 C L 63 20 126/68 96 Room Air Diagnostic Findings Reviewed imaging, laboratory and diagnostic studies. Pertinent findings as b elow. Orthostatic vitals reviewed, not overly positive Electrolytes within normal range Creatinine 0.54 CBC stable
[2024-07-02] MEDS: MECLIZINE 12.5 MG TAB PO SCH (13:38)
[2024-07-02] MEDS ORDERED: cefTRIAXone SODIUM 1,000 MG/50 ML BAG IV SCH (15:00)
[2024-07-03] MEDS: FAMOTIDINE 20 MG TAB PO SCH (08:41)
--- NOTE | 2024-07-03 10:40 | Hospitalist Progress Note ---
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 Acute stroke has been ruled out, vestibular cause for symptoms has also been ruled out. Continue meclizine Continue therapies Urinary tract infection has been ruled out, no need for any additional antibiotics Communication with dietitian, has been working with the patient to optimize her protein intake. Patient has chronic esophageal dysphagia, has required dilatations in the past. Patient not interested in any further procedures. Discussed diet consistency modification. Will consult speech to see if they have any further recommendations. However suspect ultimately it is dietary modifications that will help the best. 's case management to evaluate and pursue possible rehab placement Orthostasis essentially resolved and no longer an issue for patient's symptoms. Continue to hold all antihypertensive medications. Blood pressures and heart rates controlled. Phone conversation with patient's daughter. She states that patient often declines using a walker at home, is very concerned about gaining weight and does not eat as much as she needs due to this concern of weight gain. Understands patient may need additional rehabilitation at a facility. 51 minutes spent coordinating care, evaluation patient bedside, communication with staff and family Admission and Anticipated Discharge Date Admission Date: July 01, 2024 Subjective Patient reports as she continues to have intermittent bouts of vertigo/dizziness Physical Exam Physical Exam: Constitutional: Alert, frail, cachectic, weak HEENT: Mucous membranes moist. Lungs: Clear to auscultation, decreased, no wheezes rales or rhonchi CV: S1-S2, regular Abdomen: Soft, nontender, nondistended Extremities: No significant edema Neuro: No focal deficits, generalized weakness Psych: Cooperative, normal mood Results & Data Results & Data Vital Signs (Past 12 Hours) Vital Signs Temp Pulse Resp BP Pulse Ox O2 Del Method 07/03/24 08:56 Room Air 07/03/24 07:49 36.4 C L 63 18 123/66 95 Room Air 07/02/24 23:32 36.5 C 70 20 114/67 97 Room Air Diagnostic Findings Reviewed imaging, laboratory and diagnostic studies. Pertinent findings as below. Physical therapy evaluated patient today, no evidence of vestibular etiology for her symptoms Urine culture no specific growth
[2024-07-03] MEDS: MECLIZINE HCL 25 MG TAB PO SCH (14:29)
--- NOTE | 2024-07-04 14:55 | Hospitalist Progress Note ---
Date of Service July 04, 2024 Assessment & Plan (1) Vertigo due to brain injury: Plan: Patient presents to the emergency room with complaints of dizziness and vertigo. 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 Acute stroke has been ruled out, vestibular cause for symptoms has also been ruled out. Urinary tract infection has been ruled out, no need for any additional antibiotics No orthostatic symptoms and/or changes Dizziness could be part of the problem with orthostasis Strongly advised to take precaution to avoid any fall and take time to initiate any activities Continue meclizine as needed and continue PT and OT PT recommended rehab and she has been waiting to go to rehab (2) Orthostasis: Plan: No significant orthostatic changes (3) Physical deconditioning: (4) Protein calorie malnutrition: Plan: Appreciate dietitian input and recommendation Strongly advised to follow the diet as per the dietitian (5) History of traumatic head injury: Plan: Could be the reason for ongoing dizziness (6) Esophageal dysphagia: (7) Esophageal stricture: Plan Note from prior hospitalist: Patient presents to the emergency room with complaints of dizziness and vertigo. 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 Acute stroke has been ruled out, vestibular cause for symptoms has also been ruled out. Continue meclizine Continue therapies Urinary tract infection has been ruled out, no need for any additional antibiotics Communication with dietitian, has been working with the patient to optimize her protein intake. Patient has chronic esophageal dysphagia, has required dilatations in the past. Patient not interested in any further procedures. Discussed diet consistency modification. Will consult speech to see if they have any further recommendations. However suspect ultimately it is dietary modifications that will help the best. 's case management to evaluate and pursue possible rehab placement Orthostasis essentially resolved and no longer an issue for patient's symptoms. Continue to hold all antihypertensive medications. Blood pressures and heart rates controlled. Phone conversation with patient's daughter. She states that patient often declines using a walker at home, is very concerned about gaining weight and does not eat as much as she needs due to this concern of weight gain. Understands patient may need additional rehabilitation at a facility. 51 minutes spent coordinating care, evaluation patient bedside, communication with staff and family Admission and Anticipated Discharge Date Admission Date: July 01, 2024 Subjective 07/04/2024 The patient was seen and examined in medical telemetry unit She was admitted with ongoing dizziness and ambulatory dysfunction and has been ruled out for any acute stroke Her dizziness seems to be low blood pressure with orthostatic changes Has been feeling little better since admission PT recommended rehab Review of Systems Review of Systems: All systems reviewed and are unremarkable except as noted below Physical Exam Physical Exam: Lying in bed without any acute distress Constitutional: + ill appearing and average body habitus Eyes: PERRL, conjunctivae normal, anicteric sclerae ENMT: external ear and nose normal, oropharynx normal Neck: trachea midline, no thyromegaly Respiratory: no respiratory distress Auscultation: lungs clear to auscultation bilaterally Cardiovascular: Rate/Rhythm: regular rate and regular rhythm; not tachycardic Heart Sounds: normal S1, normal S2 and + murmur Extremities: no edema Gastrointestinal (Abdomen): Inspection/Auscultation: normal bowel sounds; abdomen not distended Percussion/Palpation: abdomen soft; abdomen nontender Musculoskeletal: No acute arthritis involving any of the joint Neurologic: normal touch/pain/proprioception and moves all extremities; no focal motor deficits Lymphatic: no cervical or axillary lymphadenopathy Results & Data Results & Data Vital Signs (Past 12 Hours) Vital Signs Temp Pulse Resp BP Pulse Ox O2 Del Method 07/04/24 11:56 36.6 C 66 16 124/64 96 Room Air 07/04/24 08:38 Room Air 07/04/24 07:52 36.5 C 63 20 111/72 97 Room Air Medications Administered Current Inpatient Medications Acetaminophen (Acetaminophen 325 Mg Tab) 650 mg PO Q4H PRN PRN Reason: Pain or Fever Stop: 07/31/24 17:01 Famotidine (Famotidine 20 Mg Tab) 20 mg PO BID ABBE Stop: 08/02/24 08:59 Last Admin: 07/04/24 08:21 Dose: 20 mg Heparin Sodium (Porcine) (Heparin Sod 5,000 Unit/0.5 Ml Vial) 5,000 units SQ Q12 ABBE Stop: 07/31/24 20:59 Last Admin: 07/04/24 08:24 Dose: 5,000 units Meclizine HCl (Meclizine Hcl 25 Mg Tab) 25 mg PO TID ABBE Stop: 08/02/24 13:59 Last Admin: 07/04/24 14:12 Dose: 25 mg Ondansetron HCl (Ondansetron Inj 2 Mg/Ml 2 Ml Vial) 4 mg IV Q6H PRN PRN Reason: Nausea Stop: 07/31/24 17:01 Polyethylene Glycol (Polyethylene (Miralax) 17 Gm Pack) 17 gm PO DAILY PRN PRN Reason: Constipation Stop: 07/31/24 17:01
--- NOTE | 2024-07-05 14:10 | Hospitalist Progress Note ---
Date of Service July 05, 2024 Assessment & Plan (1) Vertigo due to brain injury: Plan: Patient presents to the emergency room with complaints of dizziness and vertigo. 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 Acute stroke has been ruled out, vestibular cause for symptoms has also been ruled out. Urinary tract infection has been ruled out, no need for any additional antibiotics No orthostatic symptoms and/or changes Dizziness could be part of the problem with orthostasis Strongly advised to take precaution to avoid any fall and take time to initiate any activities Continue meclizine as needed and continue PT and OT PT recommended rehab and she has been waiting to go to rehab She is still has minimal dizziness but symptomatically much better She has been waiting for a bed to be transferred She has had an episode of confusion last evening which seems to be resolved and at her baseline right now The daughter wanted to have urine checked and that was sent for culture and sensitivity Otherwise remains stable to be transferred (2) Orthostasis: Plan: No significant orthostatic changes (3) Physical deconditioning: (4) Protein calorie malnutrition: Plan: Appreciate dietitian input and recommendation Strongly advised to follow the diet as per the dietitian (5) History of traumatic head injury: Plan: Could be the reason for ongoing dizziness (6) Esophageal dysphagia: (7) Esophageal stricture: Plan Note from prior hospitalist: Patient presents to the emergency room with complaints of dizziness and vertigo. 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 Acute stroke has been ruled out, vestibular cause for symptoms has also been ruled out. Continue meclizine Continue therapies Urinary tract infection has been ruled out, no need for any additional antib iotics Communication with dietitian, has been working with the patient to optimize her protein intake. Patient has chronic esophageal dysphagia, has required dilatations in the past. Patient not interested in any further procedures. Discussed diet consistency modification. Will consult speech to see if they have any further recommendations. However suspect ultimately it is dietary modifications that will help the best. 's case management to evaluate and pursue possible rehab placement Orthostasis essentially resolved and no longer an issue for patient's symptoms. Continue to hold all antihypertensive medications. Blood pressures and heart rates controlled. Phone conversation with patient's daughter. She states that patient often declines using a walker at home, is very concerned about gaining weight and does not eat as much as she needs due to this concern of weight gain. Understands patient may need additional rehabilitation at a facility. 51 minutes spent coordinating care, evaluation patient bedside, communication with staff and family Admission and Anticipated Discharge Date Admission Date: July 01, 2024 Subjective 07/04/2024 The patient was seen and examined in medical telemetry unit She was admitted with ongoing dizziness and ambulatory dysfunction and has been ruled out for any acute stroke Her dizziness seems to be low blood pressure with orthostatic changes Has been feeling little better since admission PT recommended rehab 07/05/2024 The patient was seen and examined in medical telemetry unit She was noted to be more confused last evening but this morning she seems to be back to her baseline Does not seem to be in acute confusion during my examination this morning She has been ambulating in the room in front of me with the help of walker and some time without Review of Systems Review of Systems: All systems reviewed and are unremarkable except as noted below Physical Exam Physical Exam: Lying in bed without any acute distress Constitutional: + ill appearing and average body habitus Eyes: PERRL, conjunctivae normal, anicteric sclerae ENMT: external ear and nose normal, oropharynx normal Neck: trachea midline, no thyromegaly Respiratory: no respiratory distress Auscultation: lungs clear to auscultation bilaterally Cardiovascular: Rate/Rhythm: regular rate and regular rhythm; not tachycardic Heart Sounds: normal S1, normal S2 and + murmur Extremities: no edema Gastrointestinal (Abdomen): Inspection/Auscultation: normal bowel sounds; abdomen not distended Percussion/Palpation: abdomen soft; abdomen nontender Musculoskeletal: no acute arthritis involving any of the joint Neurologic: normal touch/pain/proprioception and moves all extremities; no focal motor deficits Lymphatic: no cervical or axillary lymphadenopathy Results & Data Results & Data Vital Signs (Past 12 Hours) Vital Signs Temp Pulse Resp BP Pulse Ox O2 Del Method 07/05/24 13:40 36.4 C L 77 18 118/71 98 Room Air 07/05/24 10:39 36.6 C 75 18 146/67 H 97 Room Air 07/05/24 07:27 Room Air 07/05/24 07:17 36.3 C L 75 16 153/71 H 97 Room Air Medications Administered Current Inpatient Medications Acetaminophen (Acetaminophen 325 Mg Tab) 650 mg PO Q4H PRN PRN Reason: Pain or Fever Stop: 07/31/24 17:01 Famotidine (Famotidine 20 Mg Tab) 20 mg PO BID [facility] Stop: 08/02/24 08:59 Last Admin: 07/05/24 09:21 Dose: 20 mg Heparin Sodium (Porcine) (Heparin Sod 5,000 Unit/0.5 Ml Vial) 5,000 units SQ Q12 ABBE Stop: 07/31/24 20:59 Last Admin: 07/05/24 09:25 Dose: 5,000 units Meclizine HCl (Meclizine Hcl 25 Mg Tab) 25 mg PO TID [facility] Stop: 08/02/24 13:59 Last Admin: 07/05/24 14:00 Dose: 25 mg Ondansetron HCl (Ondansetron Inj 2 Mg/Ml 2 Ml Vial) 4 mg IV Q6H PRN PRN Reason: Nausea Stop: 07/31/24 17:01 Polyethylene Glycol (Polyethylene (Miralax) 17 Gm Pack) 17 gm PO DAILY PRN PRN Reason: Constipation Stop: 07/31/24 17:01
[2024-07-06 07:08] LABS: BUN Creatinine Ratio 24.1 (10-20); Calcium 9.4 mg/dl (8.6-10.3); Creatinine Clr Calc Pharmacy 34.3 ml/min; Potassium 4.1 mmol/L (3.5-5.1)
--- NOTE | 2024-07-06 10:48 | Hospitalist Progress Note ---
Date of Service July 06, 2024 Assessment & Plan (1) Orthostasis: (2) Protein calorie malnutrition: (3) Suspected UTI: Plan Patient is 88-year-old female with PMH spasmodic dysphonia, essential tremor, HTN, balance problems, recurrent UTI who presented to the ER with complaint of dizziness and weakness. Dizziness Weakness Palpitations On admission, in ER afebrile, P: 65, LR: 22, BP 158/61, O2 sat 100% on room air UA On admission: 3+leuk esterase, 21-50 WBC, 3-5 epithelial, no bacteria. Urine cx since recommending repeat collection repeat urine culture pending No leukocytosis, no significant electrolyte abnormality, negative troponin CT head: No acute intracranial findings CTA head: No large vessel occlusion, no intracranial aneurysm CTA neck: Unremarkable CTA neck CXR: No acute infiltrate, mild cardiomegaly per my interpretation MRI brain unremarkable Reported attempted ambulation in ER with dizziness symptoms. At rest is asymptomatic +orthostatic in ER Suspect orthostatic hypotension, possible vertigo component, possible post head injury/concussion component. ?arrhythmia, tachybrady syndrome with hx palpitations Patient expresses sensation of more left leg weakness with ambulating. On exam has bilateral lower extremity weakness and do not appreciate greater left-sided weakness Monitor BP Compression stockings Orthostatic vitals twice daily PT/OT eval- recommending rehab Continue to monitor on telemetry. Patient may benefit from outpatient rn cardiac Abnormal UA History recurrent UTI UA On admission: 3+leuk esterase, 21-50 WBC, 3-5 epithelial, no bacteria. Urine cx since recommending repeat collection repeat urine culture pending Denies urinary symptoms for >1month since drinking cranberry juice daily In ER given Rocephin 2GM IV IV Rocephin has since been discontinued, continue based on pending urine culture results HTN In ER and on admission BP's variable Will monitor and if continued significant elevation may need to consider restarting BP agent Previously on amlodipine 2.5mg that has been discontinued secondary to orthostasis. continue to monitor Protein Calorie Malnutrition BMI: 13.5 Recommend 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s. Previously dietitian had recommended 3 times daily. Patient states does not like the flavor and texture but would be willing to try daily and will try chocolate flavor this time. continue dietary recommendation Essential Tremor Previously on propranolol which had been discontinued secondary to orthostatic hypotension Will continue to hold propranolol Diet: vegetarian, soft bite sized DVT Prophylaxis: Heparin SQ Dispo: awaiting rehab placement Admission and Anticipated Discharge Date Admission Date: July 01, 2024 Subjective patient was seen multiple times during the day. Initially seen in the early a.m., was very sleepy. However once a week and denied any acute concerns. Later reassessed at about 5:08 PM. Patient notes that she does not remember much from this morning. She states that she feels much better from this morning and that her dizziness has improved greatly from when she came in. Still denying any other acute concerns. Patient's daughter Garima was contacted and updated before patient's reassessment. All questions answered to the best of this provider's ability. Review of Systems Review of Systems: All systems reviewed & are unremarkable except as noted in Subjective Physical Exam Physical Exam: General: Alert, oriented. No acute distress, cachectic Psych: Appropriate mood and affect HEENT: NC/AT CV: RRR Resp: Breath sounds clear bilaterally, no increased effort of breathing. Abdomen:Soft Extremities: No edema in lower extremities bilaterally. Results & Data Results & Data Vital Signs (Past 12 Hours) Vital Signs Temp Pulse Resp BP Pulse Ox O2 Del Method 07/06/24 07:46 36.3 C L 65 18 145/65 H 98 Room Air 07/05/24 23:53 36.3 C L 100 H 20 151/69 H 99 Room Air 07/05/24 23:28 Room Air Diagnostic Findings Chest X-Ray 07/01/24 10:42 SINGLE VIEW CHEST CLINICAL HISTORY: Neurological deficit. Stroke like symptoms. FINDINGS: An AP, portable, upright chest radiograph is compared to study dated 05/23/2024. Correlation is made with chest CT dated 02/12/2023. The examination is degraded by portable technique and patient rotation. The heart is mildly enlarged noting atherosclerotic calcification of the thoracic aorta. The pulmonary vasculature is noncongested. Pleural parenchymal scarring is again seen at the apices. Chronic interstitial thickening similar to previous. Foci of parenchymal scarring are seen throughout both lungs. A calcified granuloma is seen in the left lower lung. No airspace consolidation, large pleural effusion, or pneumothorax is seen. The skeletal structures are osteopenic. The bony thorax is grossly intact. IMPRESSION: No acute cardiopulmonary abnormality is identified. ACT 112: Negative or not required by law. Electronically signed by: Marcelino Cruz M.D. 07/01/2024 11:[address] 07/01/24 10:42 CT SCAN OF THE BRAIN WITHOUT IV CONTRAST CLINICAL HISTORY: Neurologic deficit. Stroke like symptoms. COMPARISON STUDY: CT of the brain dated 05/23/2024. TECHNIQUE: Unenhanced axial CT scan of the brain is performed from the vertex to the skull base. A dose lowering technique was utilized adhering to the principles of ALARA. CT DOSE: 547.75 mGy.cm FINDINGS: Brain parenchyma: There is age-related involutional change noting moderate subcortical and periventricular microangiopathic disease. There is no hemorrhage, mass effect, or evidence of acute territorial ischemia by CT criteria. Mineralization is noted in the basal ganglia. Pulido-white matter differentiation is preserved. No extra-axial fluid collection is seen. Ventricles, sulci, cisterns: Prominent secondary to involutional change. Intracranial vasculature: There is atherosclerotic calcification of the cavernous carotid and vertebral arteries.. Calvarium: Unremarkable. Sinuses and mastoids: The visualized paranasal sinuses are clear. The mastoid air cells are well pneumatized. Orbits: The bony orbits are grossly intact. There are bilateral ocular lens implants. IMPRESSION: There is no hemorrhage, mass effect, or evidence of acute territorial ischemia by CT criteria. ACT 112: Negative or not required by law. Electronically signed by: Marcelino Cruz M.D. 07/01/2024 11:34 AM Head CTA 07/01/24 10:42 CTA ANGIOGRAPHY OF THE HEAD CLINICAL HISTORY: neuro deficit, acute stroke suspected COMPARISON STUDY: Head CT May 23, 2024. TECHNIQUE: Helical axial images of the head were obtained following uneventful intravenous administration of 120 cc of Optiray. Sagittal and coronal reconstructions were viewed as well as maximal intensity projections on an independent 3-D workstation. Automated exposure control was utilized for the study. A dose lowering technique was utilized adhering to the principles of ALARA. CT DOSE: 264.57 mGy.cm FINDINGS: No acute intracranial hemorrhage, midline shift or mass effect is present. Ventricular system is unremarkable. The basal cisterns are patent. There are no extra-axial collections. The bilateral M1, M2, A1 and A2 segments are patent. The left vertebral artery is dominant. The right vertebral artery ends in PICA. No large vessel occlusion is identified. There is no intracranial aneurysm. There is persistence of the right posterior cerebral artery. IMPRESSION: No large vessel occlusion. No intracranial aneurysm. ACT 112: Negative or not required by law. Electronically signed by: Jose A Harris M.D. 07/01/2024 1:58 PM Neck CTA 07/01/24 10:42 CT ANGIOGRAM OF THE NECK CLINICAL HISTORY: Neurological deficit. Stroke like symptoms. Dizziness. COMPARISON STUDY: No priors. TECHNIQUE: Following the IV administration of 120 of Optiray 320, CT angiogram of the neck was performed from the aortic arch to the skull base. Images are reviewed in the axial, sagittal, and coronal planes. 3-D MIPS images are created and assessed. IV contrast was administered without complication. All measurements were calculated based on NASCET criteria. A dose lowering technique was utilized adhering to the principles of ALARA. FINDINGS: Thoracic aorta: Visualized portions of the thoracic aorta are normal in caliber. The aortic arch demonstrates standard 3-vessel anatomy. Right carotid arterial system: The right common carotid artery is widely patent, as are the right internal and external carotid arteries. Calcified plaque is seen in the carotid bulb. Left carotid arterial system: The left common carotid artery is widely patent, as are the left internal and external carotid arteries. Calcified plaque is noted in the carotid bulb. Vertebral arteries: Widely patent bilaterally noting left-sided dominance. The right vertebral artery is diminutive and terminates as the PICA. Subclavian arteries: Widely patent bilaterally. Intracranial vasculature: The visualized intracranial vessels at the skull base are patent. There is origin of the right posterior cerebral artery. Jugular veins: Patent bilaterally. Brain parenchyma: The visualized brain parenchyma the skull base is within normal limits. Lung apices: Pleural parenchymal scarring is seen at the apices. The imaged upper lobe lung parenchyma is otherwise clear. Soft tissues: The visualized pharyngeal soft tissues are normal in appearance noting angiographic phase technique. The oropharyngeal airway appears widely patent. The salivary and thyroid glands are normal in appearance. No cervical lymphadenopathy is seen. Skeletal structures: The skeletal structures are osteopenic. The visualized calvarium at the skull base appears intact. The imaged cervical spine is maintained noting multilevel spondylosis. Sinuses and mastoids: The visualized paranasal sinuses are clear. The mastoid air cells are well-pneumatized. IMPRESSION: Unremarkable CT angiogram of the neck. ACT 112: Negative or not required by law. Electronically signed by: Marcelino Cruz M.D. 07/01/2024 1:16 PM Brain MRI 07/01/24 15:12 MRI OF THE BRAIN WITHOUT IV CONTRAST CLINICAL HISTORY: Dizziness. COMPARISON STUDY: CT of the brain dated 07/01/2024. TECHNIQUE: MRI of the brain was performed utilizing various T1 and T2-weighted sequences in the axial, sagittal, and coronal planes. IV contrast was not administered for this examination. FINDINGS: Brain parenchyma: There is age-related involutional change noting mild subcortical and periventricular microangiopathic disease. There is no hemorrhage or mass effect. There is no restricted diffusion to suggest acute ischemia. Mineralization is noted in the basal ganglia. Pulido-white matter differentiation is preserved. No extra-axial fluid collection is seen. The cerebellar tonsils are normal in configuration. Ventricles, sulci, and cisterns: Prominent secondary to involutional change. Pituitary and sella: Unremarkable. Intracranial vasculature: Normal flow voids are maintained at the skull base. Orbits: The bony orbits are grossly intact. Orbital contents are normal in appearance noting bilateral ocular lens implants. Sinuses and mastoids: Clear. Calvarium: Unremarkable. Cervical cord: Partially visualized cervical spinal cord is normal in morphology and signal intensity. IMPRESSION: No acute intracranial abnormality. ACT 112: Negative or not required by law. Electronically signed by: Marcelino Cruz M.D. 07/01/2024 5:01 PM
[2024-07-06] MEDS: ACETAMINOPHEN 325 MG TAB PO PRN (12:36)
[2024-07-07 06:51] LABS: Hematocrit (blood only) 35.2 % (37.0-47.0); Hemoglobin 11.7 g/dl (12.0-16.0); Mean Corpuscular Hemoglobin 31.4 pg (25.0-34.0); Mean Corpuscular Hgb Conc 33.2 g/dL (32.0-36.0); Mean Corpuscular Volume 94.4 fL (80.0-100.0); Mean Platelet Volume 10.5 fL (9.4-12.4); Platelet Count 206 K/uL (130-400); RDW Coefficient of Variation 13.2 % (11.5-14.5); RDW Standard Deviation 45.9 fL (36.4-46.3); Red Blood Count 3.73 M/uL (4.20-5.40); White Blood Count 7.13 K/ul (4.8-10.8)
[2024-07-07 07:18] LABS: Calcium 9.5 mg/dl (8.6-10.3); Creatinine Clr Calc Pharmacy 28.5 ml/min; Phosphorus 3.1 mg/dl (2.5-4.9); Potassium 4.2 mmol/L (3.5-5.1)
--- NOTE | 2024-07-07 14:11 | Hospitalist Progress Note ---
Date of Service July 07, 2024 Assessment & Plan (1) Orthostasis: (2) Protein calorie malnutrition: (3) Suspected UTI: Plan Patient is 88-year-old female with PMH spasmodic dysphonia, essential tremor, HTN, balance problems, recurrent UTI who presented to the ER with complaint of dizziness and weakness. Dizziness Weakness Palpitations Acute metabolic encephalopathy on possible early dementia On admission, in ER afebrile, P: 65, LR: 22, BP 158/61, O2 sat 100% on room air UA On admission: 3+leuk esterase, 21-50 WBC, 3-5 epithelial, no bacteria. Urine cx since recommending repeat collection repeat urine culture pending No leukocytosis, no significant electrolyte abnormality, negative troponin CT head: No acute intracranial findings CTA head: No large vessel occlusion, no intracranial aneurysm CTA neck: Unremarkable CTA neck CXR: No acute infiltrate, mild cardiomegaly per my interpretation MRI brain unremarkable Reported attempted ambulation in ER with dizziness symptoms. At rest is asymptomatic +orthostatic in ER Suspect orthostatic hypotension, possible vertigo component, possible post head injury/concussion component. ?arrhythmia, tachybrady syndrome with hx palpitations Patient expresses sensation of more left leg weakness with ambulating. On exam has bilateral lower extremity weakness and do not appreciate greater left-sided weakness Monitor BP Compression stockings Orthostatic vitals twice daily PT/OT eval- recommending rehab Delirium precautions. Frequent reorientation, avoid sedating medications Continue to monitor on telemetry. Patient may benefit from outpatient cardiac catheterization technologist Abnormal UA History recurrent UTI UA On admission: 3+leuk esterase, 21-50 WBC, 3-5 epithelial, no bacteria. Urine cx since recommending repeat collection repeat urine culture pending Denies urinary symptoms for >1month since drinking cranberry juice daily In ER given Rocephin 2GM IV IV Rocephin has since been discontinued, continue based on pending urine culture results HTN In ER and on admission BP's variable Will monitor and if continued significant elevation may need to consider restarting BP agent Previously on amlodipine 2.5mg that has been discontinued secondary to orthostasis. continue to monitor Protein Calorie Malnutrition BMI: 13.5 Recommend 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s. Previously dietitian had recommended 3 times daily. Patient states does not like the flavor and texture but would be willing to try daily and will try chocolate flavor this time. continue dietary recommendation Essential Tremor Previously on propranolol which had been discontinued secondary to orthostatic hypotension Will continue to hold propranolol Diet: vegetarian, soft bite sized DVT Prophylaxis: Heparin SQ Dispo: awaiting rehab placement Admission and Anticipated Discharge Date Admission Date: July 01, 2024 Subjective Patient was seen sitting in a chair near her bed. Alert and oriented x 1 Denied acute concerns but asking about potential discharge Daughter Garima called and updated at about 5 PM Review of Systems Review of Systems: All systems reviewed & are unremarkable except as noted in Subjective Physical Exam Physical Exam: General: Alert, orientedx1. No acute distress, cachectic Psych: Appropriate mood and affect, pleasantly confused HEENT: NC/AT CV: RRR Resp: Breath sounds clear bilaterally, no increased effort of breathing. Abdomen:Soft Extremities: No edema in lower extremities bilaterally. Results & Data Results & Data Vital Signs (Past 12 Hours) Vital Signs Temp Pulse Resp BP Pulse Ox O2 Del Method 07/07/24 14:07 36.4 C L 73 20 167/60 H 07/07/24 11:05 36.3 C L 70 20 131/66 98 Room Air 07/07/24 07:41 36.4 C L 74 20 154/76 H 96 Room Air 07/07/24 07:39 Room Air
[2024-07-08 06:53] LABS: Hemoglobin 12.5 g/dl (12.0-16.0); Mean Corpuscular Hemoglobin 31.2 pg (25.0-34.0); Mean Corpuscular Hgb Conc 32.9 g/dL (32.0-36.0); Mean Corpuscular Volume 94.8 fL (80.0-100.0); Mean Platelet Volume 10.5 fL (9.4-12.4); Platelet Count 217 K/uL (130-400); RDW Coefficient of Variation 13.2 % (11.5-14.5); Red Blood Count 4.01 M/uL (4.20-5.40); White Blood Count 5.84 K/ul (4.8-10.8)
[2024-07-08 07:14] LABS: Calcium 9.6 mg/dl (8.6-10.3); Creatinine Clr Calc Pharmacy 33.3 ml/min; Phosphorus 3.4 mg/dl (2.5-4.9); Potassium 3.9 mmol/L (3.5-5.1)
--- NOTE | 2024-07-08 12:34 | Hospitalist Progress Note ---
Date of Service July 08, 2024 Assessment & Plan (1) Orthostasis: (2) Protein calorie malnutrition: (3) Suspected UTI: Plan Patient is 88-year-old female with PMH spasmodic dysphonia, essential tremor, HTN, balance problems, recurrent UTI who presented to the ER with complaint of dizziness and weakness. Currently awaiting placement Dizziness Weakness Palpitations Acute metabolic encephalopathy on possible early dementia On admission, in ER afebrile, P: 65, LR: 22, BP 158/61, O2 sat 100% on room air UA On admission: 3+leuk esterase, 21-50 WBC, 3-5 epithelial, no bacteria. Urine cx since recommending repeat collection repeat urine culture pending No leukocytosis, no significant electrolyte abnormality, negative troponin CT head: No acute intracranial findings CTA head: No large vessel occlusion, no intracranial aneurysm CTA neck: Unremarkable CTA neck CXR: No acute infiltrate, mild cardiomegaly per my interpretation MRI brain unremarkable Reported attempted ambulation in ER with dizziness symptoms. At rest is asymptomatic +orthostatic in ER Suspect orthostatic hypotension, possible vertigo component, possible post head injury/concussion component. ?arrhythmia, tachybrady syndrome with hx palpitations Patient expresses sensation of more left leg weakness with ambulating. On exam has bilateral lower extremity weakness and do not appreciate greater left-sided weakness Monitor BP Compression stockings Orthostatic vitals twice daily PT/OT eval- recommending rehab Delirium precautions. Frequent reorientation, avoid sedating medications Continue to monitor on telemetry. Patient may benefit from outpatient security monitor Abnormal UA History recurrent UTI UA On admission: 3+leuk esterase, 21-50 WBC, 3-5 epithelial, no bacteria. Urine cx since recommending repeat collection repeat urine culture NGTD Denies urinary symptoms for >1month since drinking cranberry juice daily In ER given Rocephin 2GM IV IV Rocephin has since been discontinued, continue based on pending urine culture results HTN In ER and on admission BP's variable Will monitor and if continued significant elevation may need to consider restarting BP agent Previously on amlodipine 2.5mg that has been discontinued secondary to orthostasis. continue to monitor Protein Calorie Malnutrition BMI: 13.5 Recommend 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s. Previously dietitian had recommended 3 times daily. Patient states does not like the flavor and texture but would be willing to try daily and will try chocolate flavor this time. continue dietary recommendation Essential Tremor Previously on propranolol which had been discontinued secondary to orthostatic hypotension Will continue to hold propranolol Diet: vegetarian, soft bite sized DVT Prophylaxis: Heparin SQ Dispo: awaiting rehab placement Admission and Anticipated Discharge Date Admission Date: July 01, 2024 Subjective patient was seen sitting in the chair at bedside Denied acute concerns but did note she had a headache earlier Notified by case management that [id number] would be needed for this patient for placement as insurance was denying SNF [id number] completed and denial was upheld. Insurance advising on long-term placement consideration discussed further with patient's daughter who stated that they had previously toward institution such as [facility] and would like more information Information relayed to case management who stated they would contact daughter to discuss further. Review of Systems Review of Systems: All systems reviewed & are unremarkable except as noted in Subjective Physical Exam Physical Exam: General: Alert, orientedx1. No acute distress, cachectic Psych: Appropriate mood and affect, pleasantly confused HEENT: NC/AT CV: RRR Resp: Breath sounds clear bilaterally, no increased effort of breathing. Abdomen:Soft Extremities: No edema in lower extremities bilaterally. Results & Data Results & Data Vital Signs (Past 12 Hours) Vital Signs Temp Pulse Resp BP Pulse Ox O2 Del Method 07/08/24 07:51 36 C L 64 18 153/64 H 99 Room Air 07/08/24 06:01 36.7 C 66 16 147/74 H 98 Room Air
[2024-07-09 06:09] LABS: Hematocrit (blood only) 33.5 % (37.0-47.0); Hemoglobin 11.2 g/dl (12.0-16.0); Mean Corpuscular Hgb Conc 33.4 g/dL (32.0-36.0); Mean Corpuscular Volume 92.8 fL (80.0-100.0); Mean Platelet Volume 10.4 fL (9.4-12.4); Platelet Count 233 K/uL (130-400); RDW Coefficient of Variation 13.1 % (11.5-14.5); RDW Standard Deviation 44.7 fL (36.4-46.3); Red Blood Count 3.61 M/uL (4.20-5.40); White Blood Count 5.21 K/ul (4.8-10.8)
[2024-07-09 06:15] LABS: BUN Creatinine Ratio 27.6 (10-20); Calcium 9.4 mg/dl (8.6-10.3); Creatinine Clr Calc Pharmacy 34.5 ml/min; Magnesium 1.9 mg/dl (1.7-2.4); Phosphorus 3.3 mg/dl (2.5-4.9)
--- NOTE | 2024-07-09 12:15 | Hospitalist Progress Note ---
Date of Service July 09, 2024 Assessment & Plan (1) Orthostasis: (2) Protein calorie malnutrition: (3) Suspected UTI: Plan Patient is 88-year-old female with PMH spasmodic dysphonia, essential tremor, HTN, balance problems, recurrent UTI who presented to the ER with complaint of dizziness and weakness. Currently awaiting placement Dizziness Weakness Palpitations Acute metabolic encephalopathy on possible early dementia On admission, in ER afebrile, P: 65, LR: 22, BP 158/61, O2 sat 100% on room air UA On admission: 3+leuk esterase, 21-50 WBC, 3-5 epithelial, no bacteria. Urine cx since recommending repeat collection repeat urine culture pending No leukocytosis, no significant electrolyte abnormality, negative troponin CT head: No acute intracranial findings CTA head: No large vessel occlusion, no intracranial aneurysm CTA neck: Unremarkable CTA neck CXR: No acute infiltrate, mild cardiomegaly per my interpretation MRI brain unremarkable Reported attempted ambulation in ER with dizziness symptoms. At rest is asymptomatic +orthostatic in ER Suspect orthostatic hypotension, possible vertigo component, possible post head injury/concussion component. ?arrhythmia, tachybrady syndrome with hx palpitations Patient expresses sensation of more left leg weakness with ambulating. On exam has bilateral lower extremity weakness and do not appreciate greater left-sided weakness Monitor BP Compression stockings Orthostatic vitals twice daily PT/OT eval- recommending rehab Delirium precautions. Frequent reorientation, avoid sedating medications Continue to monitor on telemetry. Patient may benefit from outpatient cardiac nurse Abnormal UA History recurrent UTI UA On admission: 3+leuk esterase, 21-50 WBC, 3-5 epithelial, no bacteria. Urine cx since recommending repeat collection repeat urine culture NGTD Denies urinary symptoms for >1month since drinking cranberry juice daily In ER given Rocephin 2GM IV IV Rocephin has since been discontinued, continue based on pending urine culture results HTN In ER and on admission BP's variable Will monitor and if continued significant elevation may need to consider restarting BP agent Previously on amlodipine 2.5mg that has been discontinued secondary to orthostasis. continue to monitor Protein Calorie Malnutrition BMI: 13.5 Recommend 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s. Previously dietitian had recommended 3 times daily. Patient states does not like the flavor and texture but would be willing to try daily and will try chocolate flavor this time. continue dietary recommendation Essential Tremor Previously on propranolol which had been discontinued secondary to orthostatic hypotension Will continue to hold propranolol Diet: vegetarian, soft bite sized DVT Prophylaxis: Heparin SQ Dispo: awaiting rehab placement Admission and Anticipated Discharge Date Admission Date: July 01, 2024 Subjective patient was seen sitting in the chair at bedside Denied acute concerns noting she is getting frustrated with just sitting and waiting to be placed. States she is not a "money waster" Review of Systems Review of Systems: All systems reviewed & are unremarkable except as noted in Subjective Physical Exam Physical Exam: General: Alert, orientedx1. No acute distress, cachectic Psych: Appropriate mood and affect, pleasantly confused HEENT: NC/AT CV: RRR Resp: Breath sounds clear bilaterally, no increased effort of breathing. Abdomen:Soft Extremities: No edema in lower extremities bilaterally. Results & Data Results & Data Vital Signs (Past 12 Hours) Vital Signs Pulse Resp BP Pulse Ox O2 Del Method 07/09/24 08:00 Room Air 07/09/24 07:39 66 16 156/71 H 98 Room Air
--- NOTE | 2024-07-10 10:37 | Hospitalist Progress Note ---
Date of Service July 10, 2024 Assessment & Plan (1) Orthostasis: (2) Protein calorie malnutrition: (3) Suspected UTI: Plan Patient is 88-year-old female with PMH spasmodic dysphonia, essential tremor, HTN, balance problems, recurrent UTI who presented to the ER with complaint of dizziness and weakness. Currently awaiting placement Dizziness Weakness Palpitations Acute metabolic encephalopathy on possible early dementia On admission, in ER afebrile, P: 65, LR: 22, BP 158/61, O2 sat 100% on room air UA On admission: 3+leuk esterase, 21-50 WBC, 3-5 epithelial, no bacteria. Urine cx since recommending repeat collection repeat urine culture pending No leukocytosis, no significant electrolyte abnormality, negative troponin CT head: No acute intracranial findings CTA head: No large vessel occlusion, no intracranial aneurysm CTA neck: Unremarkable CTA neck CXR: No acute infiltrate, mild cardiomegaly per my interpretation MRI brain unremarkable Reported attempted ambulation in ER with dizziness symptoms. At rest is asymptomatic +orthostatic in ER Suspect orthostatic hypotension, possible vertigo component, possible post head injury/concussion component. ?arrhythmia, tachybrady syndrome with hx palpitations Patient expresses sensation of more left leg weakness with ambulating. On exam has bilateral lower extremity weakness and do not appreciate greater left-sided weakness Monitor BP Compression stockings Orthostatic vitals twice daily PT/OT eval- recommending rehab Delirium precautions. Frequent reorientation, avoid sedating medications Continue to monitor on telemetry. Patient may benefit from outpatient campus monitor Abnormal UA History recurrent UTI UA On admission: 3+leuk esterase, 21-50 WBC, 3-5 epithelial, no bacteria. Urine cx since recommending repeat collection repeat urine culture NGTD Denies urinary symptoms for >1month since drinking cranberry juice daily In ER given Rocephin 2GM IV IV Rocephin has since been discontinued, continue based on pending urine culture results HTN In ER and on admission BP's variable Will monitor and if continued significant elevation may need to consider restarting BP agent Previously on amlodipine 2.5mg that has been discontinued secondary to orthostasis. continue to monitor Protein Calorie Malnutrition BMI: 13.5 Recommend 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s. Previously dietitian had recommended 3 times daily. Patient states does not like the flavor and texture but would be willing to try daily and will try chocolate flavor this time. continue dietary recommendation Essential Tremor Previously on propranolol which had been discontinued secondary to orthostatic hypotension Will continue to hold propranolol Diet: vegetarian, soft bite sized DVT Prophylaxis: Heparin SQ Dispo: awaiting rehab placement Admission and Anticipated Discharge Date Admission Date: July 01, 2024 Subjective patient seen sitting in chair at bedside Denies acute concerns However wants to shower Review of Systems Review of Systems: All systems reviewed & are unremarkable except as noted in Subjective Physical Exam Physical Exam: General: Alert, orientedx1. No acute distress, cachectic Psych: Appropriate mood and affect, pleasantly confused HEENT: NC/AT CV: RRR Resp: Breath sounds clear bilaterally, no increased effort of breathing. Abdomen:Soft Extremities: No edema in lower extremities bilaterally. Results & Data Results & Data Vital Signs (Past 12 Hours) Vital Signs Temp Pulse Resp BP BP Pulse Ox O2 Del Method 07/10/24 07:41 36.5 C 65 16 122/56 L 96 Room Air 07/09/24 23:14 36.9 C 74 18 124/67 96 Room Air 07/09/24 23:03 Room Air
--- NOTE | 2024-07-11 10:19 | Hospitalist Progress Note ---
Date of Service July 11, 2024 Assessment & Plan (1) Orthostasis: (2) Protein calorie malnutrition: (3) Suspected UTI: Plan Patient is 88-year-old female with PMH spasmodic dysphonia, essential tremor, HTN, balance problems, recurrent UTI who presented to the ER with complaint of dizziness and weakness. Currently awaiting [facility] care placement Dizziness Weakness Palpitations Acute metabolic encephalopathy on possible early dementia On admission, in ER afebrile, P: 65, LR: 22, BP 158/61, O2 sat 100% on room air UA On admission: 3+leuk esterase, 21-50 WBC, 3-5 epithelial, no bacteria. Urine cx since recommending repeat collection repeat urine culture pending No leukocytosis, no significant electrolyte abnormality, negative troponin CT head: No acute intracranial findings CTA head: No large vessel occlusion, no intracranial aneurysm CTA neck: Unremarkable CTA neck CXR: No acute infiltrate, mild cardiomegaly per my interpretation MRI brain unremarkable Reported attempted ambulation in ER with dizziness symptoms. At rest is asymptom atic +orthostatic in ER Suspect orthostatic hypotension, possible vertigo component, possible post head injury/concussion component. ?arrhythmia, tachybrady syndrome with hx palpitations Patient expresses sensation of more left leg weakness with ambulating. On exam has bilateral lower extremity weakness and do not appreciate greater left-sided weakness Monitor BP Compression stockings Orthostatic vitals twice daily PT/OT eval- recommending rehab, denied. Pt currently awaiting [facility] placement Delirium precautions. Frequent reorientation, avoid sedating medications Continue to monitor on telemetry. Patient may benefit from outpatient warp bleaching vat tender Abnormal UA History recurrent UTI UA On admission: 3+leuk esterase, 21-50 WBC, 3-5 epithelial, no bacteria. Urine cx since recommending repeat collection repeat urine culture NGTD Denies urinary symptoms for >1month since drinking cranberry juice daily In ER given Rocephin 2GM IV IV Rocephin has since been discontinued, continue based on pending urine culture results HTN In ER and on admission BP's variable Will monitor and if continued significant elevation may need to consider restarting BP agent Previously on amlodipine 2.5mg that has been discontinued secondary to orthostasis. continue to monitor Protein Calorie Malnutrition BMI: 13.5 Recommend 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s. Previously dietitian had recommended 3 times daily. Patient states does not like the flavor and texture but would be willing to try daily and will try chocolate flavor this time. continue dietary recommendation Essential Tremor Previously on propranolol which had been discontinued secondary to orthostatic hypotension Will continue to hold propranolol Diet: vegetarian, soft bite sized DVT Prophylaxis: Heparin SQ [facility] Admission and Anticipated Discharge Date Admission Date: July 01, 2024 Subjective patient seen sitting in chair at bedside Denies acute concerns However wants to get out of the hospital Review of Systems Review of Systems: All systems reviewed & are unremarkable except as noted in Subjective Physical Exam Physical Exam: General: Alert, orientedx1. No acute distress, cachectic Psych: Appropriate mood and affect, pleasantly confused HEENT: NC/AT CV: RRR Resp: Breath sounds clear bilaterally, no increased effort of breathing. Abdomen:Soft Extremities: No edema in lower extremities bilaterally. Results & Data Results & Data Vital Signs (Past 12 Hours) Vital Signs Temp Pulse Resp BP BP Pulse Ox O2 Del Method 07/11/24 08:30 167/63 H 07/11/24 07:59 36.5 C 65 16 210/78 H 98 Room Air 07/11/24 07:51 Room Air 07/10/24 23:15 36.7 C 64 18 128/69 95 Room Air 07/10/24 23:07 Room Air
--- NOTE | 2024-07-12 11:22 | Hospitalist Progress Note ---
Date of Service July 12, 2024 Assessment & Plan (1) Orthostasis: (2) Protein calorie malnutrition: (3) Suspected UTI: Plan Patient is 88-year-old female with PMH spasmodic dysphonia, essential tremor, HTN, balance problems, recurrent UTI who presented to the ER with complaint of dizziness and weakness. Currently awaiting long-term care placement Dizziness Weakness Palpitations Acute metabolic encephalopathy on possible early dementia On admission, in ER afebrile, P: 65, LR: 22, BP 158/61, O2 sat 100% on room air UA On admission: 3+leuk esterase, 21-50 WBC, 3-5 epithelial, no bacteria. Urine cx since recommending repeat collection repeat urine culture pending No leukocytosis, no significant electrolyte abnormality, negative troponin CT head: No acute intracranial findings CTA head: No large vessel occlusion, no intracranial aneurysm CTA neck: Unremarkable CTA neck CXR: No acute infiltrate, mild cardiomegaly per my interpretation MRI brain unremarkable Reported attempted ambulation in ER with dizziness symptoms. At rest is asymptom atic +orthostatic in ER Suspect orthostatic hypotension, possible vertigo component, possible post head injury/concussion component. ?arrhythmia, tachybrady syndrome with hx palpitations Patient expresses sensation of more left leg weakness with ambulating. On exam has bilateral lower extremity weakness and do not appreciate greater left-sided weakness Monitor BP Compression stockings Orthostatic vitals twice daily PT/OT eval- recommending rehab, denied. Pt currently awaiting [facility] placement Delirium precautions. Frequent reorientation, avoid sedating medications Continue to monitor on telemetry. Patient may benefit from outpatient barrel cooper Abnormal UA History recurrent UTI UA On admission: 3+leuk esterase, 21-50 WBC, 3-5 epithelial, no bacteria. Urine cx since recommending repeat collection repeat urine culture NGTD Denies urinary symptoms for >1month since drinking cranberry juice daily In ER given Rocephin 2GM IV IV Rocephin has since been discontinued, continue based on pending urine culture results UTI ruled out HTN In ER and on admission BP's variable Will monitor and if continued significant elevation may need to consider restarting BP agent Previously on amlodipine 2.5mg that has been discontinued secondary to orthostasis. continue to monitor Protein Calorie Malnutrition BMI: 13.5 Recommend 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s. Previously dietitian had recommended 3 times daily. Patient states does not like the flavor and texture but would be willing to try daily and will try chocolate flavor this time. continue dietary recommendations -multivitamin Essential Tremor Previously on propranolol which had been discontinued secondary to orthostatic hypotension Will continue to hold propranolol Diet: vegetarian, soft bite sized DVT Prophylaxis: Heparin SQ Dispo: awaiting [facility] care placement Admission and Anticipated Discharge Date Admission Date: July 01, 2024 Subjective patient seen laying in bed, was trying to get out to use the bathroom Denies acute concerns However wants to get out of the hospital Review of Systems Review of Systems: All systems reviewed & are unremarkable except as noted in Subjective Physical Exam Physical Exam: General: Alert, orientedx1. No acute distress, cachectic Psych: Appropriate mood and affect, pleasantly confused HEENT: NC/AT CV: RRR Resp: Breath sounds clear bilaterally, no increased effort of breathing. Abdomen:Soft Extremities: No edema in lower extremities bilaterally. Results & Data Results & Data Vital Signs (Past 12 Hours) Vital Signs Temp Pulse Pulse Resp BP Pulse Ox O2 Del Method 07/12/24 07:21 36.3 C L 65 14 145/71 H 99 Room Air 07/11/24 23:53 62 145/66 H
[2024-07-12] MEDS: CEROVITE ADV FORMULA TAB PO SCH (20:11)
--- NOTE | 2024-07-13 13:26 | Hospitalist Progress Note ---
Date of Service July 13, 2024 Assessment & Plan (1) Orthostasis: (2) Protein calorie malnutrition: (3) Suspected UTI: Plan 88-year-old female with PMH spasmodic dysphonia, essential tremor, HTN, balance problems, recurrent UTI who presented to the ER with complaint of dizziness and weakness. Currently awaiting longwall shearer operator care placement Dizziness Weakness Palpitations Acute metabolic encephalopathy on possible early dementia On admission, in ER afebrile, P: 65, LR: 22, BP 158/61, O2 sat 100% on room air UA On admission: 3+leuk esterase, 21-50 WBC, 3-5 epithelial, no bacteria. Urine cx contaminated No leukocytosis, no significant electrolyte abnormality, negative troponin CT head: No acute intracranial findings CTA head: No large vessel occlusion, no intracranial aneurysm CTA neck: Unremarkable CTA neck CXR: No acute infiltrate, mild cardiomegaly per my interpretation MRI brain unremarkable Reported attempted ambulation in ER with dizziness symptoms. At rest is asymptomatic +orthostasis in ER Suspect orthostatic hypotension, possible vertigo component, possible post head injury/concussion component. ?arrhythmia, tachybrady syndrome with hx palpitations Patient expresses sensation of more left leg weakness with ambulating. PT/OT eval- recommending rehab, denied. Pt currently awaiting residential placement. manager english working on this with family/POA Delirium precautions. Frequent reorientation, avoid sedating medications Abnormal UA History recurrent UTI UA On admission: 3+leuk esterase, 21-50 WBC, 3-5 epithelial, no bacteria. Urine cx since recommending repeat collection repeat urine culture NGTD Denies urinary symptoms for >1month since drinking cranberry juice daily In ER given Rocephin 2GM IV IV Rocephin has since been discontinued UTI ruled out Hypertension In ER and on admission BP's variable Previously on amlodipine 2.5mg that has been discontinued secondary to orthostasis. Continue to monitor Protein Calorie Malnutrition BMI: 13.5 Recommend 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s. Continue nutritional supplement Nutrition recs noted Essential Tremor Previously on propranolol which had been discontinued secondary to orthostatic hypotension Will continue to hold propranolol even on dc due to orthostaiss Diet: vegetarian, soft bite sized DVT Prophylaxis: Heparin SQ Dispo: awaiting residential care placement Updated daughter in law Garima at bedside I spent a total of 40 minutes coordinating, documenting and providing care for this patient excluding time spent in performance of separately billed services Admission and Anticipated Discharge Date Admission Date: July 01, 2024 Subjective Patient seen and examined. Patient is alert and oriented to person place and time Denies any complaints on review of systems Physical Exam Constitutional: + well hydrated and + thin; no acute dis tress Eyes: PERRL, conjunctivae normal, anicteric sclerae ENMT: external ear and nose normal, oropharynx normal Respiratory: normal respiratory effort, lungs clear to auscultation Cardiovascular: Rate/Rhythm: regular rate and regular rhythm Gastrointestinal (Abdomen): normal bowel sounds, soft, nontender, no hepatosplenomegaly Musculoskeletal: No pedal edema Neurologic: PERRL, EOMI, accommodation nl, no face palsy, no dysarthria Results & Data Results & Data Vital Signs (Past 12 Hours) Vital Signs Temp Pulse Resp BP Pulse Ox O2 Del Method 07/13/24 07:50 Room Air 07/13/24 06:22 36.8 C 60 17 143/73 H 97 Room Air
--- NOTE | 2024-07-14 12:53 | Hospitalist Progress Note ---
Date of Service July 14, 2024 Assessment & Plan (1) Orthostasis: (2) Protein calorie malnutrition: (3) Suspected UTI: Plan 88-year-old female with PMH spasmodic dysphonia, essential tremor, HTN, balance problems, recurrent UTI who presented to the ER with complaint of dizziness and weakness. Currently awaiting intermediate project manager care placement Dizziness Weakness Palpitations Acute metabolic encephalopathy on possible early dementia On admission, in ER afebrile, P: 65, LR: 22, BP 158/61, O2 sat 100% on room air UA On admission: 3+leuk esterase, 21-50 WBC, 3-5 epithelial, no bacteria. Urine cx contaminated No leukocytosis, no significant electrolyte abnormality, negative troponin CT head: No acute intracranial findings CTA head: No large vessel occlusion, no intracranial aneurysm CTA neck: Unremarkable CTA neck CXR: No acute infiltrate, mild cardiomegaly per my interpretation MRI brain unremarkable Reported attempted ambulation in ER with dizziness symptoms. At rest is asymptomatic +orthostasis in ER Suspect orthostatic hypotension, possible vertigo component, possible post head injury/concussion component. ?arrhythmia, tachybrady syndrome with hx palpitations Patient expresses sensation of more left leg weakness with ambulating. PT/OT eval- recommended rehab, denied. Pt currently awaiting intermediate project manager placement. manager restaurant working on this with family/POA Delirium precautions. Frequent reorientation, avoid sedating medications Abnormal UA History recurrent UTI UA On admission: 3+leuk esterase, 21-50 WBC, 3-5 epithelial, no bacteria. Urine cx since recommending repeat collection repeat urine culture NGTD Denies urinary symptoms for >1month since drinking cranberry juice daily In ER given Rocephin 2GM IV IV Rocephin has since been discontinued UTI ruled out Hypertension In ER and on admission BP's variable Previously on amlodipine 2.5mg that has been discontinued secondary to orthostasis. Continue to monitor Protein Calorie Malnutrition BMI: 13.5 Recommend 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s. Continue nutritional supplement Nutrition recs noted Essential Tremor Previously on propranolol which had been discontinued secondary to orthostatic hypotension Will continue to hold propranolol even on dc due to orthostaiss Diet: vegetarian, soft bite sized DVT Prophylaxis: Heparin SQ Dispo: awaiting intermediate project manager care placement Updated daughter in law Garima at bedside I spent a total of 30 minutes coordinating, documenting and providing care for this patient excluding time spent in performance of separately billed services Admission and Anticipated Discharge Date Admission Date: July 01, 2024 Subjective Patient seen and examined. Denies any complaints on review of systems Physical Exam Constitutional: + well hydrated and + thin; no acute dis tress Eyes: PERRL, conjunctivae normal, anicteric sclerae ENMT: external ear and nose normal, oropharynx normal Respiratory: normal respiratory effort, lungs clear to auscultation Cardiovascular: Rate/Rhythm: regular rate and regular rhythm Gastrointestinal (Abdomen): normal bowel sounds, soft, nontender, no hepatosplenomegaly Musculoskeletal: No pedal edema Neurologic: PERRL, EOMI, accommodation nl, no face palsy, no dysarthria Psychiatric: A+Ox3, euthymic affect Results & Data Results & Data Vital Signs (Past 12 Hours) Vital Signs Temp Pulse Resp BP Pulse Ox O2 Del Method 07/14/24 08:16 36.4 C L 68 16 148/76 H 99 Room Air
--- NOTE | 2024-07-15 13:25 | Hospitalist Progress Note ---
Date of Service July 15, 2024 Assessment & Plan (1) Orthostasis: (2) Protein calorie malnutrition: (3) Suspected UTI: Plan 88-year-old female with PMH spasmodic dysphonia, essential tremor, HTN, balance problems, recurrent UTI who presented to the ER with complaint of dizziness and weakness. Currently awaiting supervisor intermediates care placement Dizziness Weakness Palpitations Acute metabolic encephalopathy on possible early dementia On admission, in ER afebrile, P: 65, LR: 22, BP 158/61, O2 sat 100% on room air UA On admission: 3+leuk esterase, 21-50 WBC, 3-5 epithelial, no bacteria. Urine cx contaminated No leukocytosis, no significant electrolyte abnormality, negative troponin CT head: No acute intracranial findings CTA head: No large vessel occlusion, no intracranial aneurysm CTA neck: Unremarkable CTA neck CXR: No acute infiltrate, mild cardiomegaly per my interpretation MRI brain unremarkable Reported attempted ambulation in ER with dizziness symptoms. At rest is asymptomatic +orthostasis in ER Suspect orthostatic hypotension, possible vertigo component, possible post head injury/concussion component. ?arrhythmia, tachybrady syndrome with hx palpitations Patient expresses sensation of more left leg weakness with ambulating. PT/OT eval- recommended rehab, denied. Pt currently awaiting supervisor intermediates placement. wireless development manager working on this with family/POA Delirium precautions. Frequent reorientation, avoid sedating medications Abnormal UA History recurrent UTI UA On admission: 3+leuk esterase, 21-50 WBC, 3-5 epithelial, no bacteria. Urine cx since recommending repeat collection repeat urine culture NGTD Denies urinary symptoms for >1month since drinking cranberry juice daily In ER given Rocephin 2GM IV IV Rocephin has since been discontinued UTI ruled out Hypertension In ER and on admission BP's variable Previously on amlodipine 2.5mg that has been discontinued secondary to orthostasis. Continue to monitor Protein Calorie Malnutrition BMI: 13.5 Recommend 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s. Continue nutritional supplement Nutrition recs noted Essential Tremor Previously on propranolol which had been discontinued secondary to orthostatic hypotension Will continue to hold propranolol even on dc due to orthostaiss Diet: vegetarian, soft bite sized DVT Prophylaxis: Heparin SQ Dispo: awaiting supervisor intermediates care placement I spent a total of 25 minutes coordinating, documenting and providing care for this patient excluding time spent in performance of separately billed services Admission and Anticipated Discharge Date Admission Date: July 01, 2024 Subjective Patient seen and examined Denies any complaints on ROS Physical Exam Constitutional: + well hydrated and + thin; no acute dis tress Eyes: PERRL, conjunctivae normal, anicteric sclerae ENMT: external ear and nose normal, oropharynx normal Respiratory: normal respiratory effort, lungs clear to auscultation Cardiovascular: Rate/Rhythm: regular rate and regular rhythm Gastrointestinal (Abdomen): normal bowel sounds, soft, nontender, no hepatosplenomegaly Musculoskeletal: No pedal edema Neurologic: PERRL, EOMI, accommodation nl, no face palsy, no dysarthria Psychiatric: A+Ox3, euthymic affect Results & Data Results & Data Vital Signs (Past 12 Hours) Vital Signs Temp Pulse Resp BP Pulse Ox O2 Del Method 07/15/24 08:22 Room Air 07/15/24 07:54 36.6 C 67 16 159/68 H 95 Room Air
--- NOTE | 2024-07-16 12:58 | Hospitalist Progress Note ---
Date of Service July 16, 2024 Assessment & Plan (1) Orthostasis: (2) Protein calorie malnutrition: (3) Suspected UTI: Plan 88-year-old female with PMH spasmodic dysphonia, essential tremor, HTN, balance problems, recurrent UTI who presented to the ER with complaint of dizziness and weakness. Currently awaiting termite control servicer care placement Dizziness Weakness Palpitations Acute metabolic encephalopathy on possible early dementia On admission, in ER afebrile, P: 65, LR: 22, BP 158/61, O2 sat 100% on room air UA On admission: 3+leuk esterase, 21-50 WBC, 3-5 epithelial, no bacteria. Urine cx contaminated No leukocytosis, no significant electrolyte abnormality, negative troponin CT head: No acute intracranial findings CTA head: No large vessel occlusion, no intracranial aneurysm CTA neck: Unremarkable CTA neck CXR: No acute infiltrate, mild cardiomegaly per my interpretation MRI brain unremarkable Reported attempted ambulation in ER with dizziness symptoms. At rest is asymptomatic +orthostasis in ER Suspect orthostatic hypotension, possible vertigo component, possible post head injury/concussion component. ?arrhythmia, tachybrady syndrome with hx palpitations Patient expresses sensation of more left leg weakness with ambulating. PT/OT eval- recommended rehab, denied. Pt currently awaiting termite control servicer placement. sales representative sales manager working on this with family/POA Delirium precautions. Frequent reorientation, avoid sedating medications Abnormal UA History recurrent UTI UA On admission: 3+leuk esterase, 21-50 WBC, 3-5 epithelial, no bacteria. Urine cx since recommending repeat collection repeat urine culture NGTD Denies urinary symptoms for >1month since drinking cranberry juice daily In ER given Rocephin 2GM IV IV Rocephin has since been discontinued UTI ruled out Hypertension In ER and on admission BP's variable Previously on amlodipine 2.5mg that has been discontinued secondary to orthostasis. Continue to monitor Protein Calorie Malnutrition BMI: 13.8 Continue nutritional supplement Nutrition recs noted. Tolerating advanced diet Essential Tremor Previously on propranolol which had been discontinued secondary to orthostatic hypotension Will continue to hold propranolol even on dc due to orthostaiss Diet: vegetarian DVT Prophylaxis: Heparin SQ Dispo: awaiting termite control servicer care placement I spent a total of 25 minutes coordinating, documenting and providing care for this patient excluding time spent in performance of separately billed services Admission and Anticipated Discharge Date Admission Date: July 01, 2024 Subjective Patient seen and examined Denies any complaints on ROS Physical Exam Constitutional: + well hydrated and + thin; no acute dis tress Eyes: PERRL, conjunctivae normal, anicteric sclerae ENMT: external ear and nose normal, oropharynx normal Respiratory: normal respiratory effort, lungs clear to auscultation Cardiovascular: Rate/Rhythm: regular rate and regular rhythm Gastrointestinal (Abdomen): normal bowel sounds, soft, nontender, no hepatosplenomegaly Musculoskeletal: No pedal edema Neurologic: PERRL, EOMI, accommodation nl, no face palsy, no dysarthria Psychiatric: A+Ox3, euthymic affect Results & Data Results & Data Vital Signs (Past 12 Hours) Vital Signs Temp Pulse Resp BP Pulse Ox O2 Del Method 07/16/24 07:23 36.4 C L 63 16 154/74 H 98 Room Air
--- NOTE | 2024-07-17 10:38 | Hospitalist Progress Note ---
Date of Service July 17, 2024 Assessment & Plan (1) Orthostasis: (2) Protein calorie malnutrition: (3) Suspected UTI: Plan 88-year-old female with PMH spasmodic dysphonia, essential tremor, HTN, balance problems, recurrent UTI who presented to the ER with complaint of dizziness and weakness. Currently awaiting buttermaker helper care placement Dizziness Weakness Palpitations Acute metabolic encephalopathy on possible early dementia On admission, in ER afebrile, P: 65, LR: 22, BP 158/61, O2 sat 100% on room air UA On admission: 3+leuk esterase, 21-50 WBC, 3-5 epithelial, no bacteria. Urine cx contaminated No leukocytosis, no significant electrolyte abnormality, negative troponin CT head: No acute intracranial findings CTA head: No large vessel occlusion, no intracranial aneurysm CTA neck: Unremarkable CTA neck CXR: No acute infiltrate, mild cardiomegaly per my interpretation MRI brain unremarkable Reported attempted ambulation in ER with dizziness symptoms. At rest is asymptomatic +orthostasis in ER Suspect orthostatic hypotension, possible vertigo component, possible post head injury/concussion component. ?arrhythmia, tachybrady syndrome with hx palpitations Patient expresses sensation of more left leg weakness with ambulating. PT/OT eval- recommended rehab, denied. Pt currently awaiting buttermaker helper placement. online marketing manager working on this with family/POA Delirium precautions. Frequent reorientation, avoid sedating medications Abnormal UA History recurrent UTI UA On admission: 3+leuk esterase, 21-50 WBC, 3-5 epithelial, no bacteria. Urine cx since recommending repeat collection repeat urine culture NGTD Denies urinary symptoms for >1month since drinking cranberry juice daily In ER, she was given Rocephin 2GM IV IV Rocephin has since been discontinued UTI ruled out Hypertension In ER and on admission BP's variable Previously on amlodipine 2.5mg that has been discontinued secondary to orthostasis. Continue to monitor Protein Calorie Malnutrition BMI: 13.8 Continue nutritional supplement Nutrition recs noted. Tolerating advanced diet Essential Tremor Previously on propranolol which had been discontinued secondary to orthostatic hypotension Will continue to hold propranolol even on dc due to orthostaiss Diet: vegetarian DVT Prophylaxis: Heparin SQ Dispo: awaiting buttermaker helper care placement I spent a total of 25 minutes coordinating, documenting and providing care for this patient excluding time spent in performance of separately billed services Admission and Anticipated Discharge Date Admission Date: July 01, 2024 Subjective Patient seen and examined Denies any complaints on ROS Physical Exam Constitutional: + well hydrated and + thin; no acute dis tress Eyes: PERRL, conjunctivae normal, anicteric sclerae ENMT: external ear and nose normal, oropharynx normal Respiratory: normal respiratory effort, lungs clear to auscultation Cardiovascular: Rate/Rhythm: regular rate and regular rhythm Gastrointestinal (Abdomen): normal bowel sounds, soft, nontender, no hepatosplenomegaly Musculoskeletal: No pedal edema Neurologic: PERRL, EOMI, accommodation nl, no face palsy, no dysarthria Psychiatric: A+Ox3, euthymic affect Results & Data Results & Data Vital Signs (Past 12 Hours) Vital Signs Temp Pulse Resp BP Pulse Ox O2 Del Method 07/17/24 07:34 36.6 C 67 16 145/76 H 98 Room Air
--- NOTE | 2024-07-18 14:00 | Hospitalist Progress Note ---
Date of Service July 18, 2024 Assessment & Plan (1) Orthostasis: (2) Protein calorie malnutrition: (3) Suspected UTI: Plan 88-year-old female with PMH spasmodic dysphonia, essential tremor, HTN, balance problems, recurrent UTI who presented to the ER with complaint of dizziness and weakness. Currently awaiting buttermaker helper care placement Dizziness Weakness Palpitations Acute metabolic encephalopathy on possible early dementia On admission, in ER afebrile, P: 65, LR: 22, BP 158/61, O2 sat 100% on room air UA On admission: 3+leuk esterase, 21-50 WBC, 3-5 epithelial, no bacteria. Urine cx contaminated No leukocytosis, no significant electrolyte abnormality, negative troponin CT head: No acute intracranial findings CTA head: No large vessel occlusion, no intracranial aneurysm CTA neck: Unremarkable CTA neck CXR: No acute infiltrate, mild cardiomegaly per my interpretation MRI brain unremarkable Reported attempted ambulation in ER with dizziness symptoms. At rest is asymptomatic +orthostasis in ER Suspect orthostatic hypotension, possible vertigo component, possible post head injury/concussion component. ?arrhythmia, tachybrady syndrome with hx palpitations Patient expresses sensation of more left leg weakness with ambulating. PT/OT eval- recommended rehab, denied. Pt currently awaiting buttermaker helper placement. education general manager working on this with family/POA Delirium precautions. Frequent reorientation, avoid sedating medications Abnormal UA History recurrent UTI UA On admission: 3+leuk esterase, 21-50 WBC, 3-5 epithelial, no bacteria. Urine cx since recommending repeat collection repeat urine culture NGTD Denies urinary symptoms for >1month since drinking cranberry juice daily In ER, she was given Rocephin 2GM IV IV Rocephin has since been discontinued UTI ruled out Hypertension In ER and on admission BP's variable Previously on amlodipine 2.5mg that has been discontinued secondary to orthostasis. Continue to monitor Protein Calorie Malnutrition BMI: 13.8 Continue nutritional supplement Nutrition recs noted. Tolerating advanced diet Essential Tremor Previously on propranolol which had been discontinued secondary to orthostatic hypotension Will continue to hold propranolol even on dc due to orthostaiss Diet: vegetarian DVT Prophylaxis: Heparin SQ Dispo: awaiting buttermaker helper care placement I spent a total of 25 minutes coordinating, documenting and providing care for this patient excluding time spent in performance of separately billed services Admission and Anticipated Discharge Date Admission Date: July 01, 2024 Subjective Patient seen and examined Denies any complaints on ROS Physical Exam Constitutional: + well hydrated and + thin; no acute dis tress Eyes: PERRL, conjunctivae normal, anicteric sclerae ENMT: external ear and nose normal, oropharynx normal Respiratory: normal respiratory effort, lungs clear to auscultation Cardiovascular: Rate/Rhythm: regular rate and regular rhythm Gastrointestinal (Abdomen): normal bowel sounds, soft, nontender, no hepatosplenomegaly Musculoskeletal: No pedal edema Neurologic: PERRL, EOMI, accommodation nl, no face palsy, no dysarthria Psychiatric: A+Ox3, euthymic affect Results & Data Results & Data Vital Signs (Past 12 Hours) Vital Signs Temp Pulse Resp BP Pulse Ox O2 Del Method 07/18/24 07:22 36.3 C L 57 L 14 146/71 H 99 Room Air
--- NOTE | 2024-07-19 14:22 | Hospitalist Progress Note ---
Date of Service July 19, 2024 Assessment & Plan (1) Orthostasis: (2) Protein calorie malnutrition: (3) Suspected UTI: Plan 88-year-old female with PMH spasmodic dysphonia, essential tremor, HTN, balance problems, recurrent UTI who presented to the ER with complaint of dizziness and weakness. Currently awaiting intermodal dispatcher care placement Dizziness Weakness Palpitations Acute metabolic encephalopathy on possible early dementia On admission, in ER afebrile, P: 65, LR: 22, BP 158/61, O2 sat 100% on room air UA On admission: 3+leuk esterase, 21-50 WBC, 3-5 epithelial, no bacteria. Urine cx contaminated No leukocytosis, no significant electrolyte abnormality, negative troponin CT head: No acute intracranial findings CTA head: No large vessel occlusion, no intracranial aneurysm CTA neck: Unremarkable CTA neck CXR: No acute infiltrate, mild cardiomegaly per my interpretation MRI brain unremarkable Reported attempted ambulation in ER with dizziness symptoms. At rest is asymptomatic +orthostasis in ER Suspect orthostatic hypotension, possible vertigo component, possible post head injury/concussion component. ?arrhythmia, tachybrady syndrome with hx palpitations Patient expresses sensation of more left leg weakness with ambulating. PT/OT eval- recommended rehab, denied. Pt currently awaiting intermodal dispatcher placement. gas station manager working on this with family/POA Delirium precautions. Frequent reorientation, avoid sedating medications Abnormal UA History recurrent UTI UA On admission: 3+leuk esterase, 21-50 WBC, 3-5 epithelial, no bacteria. Urine cx since recommending repeat collection repeat urine culture NGTD Denies urinary symptoms for >1month since drinking cranberry juice daily In ER, she was given Rocephin 2GM IV IV Rocephin has since been discontinued UTI ruled out Hypertension In ER and on admission BP's variable Previously on amlodipine 2.5mg that has been discontinued secondary to orthostasis. Continue to monitor Protein Calorie Malnutrition BMI: 13.8 Continue nutritional supplement Nutrition recs noted. Tolerating advanced diet Essential Tremor Previously on propranolol which had been discontinued secondary to orthostatic hypotension Will continue to hold propranolol even on dc due to orthostaiss Diet: vegetarian DVT Prophylaxis: Heparin SQ Dispo: awaiting intermodal dispatcher care placement I spent a total of 25 minutes coordinating, documenting and providing care for this patient excluding time spent in performance of separately billed services Admission and Anticipated Discharge Date Admission Date: July 01, 2024 Subjective Patient seen and examined Denied any new complaints Physical Exam Constitutional: + well hydrated and + thin; no acute dis tress Eyes: PERRL, conjunctivae normal, anicteric sclerae ENMT: external ear and nose normal, oropharynx normal Respiratory: normal respiratory effort, lungs clear to auscultation Cardiovascular: Rate/Rhythm: regular rate and regular rhythm Gastrointestinal (Abdomen): normal bowel sounds, soft, nontender, no hepatosplenomegaly Musculoskeletal: No pedal edema Neurologic: PERRL, EOMI, accommodation nl, no face palsy, no dysarthria Psychiatric: A+Ox3, euthymic affect Results & Data Results & Data Vital Signs (Past 12 Hours) Vital Signs Temp Pulse Resp BP Pulse Ox O2 Del Method 07/19/24 07:25 36.3 C L 61 14 143/75 H 98 Room Air
--- NOTE | 2024-07-20 15:34 | Hospitalist Progress Note ---
Date of Service July 20, 2024 Assessment & Plan (1) Physical deconditioning: (2) History of traumatic head injury: (3) Protein calorie malnutrition: (4) Vertigo due to brain injury: (5) Hypertension: (6) Esophageal dysphagia: (7) Orthostasis: Plan Patient is doing well. Symptoms him to be managed and controlled. Continue current medications Continue therapies Indication with case management continue to pursue placement Admission and Anticipated Discharge Date Admission Date: July 01, 2024 Subjective No acute issues overnight. Patient denies any chest pain. Dizziness has stabilized. Physical Exam Physical Exam: Constitutional: Alert, sitting in chair, dressed in a track suit Lungs: Clear to auscultation, decreased, no wheezes rales or rhonchi CV: S1-S2, regular Extremities: No significant edema Neuro: No focal deficits Psych: Cooperative, normal mood Results & Data Results & Data Vital Signs (Past 12 Hours) Vital Signs Temp Pulse Resp BP Pulse Ox O2 Del Method 07/20/24 08:10 36.4 C L 71 16 139/59 L 98 Room Air
--- NOTE | 2024-07-21 12:35 | Hospitalist Progress Note ---
Date of Service July 21, 2024 Assessment & Plan (1) Physical deconditioning: (2) History of traumatic head injury: (3) Protein calorie malnutrition: (4) Vertigo due to brain injury: (5) Hypertension: (6) Esophageal dysphagia: (7) Orthostasis: Plan Continue current plan of care Continue therapies Communication with case management, having difficulty finding placement. Case management updating family and requesting possibly applications to other facilities for rehab. Admission and Anticipated Discharge Date Admission Date: July 01, 2024 Subjective No acute issues overnight. Patient reports that the dizziness she presented with has significantly improved and only very rarely occurs and is much less severe Physical Exam Physical Exam: Constitutional: Alert Lungs: Clear to auscultation, decreased, no wheezes rales or rhonchi CV: S1-S2, regular Abdomen: Soft, nontender, nondistended Extremities: No significant edema Neuro: No focal deficits Psych: Cooperative, normal mood Results & Data Results & Data Vital Signs (Past 12 Hours) Vital Signs Temp Pulse Resp BP Pulse Ox O2 Del Method 07/21/24 07:34 36.4 C L 63 16 143/75 H 98 Room Air
--- NOTE | 2024-07-22 13:01 | Hospitalist Progress Note ---
Date of Service July 22, 2024 Assessment & Plan (1) Physical deconditioning: (2) History of traumatic head injury: (3) Protein calorie malnutrition: (4) Vertigo due to brain injury: (5) Hypertension: (6) Esophageal dysphagia: (7) Orthostasis: Plan Patient is at her baseline. Overall significantly improved from the time of admission. Patient is ready for discharge whenever a safe discharge plan can be coordinated. Discussed with the patient why she did not want to take her medications this morning. Overall as such she is frustrated about her current situation and this is the 1 thing she has control over. She states she would consider taking her medications a little later today. Case management continuing to work with daughter to pursue placement options may need to consider application at other facilities or potentially applying to different levels of care. Patient may be a good candidate for personal care/assisted living. Phone conversation with patient's [id number] , Garima. She has been calling a underground supervisor to send information over to [place] as well. I did raise the possibility of going to another facility or considering a personal care or assisted living facility. She did mention [facility] and a place out towards [place] near [facility] that may be agreeable to for the patient. Admission and Anticipated Discharge Date Admission Date: July 01, 2024 Subjective Patient very frustrated that she is still here in the hospital. Nursing reports that she refused medicines this morning. Physical Exam Physical Exam: Constitutional: Alert, sitting on edge of the bed, patient has her belongings packed and sitting on the chair next to her HEENT: Mucous membranes moist. Lungs: Clear to auscultation, decreased, no wheezes rales or rhonchi CV: S1-S2, regular Abdomen: Soft, nontender, nondistended Extremities: No significant edema Neuro: No focal deficits Psych: Frustrated Results & Data Results & Data Vital Signs (Past 12 Hours) Vital Signs Pulse Resp BP 07/22/24 08:02 79 18 165/80 H
--- NOTE | 2024-07-23 08:10 | Hospitalist Progress Note ---
Date of Service July 23, 2024 Assessment & Plan (1) Physical deconditioning: (2) History of traumatic head injury: (3) Protein calorie malnutrition: (4) Vertigo due to brain injury: (5) Hypertension: (6) Esophageal dysphagia: (7) Orthostasis: Plan Ms. Powell is an 88-year-old female with PMH spasmodic dysphonia, essential tremor, HTN, balance problems, recurrent UTI who presented to the ER with complaint of dizziness and weakness. Currently awaiting shelter care placement Patient is ready for discharge whenever a safe discharge plan can be coordinated. Case management continuing to work with daughter to pursue placement options may need to consider application at other facilities or potentially applying to different levels of care. P #Orthostasis *improving #Palpitations #Acute metabolic encephalopathy on possible early dementia Stable On admission, in ER afebrile, P: 65, LR: 22, BP 158/61, O2 sat 100% on room air UA On admission: 3+leuk esterase, 21-50 WBC, 3-5 epithelial, no bacteria. Urine cx contaminated CT head: No acute intracranial findings CTA head: No large vessel occlusion, no intracranial aneurysm CTA neck: Unremarkable CTA neck CXR: No acute infiltrate, mild cardiomegaly per my interpretation MRI brain unremarkable +orthostasis in ER PT/OT eval- recommended rehab, denied. Pt currently awaiting terminal gauger placement. qc manager working on this with family/POA Delirium precautions. Frequent reorientation, avoid sedating medications #Abnormal UA #History recurrent UTI UA On admission: 3+leuk esterase, 21-50 WBC, 3-5 epithelial, no bacteria. Urine cx since recommending repeat collection repeat urine culture NGTD Denies urinary symptoms for >1month since drinking cranberry juice daily no further abx necessary #Prior Hypertension In ER and on admission BP's variable stable at this time, monitor vs per unit #Protein Calorie Malnutrition BMI: 13.8 Continue nutritional supplement Nutrition recs noted. Tolerating advanced diet #Essential Tremor Previously on propranolol which had been discontinued secondary to orthostatic hypotension Discontinued propranolol given orthostasis Diet: vegetarian DVT Prophylaxis: Heparin SQ Dispo: awaiting shelter care placement Admission and Anticipated Discharge Date Admission Date: July 01, 2024 Subjective Evaluated in bedside chair No acute events overnight Reports feeling happy because of the planes flying around with banners for the football game Denies any new concerns this am Results & Data Results & Data Vital Signs (Past 12 Hours) Vital Signs Temp Pulse Resp BP Pulse Ox O2 Del Method 07/22/24 21:32 36.4 C L 67 16 116/69 95 Room Air Medications Administered Home Medications Medication Instructions Recorded Confirmed Last Taken vit C 250 mg-E 90 mg-zinc 40 1 tab PO BID 12/15/23 07/01/24 05/23/24 mg-copper 1 [id number]-dbyosj chew tablet (PreserVision AREDS-2) Active Medications Generic Name Dose Route Start Last Admin Trade Name Freq PRN Reason Stop Dose Admin Acetaminophen 650 mg 07/01/24 17:02 07/16/24 06:41 Acetaminophen 325 Mg Tab PO 07/31/24 17:01 650 mg Q4H PRN Administration Pain or Fever Famotidine 20 mg 07/03/24 09:00 07/23/24 09:21 Famotidine 20 Mg Tab PO 08/02/24 08:59 20 mg BID ABBE Administration Heparin Sodium (Porcine) 5,000 units 07/01/24 21:00 07/23/24 09:19 Heparin Sod 5,000 Unit/0.5 Ml Vial SQ 07/31/24 20:59 Not Given Q12 ABBE Meclizine HCl 25 mg 07/03/24 14:00 07/23/24 09:18 Meclizine Hcl 25 Mg Tab PO 08/02/24 13:59 25 mg TID ABBE Administration Multivitamins/Minerals 1 tab 07/12/24 18:30 07/23/24 09:18 Cerovite Adv Formula Tab PO 08/11/24 18:29 1 tab QAM ABBE Administration
--- NOTE | 2024-07-24 07:03 | Hospitalist Progress Note ---
Date of Service July 24, 2024 Assessment & Plan (1) Physical deconditioning: (2) History of traumatic head injury: (3) Protein calorie malnutrition: (4) Vertigo due to brain injury: (5) Hypertension: (6) Esophageal dysphagia: (7) Orthostasis: Plan Ms. Powell is an 88-year-old female with PMH spasmodic dysphonia, essential tremor, HTN, balance problems, recurrent UTI who presented to the ER with complaint of dizziness and weakness. Currently awaiting detention care placement Patient is ready for discharge whenever a safe discharge plan can be coordinated. Case management continuing to work with daughter to pursue placement options may need to consider application at other facilities or potentially applying to different levels of care. No changes to plan #Orthostasis *improving #Palpitations #Acute metabolic encephalopathy on possible early dementia Stable On admission, in ER afebrile, P: 65, LR: 22, BP 158/61, O2 sat 100% on room air UA On admission: 3+leuk esterase, 21-50 WBC, 3-5 epithelial, no bacteria. Urine cx contaminated CT head: No acute intracranial findings CTA head: No large vessel occlusion, no intracranial aneurysm CTA neck: Unremarkable CTA neck CXR: No acute infiltrate, mild cardiomegaly per my interpretation MRI brain unremarkable +orthostasis in ER PT/OT eval- recommended rehab, denied. Pt currently awaiting detention placement. manager play working on this with family/POA Delirium precautions. Frequent reorientation, avoid sedating medications #Abnormal UA #History recurrent UTI UA On admission: 3+leuk esterase, 21-50 WBC, 3-5 epithelial, no bacteria. Urine cx since recommending repeat collection repeat urine culture NGTD Denies urinary symptoms for >1month since drinking cranberry juice daily no further abx necessary #Prior Hypertension In ER and on admission BP's variable stable at this time, monitor vs per unit #Protein Calorie Malnutrition BMI: 13.8 Continue nutritional supplement Nutrition recs noted. Tolerating advanced diet #Essential Tremor Previously on propranolol which had been discontinued secondary to orthostatic hypotension Discontinued propranolol given orthostasis Diet: vegetarian DVT Prophylaxis: Heparin SQ Dispo: awaiting superintendent container terminal care placement Admission and Anticipated Discharge Date Admission Date: July 01, 2024 Subjective Evaluated patient at beside with daughter in law denies any acute concerns, reports feeling hopeful that she will be able to get out in the coming week Physical Exam Constitutional: WD/WN, vitals as above Respiratory: normal respiratory effort, lungs clear to auscultation Cardiovascular: RRR, no murmur, no edema Results & Data Results & Data Vital Signs (Past 12 Hours) Vital Signs Temp Pulse Resp BP Pulse Ox O2 Del Method 07/23/24 21:17 36.5 C 74 16 130/76 98 Room Air Medications Administered Home Medications Medication Instructions Recorded Confirmed Last Taken vit C 250 mg-E 90 mg-zinc 40 1 tab PO BID 12/15/23 07/01/24 05/23/24 mg-copper 1 dg-frsqch-kbvywl chew tablet (PreserVision AREDS-2) Active Medications Generic Name Dose Route Start Last Admin Trade Name Freq PRN Reason Stop Dose Admin Acetaminophen 650 mg 07/01/24 17:02 07/16/24 06:41 Acetaminophen 325 Mg Tab PO 07/31/24 17:01 650 mg Q4H PRN Administration Pain or Fever Famotidine 20 mg 07/03/24 09:00 07/24/24 08:03 Famotidine 20 Mg Tab PO 08/02/24 08:59 20 mg BID ABBE Administration Heparin Sodium (Porcine) 5,000 units 07/01/24 21:00 07/24/24 08:03 Heparin Sod 5,000 Unit/0.5 Ml Vial SQ 07/31/24 20:59 5,000 units Q12 ABBE Administration Meclizine HCl 25 mg 07/03/24 14:00 07/24/24 14:18 Meclizine Hcl 25 Mg Tab PO 08/02/24 13:59 25 mg TID ABBE Administration Multivitamins/Minerals 1 tab 07/12/24 18:30 07/24/24 08:02 Cerovite Adv Formula Tab PO 08/11/24 18:29 1 tab QAM ABBE Administration
--- NOTE | 2024-07-25 12:28 | Hospitalist Progress Note ---
Date of Service July 25, 2024 Assessment & Plan (1) Physical deconditioning: (2) History of traumatic head injury: (3) Protein calorie malnutrition: (4) Vertigo due to brain injury: (5) Hypertension: (6) Esophageal dysphagia: (7) Orthostasis: Plan Continue current care Case management pursuing placement options Admission and Anticipated Discharge Date Admission Date: July 01, 2024 Subjective No acute issues overnight. Enjoying her breakfast. Physical Exam Physical Exam: Constitutional: Alert, sitting in chair, no acute distress Lungs: No respiratory distress CV: Regular Abdomen: Soft, Extremities: No significant edema Neuro: No focal deficits Psych: Cooperative, slightly depressed due to her current situation Results & Data Results & Data Vital Signs (Past 12 Hours) Vital Signs Temp Pulse Pulse Resp BP BP Pulse Ox 07/25/24 12:03 36.4 C L 70 14 143/72 H 98 07/25/24 07:22 36.4 C L 76 16 149/78 H 94 O2 Del Method 07/25/24 12:03 Room Air 07/25/24 07:22 Room Air
[2024-07-26 07:50] VITALS: BP 156/72; PULSE 84; RESP 17; TEMP 97.5; O2SAT 98
--- NOTE | 2024-07-26 12:03 | Discharge Summary ---
Discharge Summary Date of Service July 26, 2024 Principal Dx & Hospital Course #1 = Principal Diagnosis (1) Physical deconditioning: (2) History of traumatic head injury: (3) Protein calorie malnutrition: (4) Vertigo due to brain injury: (5) Hypertension: (6) Esophageal dysphagia: (7) Orthostasis: Plan Patient presented to the emergency room with complaints of dizziness and vertigo. Patient underwent an extensive evaluation in the emergency room and it was determined that most likely the patient's vertigo was due to a traumatic brain injury she had earlier in the year. She was ruled out for acute stroke and vestibular causes for her symptoms. Patient had significant improvement of her symptoms with scheduled meclizine. She was ruled out for urinary tract infection. She did have some issues with orthostasis, therefore we are not aggressively managing her borderline hypertension and continuing to allow for some mild hypertension to prevent significant orthostatic symptoms. All of her antihypertensive medications were held. The patient is known to have chronic esophageal dysphagia and has had previous dilatations. Patient is not interested in any additional procedures and her diet was modified to manage her chronic dysphagia and she tolerated well. Patient and family were hesitant of her returning to independent living. Generalized physical deconditioning and memory prevented her from living safely. Case management was involved in her care. They assisted in attempting to find rehab placement. Over the course of the next few weeks ongoing therapies occurred in the hospital while placement options were evaluated and coordinated. Ultimately patient was accepted to [facility] for ongoing rehabilitation. On the day of discharge patient is up and ambulating. She is doing a lot of her self-care but is still quite weak and deconditioned and would have definite benefits from a more rigorous rehab program. She be discharged for ongoing outpatient rehabilitation and care. Notes For Next Care Provider Medication Changes From Visit Meclizine scheduled Pepcid for chronic dysphagia Admission HPI Per Admitting Provider Patient is 88-year-old female with PMH spasmodic dysphonia, essential tremor, HTN, balance problems, recurrent UTI presented to ER with complaint of dizziness and weakness. History obtained from patient, patient's [id number] and inpatient chart review. Patient reports history of fall and traumatic head i njury resulting in reported temporal fracture and January 2024. She reports she was seen at [facility] trauma center and reports no brain bleed at that time. She states since that time feels she has been having more dizziness with sitting and standing. She reports intermittent headaches occurring approximately once a month that she has not noted relation with dizziness. Reports intermittent bilateral ear pain since head injury January 2024. Also reports feels like having more trouble with her memory since and feels that she may have decreased hearing bilateral ears since incident. She states had followed up once with trauma team after the incident and was told that she may possibly have ongoing symptoms. Patient states feels increased episodes of dizziness over the past couple of months. She describes sensation of objects moving when she sits up and stands. States will sometimes also have sensation that her heart is racing when she is having the dizziness. Feels like vision is sometimes "hazy" when this happens. Denies complete loss of vision or noted diplopia. Denies associated nausea, vomiting, chest pain, shortness of breath, syncope. Per chart review patient with history of hospitalization 05/23/2024- 05/31/2024 for near syncope, dizziness, ambulatory dysfunction. Had noted orthostatic hypotension in which her home amlodipine and propranolol were held and patient used compression stockings. She was discharged to rehab for 2 weeks and is now back home. Reports going to PT twice a week. Patient feels for past couple months increased leg weakness and feels left leg is more weak than right with walking. Denies paresthesias or back pain. States not using compression stockings at home. She states yesterday was feeling well and completed household cleaning. Went to bed around 10:30 PM. She reports awaking 2:30 AM to urinate and when she sat up and attempted walking she had sensation of objects moving initially felt like spinning and then "[id number]. She states attempted to ambulate but felt unstable and off balance so ended up crawling to and from bathroom. She states had to sit on edge of bed for awhile last night because she was feeling too weak to get in bed. States she was still feeling dizzy "for awhile". States she called daughter in law this morning to alert her of her symptoms and was dizzy and off balance walking to car to come to ER today. Patient states that in past had followed with manager of merchandising in [place] for these episodes of heart racing and had 24 hour surveillance system monitor "that was ok", however patient does state she didn't have symptoms while monitor was on. Reports was having dysuria and was following with urology, Dr Valdovinos. States for past month drinking cranberry juice and since has not had any urinary symptoms. Denies fever/chills, diaphoresis, N/V/D/C, GUNN, dizziness, syncope, vision changes, neck pain, CP, SOB, orthopnea, cough, sore throat, choking, ear discharge, tinnitus, rhinorrhea, abdominal pain, paresthesias, extremity edema, rashes. Admission Exam Per Admitting Provider See H&P Discharge Exam Constitutional: Alert HEENT: Mucous membranes moist. Lungs: Clear to auscultation, decreased, no wheezes rales or rhonchi CV: S1-S2, regular Abdomen: Soft, nontender, nondistended Extremities: No significant edema Neuro: No focal deficits Psych: Cooperative, normal mood Updated Medication List Medication Instructions Recorded Confirmed Type vit C 250 mg-E 90 mg-zinc 40 1 tab PO BID 12/15/23 07/01/24 History mg-copper 1 mp-saklej-mfcjzm chew tablet (PreserVision AREDS-2) acetaminophen 325 mg tablet 650 mg (2 x 325 mg) PO Q4H PRN 07/26/24 Rx fever or pain #30 tabs famotidine 20 mg tablet 20 mg PO BID #60 tabs 07/26/24 Rx meclizine 25 mg tablet 25 mg PO TID #90 tabs 07/26/24 Rx gcrkgmcw-nig-eomfg acid 0.4 1 tab PO QAM #30 tabs 07/26/24 Rx mg-lycopene 300 mcg-lutein 250 mcg tablet (Cerovite Senior) polyethylene glycol 3350 17 gram 17 g PO DAILY PRN constipation #30 07/26/24 Rx oral powder packet (Miralax) ea Hospital Stay Data Consultations 07/01/24 13:48 ED Decision to Admit Stat Diagnostic Imagining Performed 07/01/24 10:42 CT angio head w con Stat CT angio neck with con Stat CT head/brain wo con Stat 07/01/24 15:12 MRI Brain [MR brain wo con] Routine Reviewed imaging, laboratory and diagnostic studies. Pertinent findings as below. CBC and BMP stable and at baseline MRI of the brain showed no acute intracranial abnormalities CTA of the head and neck unremarkable Urine culture x 2 no specific growth of singular organism Pending Results Patient Have Any Pending Studies at Discharge: No Discharge Instructions Given to Patient (Per Discharging Provider) Recommend ongoing physical and Occupational Therapy Total Time Total Time Spent Total Time Spent (In Minutes): 35
== END 2024-07-26 13:40 | DRG 91 ==
LOC: ED 10:29 → SUATTDRO 14:16 → 2N 14:16 → 3N 07-11 21:50 → 3W 07-11 21:55